=== PATIENT | male | born 1940 | race Caucasian/White ===

== ENCOUNTER → 2016-11-14 | Day surgery (SDC) | payer MEDICARE, BC, OTHER ==
[~2016-11-14] VITALS: Ht 193 cm; Wt 86.2 kg
[~2016-11-14] MED LIST: ACETAMINOPHEN 325 MG TAB PO PRN; ACETYLCHOLINE OPHTH SOLN 1% 2ML As Ordered ONE; AMLO25TA PO; ASPI1TAB PO; AcetaZOLAMIDE 500 MG ER CAP PO ONE; BALANCED SALT IRRIGATION SOLUTION 500ML BAG (FOR OR EYE MACHINE) As Ordered ONE; CEFUROXIME 1MG/0.1ML INTRACAMERAL INJ As Ordered ONE; CHLO0.124 MT; CYCLOPENTOLATE 2% OPHTH SOLN As Ordered ONE; CYCLOPENTOLATE 2% OPHTH SOLN XX ONE; D5W/0.2% SODIUM CHLORIDE 1,000 ML IV SCH; D5W/0.2% SODIUM CHLORIDE 250 ML IV SCH; DULC5TAB PO; GABA-282 PO; HEALON DUET (HEALON 10MG/ML 0.55ML & HEALON ENDOCOAT 30MG/ML 0.85ML) As Ordered ONE; KETOROLAC 0.5% OPHTH SOLN OD ONE; LATA5OPD OU; LIDOCAINE 1% SDV 5 ML VIAL As Ordered ONE; LIDOCAINE 4% INJ 5 ML AMP OU ONE; MAGO400T PO; MIDAZOLAM INJ 2 MG/2 ML VIAL (J2250) As Ordered ONE; OCUVCAP2 PO; OFLOXACIN 0.3 % (OCUFLOX) OPTH SOL 5ML As Ordered ONE; OFLOXACIN 0.3 % (OCUFLOX) OPTH SOL 5ML XX ONE; OMEG100011 PO; PHENYLEPHRINE 2.5% OPHTH SOL 2ML As Ordered ONE; PHENYLEPHRINE 2.5% OPHTH SOL 2ML XX ONE; POVIDONE-IODINE 5% OPHTH PREP SOL 30ML As Ordered ONE; PROPARACAINE 0.5% OPHTH SOL 15ML OD PRN; PROSCAP PO; SIMV40TA2 PO; TRIMETHOBENZAMIDE 300 MG CAP PO PRN; TROPICAMIDE 1% OPHTH SOLN 2 ML As Ordered ONE; TROPICAMIDE 1% OPHTH SOLN 2 ML XX ONE; fentaNYL 100 MCG/2 ML INJECTION (J3010) As Ordered ONE
[2016-11-14 09:05] VITALS: BP 165/71
--- NOTE | 2016-11-14 09:22 | RO ---
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 POSTPROCEDURE DIAGNOSIS: Age-related nuclear cataract and open-angle glaucoma, right eye. PROCEDURE: Phacoemulsification and posterior chamber intraocular lens implantation and endocyclophotocoagulation right eye. Lens used was an AU00T0, 18.5 Diopter. ANESTHESIA: Topical with sedation. DESCRIPTION OF PROCEDURE: The patient was prepped and draped in the usual fashion. A lid speculum was placed between the lids. The eye was fixated. A stab incision was made to the anterior chamber, and 1% non-preserved Lidocaine and viscoelastic was instilled. The eye was re-fixated. A 2.4 mm keratome was used to make a clear corneal temporal limbal incision. Capsulorrhexis was begun with a 30-gauge bent needle and then carried out in a circular fashion with capsulorrhexis forceps. The lens was hydrodissected, and phacoemulsification was used to groove the nucleus in two meridians. The nucleus was then cracked into four quadrants. Each quadrant was removed with the phacoemulsification unit. Any remaining cortex was removed with the I A unit. Capsular bag was refilled with viscoelastic. A posterior chamber intraocular lens was placed in the capsular bag without difficulty. The eye was refilled with viscoelastic ballooning up the iris and the endocyclophotocoagulation probe was introduced into the eye. THe ciliary processes were directly visualized and 270 degrees of ciliary processes were lasered without difficulty. The probe was removed and any remaining viscoelastic was removed with the I A unit. The wound was hydrated, and Miochol and cefuroxime were instilled. The patient tolerated the procedure well and went to the recovery room in stable condition.
== END | disposition home or self-care (01) ==
LOC: M SDC 06:50
PROVIDERS: ATTEND Ophthalmology
DX: H25.11 Age-related nuclear cataract, right eye (principal); H40.10X0 Unspecified open-angle glaucoma, stage unspecified; I10 Essential (primary) hypertension; E78.5 Hyperlipidemia, unspecified; N40.0 Benign prostatic hyperplasia without lower urinary tract symptoms; Z79.82 Long term (current) use of aspirin; Z79.899 Other long term (current) drug therapy
CPT/HCPCS: 66711; 66984; J2250; J3010; V2632

== ENCOUNTER → 2017-01-15 | Outpatient (REF) | payer MEDICARE, OTHER ==
[~2017-01-15] MED LIST changes: -ACETAMINOPHEN 325 MG TAB PO PRN; -ACETYLCHOLINE OPHTH SOLN 1% 2ML As Ordered ONE; -AcetaZOLAMIDE 500 MG ER CAP PO ONE; -BALANCED SALT IRRIGATION SOLUTION 500ML BAG (FOR OR EYE MACHINE) As Ordered ONE; -CEFUROXIME 1MG/0.1ML INTRACAMERAL INJ As Ordered ONE; -CYCLOPENTOLATE 2% OPHTH SOLN As Ordered ONE; -CYCLOPENTOLATE 2% OPHTH SOLN XX ONE; -D5W/0.2% SODIUM CHLORIDE 1,000 ML IV SCH; -D5W/0.2% SODIUM CHLORIDE 250 ML IV SCH; -HEALON DUET (HEALON 10MG/ML 0.55ML & HEALON ENDOCOAT 30MG/ML 0.85ML) As Ordered ONE; -KETOROLAC 0.5% OPHTH SOLN OD ONE; -LIDOCAINE 1% SDV 5 ML VIAL As Ordered ONE; -LIDOCAINE 4% INJ 5 ML AMP OU ONE; -MIDAZOLAM INJ 2 MG/2 ML VIAL (J2250) As Ordered ONE; -OFLOXACIN 0.3 % (OCUFLOX) OPTH SOL 5ML As Ordered ONE; -OFLOXACIN 0.3 % (OCUFLOX) OPTH SOL 5ML XX ONE; -PHENYLEPHRINE 2.5% OPHTH SOL 2ML As Ordered ONE; -PHENYLEPHRINE 2.5% OPHTH SOL 2ML XX ONE; -POVIDONE-IODINE 5% OPHTH PREP SOL 30ML As Ordered ONE; -PROPARACAINE 0.5% OPHTH SOL 15ML OD PRN; -TRIMETHOBENZAMIDE 300 MG CAP PO PRN; -TROPICAMIDE 1% OPHTH SOLN 2 ML As Ordered ONE; -TROPICAMIDE 1% OPHTH SOLN 2 ML XX ONE; -fentaNYL 100 MCG/2 ML INJECTION (J3010) As Ordered ONE
[2017-01-17 00:08] LABS: PSA % FREE 20.4 % (.); PSA FREE 1.1 ng/mL; PSA TOTAL 5.4 ng/mL (0.0-4.0)
== END ==
LOC: M LABDRAW1 10:56
PROVIDERS: ATTEND Urology
DX: R97.20 Elevated prostate specific antigen [PSA] (principal)

== ENCOUNTER → 2017-05-10 | Outpatient (REF) | payer MEDICARE, OTHER ==
[2017-05-10 13:33] LABS: ALBUMIN 3.8 GM/DL (3.2-5.2); ALBUMIN/GLOBULIN RATIO 1.15 (1.00-1.93); ALKALINE PHOSPHATASE 44 U/L (45-117); ALT/SGPT 26 U/L (12-78); ANION GAP 7 MEQ/L (8-16); AST/SGOT 16 U/L (15-37); BILIRUBIN,TOTAL 0.6 MG/DL (0.2-1.0); BLOOD UREA NITROGEN 22 MG/DL (7-18); CALCIUM LEVEL 8.6 MG/DL (8.8-10.2); CARBON DIOXIDE LEVEL 29 MEQ/L (21-32); CHLORIDE LEVEL 104 MEQ/L (98-107); CHOLESTEROL LEVEL 157 MG/DL (<200); CREATININE FOR GFR 0.74 MG/DL (0.70-1.30); GLOMERULAR FILTRATION RATE > 60.0 (>42); GLUCOSE, FASTING 93 MG/DL (83-110); POTASSIUM SERUM 3.9 MEQ/L (3.5-5.1); SODIUM LEVEL 140 MEQ/L (136-145); TOTAL PROTEIN 7.1 GM/DL (6.4-8.2); TRIGLYCERIDES LEVEL 123 MG/DL (<150)
== END ==
LOC: M LABDRAW1 09:36
PROVIDERS: ATTEND Emergency Medicine
DX: I10 Essential (primary) hypertension (principal)

== ENCOUNTER → 2018-04-15 | Outpatient (REF) | payer MEDICARE, OTHER ==
[2018-04-15 17:47] LABS: C REACTIVE PROTEIN QUANTITATIV < 0.30 MG/DL (0.00-0.30)
[2018-04-15 18:07] LABS: ERYTHROCYTE SEDIMENTATION RATE 5 mm/hr (0-20)
[2018-04-18 14:14] LABS: Lyme Disease IgG Ab 18 kDa Ban Absent (.); Lyme Disease IgG Ab 23 kDa Ban Absent (.); Lyme Disease IgG Ab 28 kDa Ban Absent (.); Lyme Disease IgG Ab 30 kDa Ban Absent (.); Lyme Disease IgG Ab 39 kDa Ban Absent (.); Lyme Disease IgG Ab 41 kDa Ban Present (.); Lyme Disease IgG Ab 45 kDa Ban Absent (.); Lyme Disease IgG Ab 58 kDa Ban Absent (.); Lyme Disease IgG Ab 66 kDa Ban Absent (.); Lyme Disease IgG Ab 93 kDa Ban Absent (.); Lyme Disease IgG West Blot Int Negative (.); Lyme Disease IgG/IgM Antibodie <0.91 ISR (0.00-0.90); Lyme Disease IgM Ab 23 kDa Ban Absent (.); Lyme Disease IgM Ab 39 kDa Ban Absent (.); Lyme Disease IgM Ab 41 kDa Ban Absent (.); Lyme Disease IgM Ab Quantitati 0.91 index (0.00-0.79); Lyme Disease IgM West Blot Int Negative (.)
== END ==
LOC: M LABDRAW1 15:59
DX: M25.50 Pain in unspecified joint (principal); S20.361A Insect bite (nonvenomous) of right front wall of thorax, initial encounter; W57.XXXA Bitten or stung by nonvenomous insect and other nonvenomous arthropods, initial encounter; Y92.9 Unspecified place or not applicable
CPT/HCPCS: 86140

== ENCOUNTER → 2018-05-23 | Outpatient (REF) | payer MEDICARE, OTHER ==
[2018-05-23 13:20] LABS: ALBUMIN 3.8 GM/DL (3.2-5.2); ALBUMIN/GLOBULIN RATIO 1.15 (1.00-1.93); ALKALINE PHOSPHATASE 47 U/L (45-117); ALT/SGPT 23 U/L (12-78); ANION GAP 8 MEQ/L (8-16); AST/SGOT 14 U/L (7-37); BILIRUBIN,TOTAL 0.7 MG/DL (0.2-1.0); BLOOD UREA NITROGEN 22 MG/DL (7-18); CALCIUM LEVEL 8.4 MG/DL (8.8-10.2); CARBON DIOXIDE LEVEL 31 MEQ/L (21-32); CHLORIDE LEVEL 105 MEQ/L (98-107); CHOLESTEROL LEVEL 171 MG/DL (<200); CHOLESTEROL RISK RATIO 3.166 (<5); CREATININE FOR GFR 0.86 MG/DL (0.70-1.30); GLOMERULAR FILTRATION RATE > 60.0 (>35); GLUCOSE, FASTING 93 MG/DL (70-100); HDL CHOLESTEROL 54 MG/DL (>40); LDL CHOLESTEROL 96 MG/DL (<100); NON-HDL-C 117 MG/DL; POTASSIUM SERUM 4.2 MEQ/L (3.5-5.1); SODIUM LEVEL 144 MEQ/L (136-145); TOTAL PROTEIN 7.1 GM/DL (6.4-8.2); TRIGLYCERIDES LEVEL 103 MG/DL (<150)
== END ==
LOC: M LABDRAW1 12:15
DX: I10 Essential (primary) hypertension (principal)
CPT/HCPCS: 80053

== ENCOUNTER → 2018-08-19 | Outpatient (REF) | payer MEDICARE, OTHER ==
[~2018-08-19] MED LIST changes: -GABA-282 PO; +GABA-843 PO
[2018-08-19 20:23] LABS: BLOOD UREA NITROGEN 26 MG/DL (7-18); CREATININE FOR GFR 0.76 MG/DL (0.70-1.30); GLOMERULAR FILTRATION RATE > 60.0 (>35)
== END ==
LOC: M LAB REF 11:40
PROVIDERS: ATTEND Physician Assistant
DX: M16.12 Unilateral primary osteoarthritis, left hip (principal)

== ENCOUNTER → 2019-01-12 | Outpatient (CLI) | payer MEDICARE, OTHER ==
[~2019-01-12] MED LIST changes: -ASPI1TAB PO; +ASPI81TA26 PO; +LATA0.0013 OU; -LATA5OPD OU
[2019-01-14 14:09] LABS: PSA % FREE 23.5 % (.); PSA FREE 1.41 ng/mL
== END ==
LOC: M SMT 11:13
PROVIDERS: ATTEND Urology
DX: Z87.898 Personal history of other specified conditions (principal)
CPT/HCPCS: 36415; 84154; G0463

== ENCOUNTER → 2019-05-11 | Outpatient (REF) | payer MEDICARE, OTHER ==
[~2019-05-11] MED LIST changes: -SIMV40TA2 PO; +SIMV40TA20 PO
[2019-05-11 12:04] LABS: BASO % 0.8 % (0.0-1.0); EOS # 0.1 10^3/uL (0.0-0.5); EOS % 2.5 % (0.0-3.0); HEMATOCRIT 44.6 % (42.0-52.0); HEMOGLOBIN 14.5 g/dl (13.5-17.5); LYMPH # 1.8 10^3/uL (1.5-5.0); LYMPH % 36.4 % (24.0-44.0); MEAN CORPUSCULAR HEMOGLOBIN 29.2 pg (27.0-33.0); MEAN CORPUSCULAR HGB CONC 32.5 g/dl (32.0-36.5); MEAN CORPUSCULAR VOLUME 89.9 fl (80.0-96.0); MONO # 0.5 10^3/uL (0.0-0.8); MONO % 10.8 % (0.0-5.0); NEUTROPHILS # 2.4 10^3/uL (1.5-8.5); NEUTROPHILS % 49.3 % (36.0-66.0); PLATELET COUNT, AUTOMATED 220 10^3/uL (150-450); RED BLOOD COUNT 4.96 10^6/uL (4.30-6.10); WHITE BLOOD COUNT 4.8 10^3/uL (4.0-10.0)
[2019-05-11 12:07] LABS: ALT/SGPT 24 U/L (12-78); BILIRUBIN,TOTAL 0.8 MG/DL (0.2-1.0); BLOOD UREA NITROGEN 25 MG/DL (7-18); CALCIUM LEVEL 8.7 MG/DL (8.8-10.2); CARBON DIOXIDE LEVEL 31 MEQ/L (21-32); CHLORIDE LEVEL 107 MEQ/L (98-107); CHOLESTEROL LEVEL 168 MG/DL (<200); CHOLESTEROL RISK RATIO 2.896 (<5); CREATININE FOR GFR 0.92 MG/DL (0.70-1.30); GLOMERULAR FILTRATION RATE > 60.0 (>35); GLUCOSE, FASTING 101 MG/DL (70-100); HDL CHOLESTEROL 58 MG/DL (>40); LDL CHOLESTEROL 92 MG/DL (<100); NON-HDL-C 110 MG/DL; POTASSIUM SERUM 3.8 MEQ/L (3.5-5.1); SODIUM LEVEL 142 MEQ/L (136-145); TOTAL PROTEIN 7.4 GM/DL (6.4-8.2); TRIGLYCERIDES LEVEL 92 MG/DL (<150)
== END ==
LOC: M LABDRAW1 07:59
PROVIDERS: ATTEND Physician Assistant
DX: E78.2 Mixed hyperlipidemia (principal); M15.0 Primary generalized (osteo)arthritis

== ENCOUNTER → 2020-01-27 | Outpatient (REF) | payer MEDICARE, OTHER ==
[~2020-01-27] MED LIST changes: +AMLO1TAB25 PO; +MELA3TAB30 PO
== END ==
LOC: M LABSMT 14:17 → M SFHCADAM 14:22
PROVIDERS: ATTEND Nurse Practitioner Women's Health
DX: Z87.898 Personal history of other specified conditions (principal); R97.20 Elevated prostate specific antigen [PSA]

== ENCOUNTER → 2020-01-29 | Outpatient (REF) | payer MEDICARE, OTHER ==
[~2020-01-29] MED LIST changes: -AMLO1TAB25 PO; -MELA3TAB30 PO
[2020-01-29 18:03] LABS: BASO % 0.6 % (0.0-1.0); EOS # 0.1 10^3/uL (0.0-0.5); HEMOGLOBIN 13.3 g/dl (13.5-17.5); LYMPH # 1.4 10^3/uL (1.5-5.0); MEAN CORPUSCULAR HEMOGLOBIN 28.1 pg (27.0-33.0); MEAN CORPUSCULAR HGB CONC 31.7 g/dl (32.0-36.5); MEAN CORPUSCULAR VOLUME 88.6 fl (80.0-96.0); MONO # 0.5 10^3/uL (0.0-0.8); NEUTROPHILS # 3.1 10^3/uL (1.5-8.5); PLATELET COUNT, AUTOMATED 223 10^3/uL (150-450); RED BLOOD COUNT 4.74 10^6/uL (4.30-6.10); WHITE BLOOD COUNT 5.1 10^3/uL (4.0-10.0)
[2020-01-29 18:17] LABS: ALBUMIN 3.7 GM/DL (3.2-5.2); ALT/SGPT 23 U/L (12-78); BILIRUBIN,TOTAL 0.6 MG/DL (0.2-1.0); BLOOD UREA NITROGEN 26 MG/DL (7-18); CALCIUM LEVEL 8.7 MG/DL (8.8-10.2); CARBON DIOXIDE LEVEL 28 MEQ/L (21-32); CHLORIDE LEVEL 106 MEQ/L (98-107); CREATININE FOR GFR 0.88 MG/DL (0.70-1.30); GLOMERULAR FILTRATION RATE > 60.0 (>35); GLUCOSE, FASTING 115 MG/DL (70-100); POTASSIUM SERUM 4.1 MEQ/L (3.5-5.1); SODIUM LEVEL 139 MEQ/L (136-145); TOTAL PROTEIN 7.1 GM/DL (6.4-8.2)
== END ==
LOC: M LABDRWAD 17:14
PROVIDERS: ATTEND Physician Assistant
DX: R53.83 Other fatigue (principal)

== ENCOUNTER 2020-05-07 09:22 | Emergency (ER) | payer MEDICARE, BC, OTHER ==
[~2020-05-07] VITALS: Ht 193 cm; Wt 87.5 kg
[2020-05-07] MEDS ORDERED: AMLO1TAB25 PO (09:35)
[2020-05-07] MEDS ORDERED: MELA3TAB30 PO (11:53)
[2020-05-07 12:11] VITALS: BP 142/68
== END 2020-05-07 12:18 | disposition home or self-care (01) ==
LOC: M ED 09:22
DX: F41.9 Anxiety disorder, unspecified (principal); G47.00 Insomnia, unspecified; I10 Essential (primary) hypertension; E78.5 Hyperlipidemia, unspecified; N40.0 Benign prostatic hyperplasia without lower urinary tract symptoms; Z85.828 Personal history of other malignant neoplasm of skin; H40.9 Unspecified glaucoma; Z86.79 Personal history of other diseases of the circulatory system; Z79.82 Long term (current) use of aspirin; Z79.899 Other long term (current) drug therapy

== ENCOUNTER → 2020-06-07 | Outpatient (REF) | payer MEDICARE, BC, OTHER ==
[~2020-06-07] MED LIST changes: +AMLO1TAB25 PO; +MELA3TAB30 PO
[2020-06-07 12:53] LABS: BASO # 0.1 10^3/uL (0.0-0.2); BASO % 1.2 % (0.0-1.0); EOS # 0.2 10^3/uL (0.0-0.5); EOS % 3.1 % (0.0-3.0); HEMATOCRIT 44.7 % (42.0-52.0); HEMOGLOBIN 14.2 g/dl (13.5-17.5); LYMPH # 1.7 10^3/uL (1.5-5.0); LYMPH % 35.7 % (24.0-44.0); MEAN CORPUSCULAR HEMOGLOBIN 28.7 pg (27.0-33.0); MEAN CORPUSCULAR HGB CONC 31.8 g/dl (32.0-36.5); MEAN CORPUSCULAR VOLUME 90.3 fl (80.0-96.0); MONO # 0.5 10^3/uL (0.0-0.8); MONO % 11.2 % (0.0-5.0); NEUTROPHILS # 2.4 10^3/uL (1.5-8.5); NEUTROPHILS % 48.8 % (36.0-66.0); PLATELET COUNT, AUTOMATED 215 10^3/uL (150-450); RED BLOOD COUNT 4.95 10^6/uL (4.30-6.10); WHITE BLOOD COUNT 4.8 10^3/uL (4.0-10.0)
[2020-06-07 13:28] LABS: ALBUMIN 3.9 GM/DL (3.2-5.2); ALT/SGPT 21 U/L (12-78); BILIRUBIN,TOTAL 0.7 MG/DL (0.2-1.0); BLOOD UREA NITROGEN 21 MG/DL (7-18); CALCIUM LEVEL 8.5 MG/DL (8.8-10.2); CARBON DIOXIDE LEVEL 31 MEQ/L (21-32); CHLORIDE LEVEL 105 MEQ/L (98-107); CHOLESTEROL LEVEL 159 MG/DL (<200); CHOLESTEROL RISK RATIO 3.456 (<5); CREATININE FOR GFR 0.84 MG/DL (0.70-1.30); GLOMERULAR FILTRATION RATE > 60.0 (>35); GLUCOSE, FASTING 99 MG/DL (70-100); HDL CHOLESTEROL 46 MG/DL (>40); LDL CHOLESTEROL 92 MG/DL (<100); NON-HDL-C 113 MG/DL; POTASSIUM SERUM 4.5 MEQ/L (3.5-5.1); SODIUM LEVEL 140 MEQ/L (136-145); TRIGLYCERIDES LEVEL 103 MG/DL (<150)
== END ==
LOC: M LABDRWAD 12:31
PROVIDERS: ATTEND Physician Assistant Medical
DX: M15.0 Primary generalized (osteo)arthritis (principal); I10 Essential (primary) hypertension

== ENCOUNTER → 2020-08-29 | Outpatient (CLI) | payer MEDICARE, BC, OTHER ==
[~2020-08-29] MED LIST changes: +ASPI81TAEC PO; +DONETAB5 PO; +ECOT81TA5 PO; +GABA-282 PO; -GABA-843 PO; +JOINCAP2 PO; +MAGN400C PO; +PERC5TAB12 PO; +SIMV20TA22 PO; +XALA0.007 OU
[2020-08-29 15:16] LABS: BASO % 0.3 % (0.0-1.0); EOS # 0.1 10^3/uL (0.0-0.5); EOS % 0.6 % (0.0-3.0); HEMATOCRIT 45.5 % (42.0-52.0); HEMOGLOBIN 15.1 g/dl (13.5-17.5); LYMPH # 1.3 10^3/uL (1.5-5.0); LYMPH % 15.3 % (24.0-44.0); MEAN CORPUSCULAR HEMOGLOBIN 29.5 pg (27.0-33.0); MEAN CORPUSCULAR HGB CONC 33.2 g/dl (32.0-36.5); MEAN CORPUSCULAR VOLUME 88.9 fl (80.0-96.0); MONO # 0.9 10^3/uL (0.0-0.8); NEUTROPHILS # 6.4 10^3/uL (1.5-8.5); NEUTROPHILS % 73.6 % (36.0-66.0); PLATELET COUNT, AUTOMATED 204 10^3/uL (150-450); RED BLOOD COUNT 5.12 10^6/uL (4.30-6.10); WHITE BLOOD COUNT 8.7 10^3/uL (4.0-10.0)
[2020-08-29 15:39] LABS: ERYTHROCYTE SEDIMENTATION RATE 7 mm/hr (0-20)
[2020-08-29 15:47] LABS: ALT/SGPT 26 U/L (12-78); BILIRUBIN,TOTAL 0.7 MG/DL (0.2-1.0); BLOOD UREA NITROGEN 28 MG/DL (7-18); CALCIUM LEVEL 9.3 MG/DL (8.8-10.2); CARBON DIOXIDE LEVEL 32 MEQ/L (21-32); CHLORIDE LEVEL 102 MEQ/L (98-107); GLOMERULAR FILTRATION RATE > 60.0 (>35); GLUCOSE, FASTING 106 MG/DL (70-100); POTASSIUM SERUM 4.3 MEQ/L (3.5-5.1); SODIUM LEVEL 141 MEQ/L (136-145); TOTAL PROTEIN 7.4 GM/DL (6.4-8.2)
--- NOTE | 2020-08-29 16:18 | REP ---
INDICATION: UNILAT PRIMARY OSTEOARTHRITIS, LEFT HIP, LAB 1ST EKG 2ND XR. COMPARISON: None. TECHNIQUE: PA and lateral views FINDINGS: The superior mediastinal structures are midline. The cardiac silhouette is unremarkable in size, shape, and position. The diaphragmatic surfaces of the lungs are regular, and the costophrenic angles are clear. The pulmonary hinkle are mildly hyperexpanded but clear. The imaged osseous structures are intact. IMPRESSION: There is no acute cardiopulmonary disease. <Electronically signed by Driss Mart > 08/29/20 [id number]
--- NOTE | 2020-08-30 16:12 | ECGEPIP ---
[facility] Test Date: 2020-08-29 Pat Name: BAKARI DAVID Department: Room: - Gender: Male [place] Tender: : 1940 Requested By: Paras Burton Order Number: [id number] Reading MD: Jan Snow Measurements Intervals [place] Rate: 57 P: 104 MD: 206 QRS: 79 QRSD: 182 T: 37 QT: 463 QTc: 452 Interpretive Statements Sinus bradycardia Right axis deviation with right bundle branch block No prior tracing for comparison. Electronically Signed on 08-30-2020 16:11:37 EST by Jan Snow
== END ==
LOC: M LAB 14:47
PROVIDERS: ATTEND Orthopaedic Surgery
DX: M16.12 Unilateral primary osteoarthritis, left hip (principal); Z79.899 Other long term (current) drug therapy

== ENCOUNTER → 2020-08-31 | Outpatient (CLI) | payer MEDICARE, BC, OTHER | LOC: M LABSMTC 10:13 | PROVIDERS: ATTEND Anesthesiology | DX: Z01.812 Encounter for preprocedural laboratory examination (principal); Z20.822 Contact with and (suspected) exposure to COVID-19 ==

== ENCOUNTER → 2020-09-01 | Outpatient (CLI) | payer MEDICARE, BC, OTHER ==
[~2020-09-01] MED LIST changes: -ASPI81TAEC PO; -ECOT81TA5 PO; -PERC5TAB12 PO; -SIMV20TA22 PO; +XALA0.007; -XALA0.007 OU
[2020-09-01 18:25] LABS: INR 0.98; PROTHROMBIN TIME 13.2 SECONDS (12.5-14.3)
== END ==
LOC: M LAB 16:19
PROVIDERS: ATTEND Physician Assistant
DX: Z01.818 Encounter for other preprocedural examination (principal)

== ENCOUNTER 2020-09-05 07:30 | Inpatient (IN) | payer MEDICARE, BC, OTHER ==
--- NOTE | 2020-09-01 13:51 | HPE ---
HISTORY AND PHYSICAL DATE OF ANTICIPATED ADMISSION: 09/05/2020 ADMITTING DIAGNOSIS: Osteoarthritis left hip. HISTORY: This is an 80-year-old male with progressively worsening left hip pain and stiffness who has failed to improve with conservative management. He has elected for surgery for his continued symptoms. He has pain with weightbearing activities and activities of daily living. He was consented by Dr. Elliott for a left total hip arthroplasty. X-rays notable for end-stage degenerative changes of the left hip. Medical optimization by Dr. Rhoades. CURRENT MEDICATIONS: 1. Amlodipine 5 mg one tablet once per day. 2. Donepezil 5 mg one tablet once per day. 3. Gabapentin 300 mg one tablet at bedtime. 4. Simvastatin 20 mg one tablet once per day. 5. Aspirin 81 mg once per day (knows to discontinue that five days prior to surgery). 6. Magnesium 400 mg once tablet once per day. 7. Melatonin extended release 3 mg one tablet once per day. ALLERGIES: No known drug allergies. PAST MEDICAL HISTORY: 1. Hypertension. 2. Elevated lipids. 3. Dementia. 4. Symptomatic osteoarthritis of the left hip. 5. Atrial flutter. 6. Arrhythmia. 7. Glaucoma. 8. BPH. PAST SURGICAL HISTORY: 1. Colonoscopy. 2. Cardiac ablation. 3. Cataract removed bilaterally. SOCIAL HISTORY: He does not smoke. He does not use alcohol. He is retired. FAMILY HISTORY: Noncontributory. REVIEW OF SYSTEMS: Denies fever or chills. Denies chest pain, shortness of breath, or cough. Denies difficulty breathing. Denies recent exposure to COVID-19. Denies URI or UTI symptoms. He notes persistent pain in his left hip with weightbearing activities. PHYSICAL EXAMINATION: Exam today reveals a male patient that is well nourished, well developed, and slightly confused on exam today and walks with a limping gait favoring his left side. Skin around the hip is intact on the left side. No erythema, edema, or ecchymosis. There is irritability with hip range of motion. The leg is intact to light touch. It is a well perfused left lower extremity. The calf is soft and nontender to palpation. Neck is supple without adenopathy or JVD. The lungs are clear to auscultation without rales or wheeze. Heart: Regular rate and rhythm. Abdomen: Bowel sounds are present. Height 75 inches, weight 193 pounds, temperature 97.1, blood pressure 112/74, pulse 76, respirations 12. LABORATORY DATA: WBC count 8.7, RBC count 5.1, hemoglobin 15.1, hematocrit 45.5. Sed rate of 7. Glucose 106, BUN 26, creatinine 1.10, sodium 141, potassium 4.3. Chest x-ray: No acute cardiopulmonary disease process noted. EKG: Sinus bradycardia. IMPRESSION: Symptomatic osteoarthritis left hip. PLAN: We reviewed his pre and postoperative instructions. We discussed n.p.o. and what n.p.o. means. We discussed stopping all NSAIDs five days prior to surgery and what NSAIDs are. We also discussed stopping his aspirin five days prior, and he understands to self quarantine after his COVID testing. He knows he needs to be on time. He was given the phone number to call the hospital. All of his questions were answered. cc: Primary Care Physician
[~2020-09-05] VITALS: Ht 193 cm; Wt 87.5 kg
[~2020-09-05 07:30] MED LIST changes: +ACETAMINOPHEN 500 MG TAB PO ONE; +LR 1,000 ML IV ONE; -XALA0.007; +XALA0.007 OU; +ceFAZolin SOD 2 GM in IV 1 EA IV ONE
[2020-09-05] MEDS ORDERED: TRANEXAMIC ACID 100 MG/ML 10ML VIAL As Ordered ONE ×2 (10:08→10:49)
[2020-09-05] MEDS ORDERED: EPINEPHrine INJ 1 MG/ML 1ML AMP As Ordered ONE (10:09)
[2020-09-05] MEDS ORDERED: ceFAZolin 1GM VIAL (J0690 PER 500MG) As Ordered ONE (10:09)
[2020-09-05] MEDS ORDERED: propofoL 200 MG/20 ML VIAL As Ordered ONE (10:46)
[2020-09-05] MEDS ORDERED: ONDANSETRON 4MG/2ML VIAL As Ordered ONE (10:46)
[2020-09-05] MEDS ORDERED: LIDOCAINE 2% 100MG/5ML SDV (FOR ANES.) As Ordered ONE (10:46)
[2020-09-05] MEDS ORDERED: fentaNYL 100 MCG/2 ML INJECTION (J3010) As Ordered ONE (10:46)
[2020-09-05] MEDS ORDERED: MIDAZOLAM INJ 2MG/2ML VIAL (J2250 PER 1MG) As Ordered ONE (10:47)
[2020-09-05] MEDS ORDERED: PHENYLephrine 500MCG 5ML (100MCG/ML) SYRINGE As Ordered ONE (12:43)
[2020-09-05] MEDS ORDERED: ePHEDrine SULFATE 25 MG/5 ML(5MG/ML) SYRINGE As Ordered ONE (12:43)
[2020-09-05] MEDS ORDERED: fentaNYL 100 MCG/2 ML INJECTION (J3010) IV PRN (14:00)
[2020-09-05] MEDS ORDERED: oxyCODONE 5MG TAB PO PRN (14:00)
[2020-09-05] MEDS ORDERED: ONDANSETRON 4MG/2ML VIAL IV PRN ×2 (14:00→15:00)
[2020-09-05] MEDS ORDERED: LR 1,000 ML IV SCH ×2 (14:00→15:00)
[2020-09-05] MEDS ORDERED: MORPHINE 2 MG/ML 1ML VIAL (J2270) IV PRN ×2 (14:00→15:00)
[2020-09-05] MEDS ORDERED: METOCLOPRAMIDE INJ 10MG/2ML VIAL (J2765 PER 1) IV PRN (14:00)
--- NOTE | 2020-09-05 14:11 | REP ---
INDICATION: POST OP PLACEMENT . WILL CALL. COMPARISON: None. TECHNIQUE: AP and cross-table lateral views of the left hip are obtained. FINDINGS: Patient is status post left hip arthroplasty. Acetabular and femoral components are well aligned with respect to each other and the [place] bones. Lateral skin douglas are seen. Geraldine operative periarticular soft tissue emphysema is seen. IMPRESSION: Left hip arthroplasty. <Electronically signed by Alden Marrero > 09/05/20 [id number]
[2020-09-05 15:00] VITALS: BP 145/70
[2020-09-05] MEDS ORDERED: ACETAMINOPHEN TAB 650MG DOSE (2X325MG) PO PRN (15:00)
[2020-09-05] MEDS ORDERED: PERCOCET 5MG/325MG TAB PO PRN (15:00)
[2020-09-05] MEDS ORDERED: MORPHINE 4 MG/ML 1ML VIAL/SYRINGE (J2270) IV PRN (15:00)
--- NOTE | 2020-09-05 15:14 | RO ---
OPERATIVE NOTE DATE OF OPERATION: 09/05/2020 PREOPERATIVE DIAGNOSIS: Degenerative arthritis of the left hip. POSTOPERATIVE DIAGNOSIS: Degenerative arthritis of the left hip. PROCEDURE: Left total hip arthroplasty using a size 8 Huntington standard offset stem with a 1.5 neck, with a 40 mm ball, with a 64 mm Gription cup and a 64 mm neutral polyethylene liner. Prosthesis was made by [employer]. It was a [place] stem. SURGEON: Paras Valles M.D. SENIOR STOCK PLAN ADMINISTRATOR: JESSICA Piper ANESTHESIA: Spinal. COMPLICATIONS: None. SPECIMENS: Femoral head. ESTIMATED BLOOD LOSS: 200 mL COMPLICATIONS: None. DESCRIPTION OF PROCEDURE: Antibiotics were given intravenously preoperatively and then a successful spinal anesthetic was induced. He was placed in lateral decubitus position with left hip up and a [place] hip positioner was utilized. The left hip area was carefully prepped and draped in the usual sterile fashion and after appropriate timeout, the longitudinal incision was made for a direct lateral approach to the hip. Bovie cautery was used to coagulate crossing vessels down through tensor fascia which was then divided in line with the skin incision. The gluteus medius was split in the anterior 1/3, posterior 2/3 junction and then the underlying gluteus minimus and anterior hip capsule divided and carefully dissected off the proximal femur as we externally rotated the hip and dislocated anteriorly. The piriformis fossa was identified and then a starter reamer utilized and then the canal finding reamer, then the lateralizing reamer. We then reamed up to a size #7 stem. We there at this point and then performed a femoral neck osteotomy and then used the box osteotome to set our version and began broaching up to size 7 but clearly the 7 was sinking too much and we felt it was best to go up to an 8. Thus, I did ream up to an 8, made sure we were about a finger's breadth above the lesser trochanter. We then removed the broach and exposed the acetabulum. We performed a labral excision 360 degrees. We then began reaming beginning first with a 50 and then we jumped to a 55 and then a 57 because he has a very large acetabulum. We then went by 1 mm increments up to 63. The 64 trial was placed and fit snuggly. There was a large anterior and inferior osteophyte which was removed with a curved osteotome. We then irrigated copiously, then asked for the real 64 Gription cup which was then placed using the extramedullary alignment jig to estimate her version and abduction. The cup seated nicely and then with a central hole, eliminator was placed and then the polyethylene was placed and then we exposed the proximal femur, copiously irrigated it as we did several times throughout the operation. The broach was then placed and then we trialed with a 1.5 x 40 mm head-neck combination and actually had excellent stability of the flexion, internal rotation and extension, external rotation with minimal soft tissue telescoping. It was felt this was the appropriate components used. The trials were then removed. The trial broach was then removed. We copiously irrigated out the femoral canal once again and placed the real #8 stem which seated nicely. We dried the trunion, placed the 40 mm x 1.5 ball, then reduced the hip after the irrigating once again. We then closed the anterior hip capsule and gluteus minimus back anatomically with interrupted #1 PDS sutures. The gluteus medius was closed back anatomically with interrupted #1 PDS sutures, irrigating between layers and closed the tensor fascia with a combination of #1 PDS sutures and a running #1 Stratafix. We irrigated between layers after placing tranexamic acid and then closed the deep subdermal tissues with interrupted 2-0 PDS sutures and the skin was closed with douglas covered by Optifoam and dry sterile bulky dressing. Moira Mojica was critical to the success of this difficult procedure by helping with the appropriate soft tissue retraction, helped to close the wound, helped to prepare the patient amongst many other tasks to allow me to perform the operation smoothly, efficiently and safely.
[2020-09-05 15:30] VITALS: BP 140/69
[2020-09-05] MEDS: PERCOCET 5MG/325MG TAB PO PRN (16:04)
[2020-09-05 16:30] VITALS: BP 119/50
[2020-09-05 17:30] VITALS: BP 120/54
[2020-09-05] MEDS: GABAPENTIN 300 MG CAP PO SCH (20:08)
[2020-09-05] MEDS: RAMELTEON 8 MG TAB (ROZEREM) PO SCH (20:08)
[2020-09-05] MEDS: ASPIRIN 81 MG ENTERIC TAB PO SCH (20:08)
[2020-09-05] MEDS: ceFAZolin SOD 2 GM in IV 1 EA IV SCH (20:08)
[2020-09-05] MEDS: SIMVASTATIN 40 MG TAB PO SCH (20:09)
[2020-09-05 20:15] VITALS: BP 138/72
--- NOTE | 2020-09-05 20:25 | CR.PDOC ---
General Date of Consultation: Sep 05, 2020 Referring Provider: Paras Valles Consultation REASON FOR CONSULTATION/CHIEF COMPLAINT: Medical comanagement, left total hip ar throplasty HISTORY OF PRESENT ILLNESS: Mr. Hardy is an 80-year-old male with dementia and hypertension who is here for an elective left total hip arthroplasty for osteoarthritis of the left hip. Dr. Valles performed surgery on 09/05/2020. He is seen this evening. When I saw him, he is very anxious. He does not know why he is anxious and he is not anxious about one particular topic. He tells me that this has been going on for a while, but doesn't know when it started. When I spoke to his , she said he's had it since the pandemic started. He takes melatonin and gabapentin at night which helps him sleep and improves his an xiety. She tells me that he is worried about sleeping on his back because he is normally side sleeper. She thinks he is worried that he would break his hip if he were to sleep on his side. His tells me that he does not have a walker at home or a commode. Otherwise, patient denies any fever or chills, chest pain, palpitations, dyspnea, abdominal pain, or dysuria. ALLERGIES: Please see below. HOME MEDICATIONS: Please see below. PAST MEDICAL HISTORY: 1. Hypertension. 2. Elevated lipids. 3. Dementia. 4. Symptomatic osteoarthritis of the left hip. 5. Atrial flutter. 6. Arrhythmia. 7. Glaucoma. 8. BPH. PAST SURGICAL HISTORY: 1. Colonoscopy. 2. Cardiac ablation. 3. Cataract removed bilaterally. FAMILY HISTORY: Father: at the age of 67. Unknown medical history Mother: Past away at the age of 90. Unknown medical history, but he says she passed way from old age SOCIAL HISTORY: Tobacco use: Denies ETOH: Denies Illicit drug use: Denies REVIEW OF SYSTEMS: CONSTITUTIONAL: Denies any fever or chills. ENT: Denies sore throat. RESPIRATORY: Denies shortness of breath. Denies cough. CARDIOVASCULAR: Denies chest pain. Denies palpitations. GASTROINTESTINAL: Denies abdominal pain. Denies diarrhea. GENITOURINARY: Denies dysuria. CUTANEOUS: Denies rashes. MUSCULOSKELETAL: Denies muscle weakness. NEUROLOGICAL: Denies paresthesias. PSYCHOLOGICAL: Reports anxiety PHYSICAL EXAMINATION: VITAL SIGNS: Please see below. GENERAL: He appears anxious, but not in any respiratory or physical distress. HEENT: Head normocephalic/atraumatic, EOMI, sclera clear. NECK: Supple, no JVD. RESPIRATORY: Lungs clear to auscultation bilaterally, no rales, wheeze or rhonchi. CARDIOVASCULAR: Regular rate and rhythm. ABDOMEN: Soft, nontender, no guarding or rebound tenderness. Normal bowel sounds. MUSCLE SKELETAL: Muscle strength 5/5 in upper extremity. NEUROLOGICAL: CN 312 grossly intact, no focal deficits noted. PSYCHOLOGICAL: Generalized anxiety LABORATORY DATA: Please see below. ASSESSMENT/PLAN: 1. Left hip osteoarthritis status post left hip arthroplasty Performed by Dr. Valles on 09/05/2020 Surgery went well Disposition per orthopedic surgery 2. Generalized anxiety reports that he's been anxious since the beginning of the pandemic reports that his anxiety may be worse because he normally sleeps on his side. He is worried that he would be able sleep on his back. He is worried that if he sleeps on his side he'll break his hip. reports that his anxiety would be better if he could sleep Replace melatonin with ramelteon Continue gabapentin at bedtime 3. Dementia Continue Donepezil At risk for hospital-acquired psychosis Supportive care and reorientation Good night sleep 4. Insomnia May be secondary to anxiety Replace melatonin with ramelteon Continue gabapentin at bedtime 5. Hypertension Continue amlodipine 6. DVT prophylaxis Per orthopedic surgery Thank you for consulting us. We will continue following along. Vital Signs/I&O Vital Signs Date Time Temp Pulse Resp B/P (MAP) Pulse Ox O2 Delivery O2 Flow Rate FiO2 09/05/20 18:30 98.3 62 20 99 Room Air 09/05/20 17:30 120/54 (76) 09/05/20 14:32 2 Allergies Coded Allergies: No Known Allergies (Unverified , 09/05/20) Home Medications Scheduled Amlodipine Besylate (Amlodipine Besylate) 10 Mg Tablet, 0.5 TAB PO DAILY, (Reported) Aspirin (Aspirin EC) 81 Mg Tab, 81 MG PO DAILY, #30 (Reported) D3/E/Se/Soy Isofl/Tocoph/Lycop (Prostate 2.4 Capsule) 1 Cap Cap, 1 CAP PO DAILY, (Reported) Donepezil Hcl (Donepezil HCl Odt) 5 Mg Tab.rapdis, 5 MG PO DAILY, (Reported) Gabapentin (Gabapentin) 300 Mg Cap, 300 MG PO DAILY, (Reported) Gluc/MSM/C/[place]/Manganes/Prim (Joint Support Complex Softgel) 1 Each Capsule, 1 CAP PO DAILY, (Reported) Latanoprost (Xalatan) 0.005% 2.5ML Drops, DAILY, (Reported) Magnesium Oxide (Magnesium) 400 Mg Capsule, 400 MG PO every other day, (Reported) Melatonin (Melatonin) 3 Mg Tablet, 1 TAB PO QPM for sleep for 30 Days, #30 [place]-3 Fatty Acids/Fish Oil ([place] 3 1,000 mg Softgel) 1 Cap Cap, 1 CAP PO DAILY, (Reported) Simvastatin (Simvastatin) 40 Mg Tab, 20 MG PO QHS, (Reported) MEY BISHOP DO Sep 05, 2020 20:25
[2020-09-06] MEDS: PERCOCET 5MG/325MG TAB PO PRN ×2 (01:11→08:42)
[2020-09-06] MEDS: ceFAZolin SOD 2 GM in IV 1 EA IV SCH ×2 (05:13→13:06)
[2020-09-06 05:16] VITALS: BP 142/70
[2020-09-06 06:12] LABS: HEMATOCRIT 38.8 % (42.0-52.0); HEMOGLOBIN 12.4 g/dl (13.5-17.5); MEAN CORPUSCULAR HEMOGLOBIN 28.3 pg (27.0-33.0); MEAN CORPUSCULAR VOLUME 88.6 fl (80.0-96.0); PLATELET COUNT, AUTOMATED 207 10^3/uL (150-450); RED BLOOD COUNT 4.38 10^6/uL (4.30-6.10); WHITE BLOOD COUNT 8.4 10^3/uL (4.0-10.0)
[2020-09-06] MEDS ORDERED: PERC5TAB12 PO (06:30)
[2020-09-06] MEDS ORDERED: ECOT81TA5 PO (06:30)
[2020-09-06 06:35] LABS: ALBUMIN 3.6 GM/DL (3.2-5.2); ALT/SGPT 23 U/L (12-78); BLOOD UREA NITROGEN 23 MG/DL (7-18); CALCIUM LEVEL 8.6 MG/DL (8.8-10.2); CARBON DIOXIDE LEVEL 28 MEQ/L (21-32); CHLORIDE LEVEL 103 MEQ/L (98-107); CREATININE FOR GFR 0.91 MG/DL (0.70-1.30); GLOMERULAR FILTRATION RATE > 60.0 (>35); GLUCOSE, FASTING 133 MG/DL (70-100); POTASSIUM SERUM 3.9 MEQ/L (3.5-5.1); SODIUM LEVEL 138 MEQ/L (136-145); TOTAL PROTEIN 6.6 GM/DL (6.4-8.2)
[2020-09-06] MEDS: DONEPEZIL 5 MG TAB PO SCH (08:41)
[2020-09-06] MEDS: MOM 30ML SUSPENSION UDC PO SCH (08:41)
[2020-09-06] MEDS: amLODIPine 10 MG TAB PO SCH (08:42)
[2020-09-06] MEDS: ASPIRIN 81 MG ENTERIC TAB PO SCH ×2 (08:42→21:16)
[2020-09-06] MEDS: MIRALAX *UNIT DOSE* 17GM PACKET PO SCH (08:42)
[2020-09-06] MEDS ORDERED: GABAPENTIN 300 MG CAP PO SCH (09:00)
[2020-09-06 14:00] VITALS: BP 143/67
[2020-09-06] MEDS: GABAPENTIN 300 MG CAP PO SCH (21:16)
[2020-09-06] MEDS: SIMVASTATIN 40 MG TAB PO SCH (21:18)
[2020-09-06] MEDS: RAMELTEON 8 MG TAB (ROZEREM) PO SCH (21:19)
[2020-09-06 22:00] VITALS: BP 148/71
[2020-09-07 06:00] VITALS: BP 146/69
[2020-09-07 06:36] LABS: HEMATOCRIT 36.3 % (42.0-52.0); HEMOGLOBIN 11.8 g/dl (13.5-17.5); MEAN CORPUSCULAR HEMOGLOBIN 28.6 pg (27.0-33.0); MEAN CORPUSCULAR HGB CONC 32.5 g/dl (32.0-36.5); MEAN CORPUSCULAR VOLUME 88.1 fl (80.0-96.0); PLATELET COUNT, AUTOMATED 180 10^3/uL (150-450); RED BLOOD COUNT 4.12 10^6/uL (4.30-6.10); WHITE BLOOD COUNT 9.1 10^3/uL (4.0-10.0)
[2020-09-07 06:59] LABS: ALBUMIN 3.1 GM/DL (3.2-5.2); ALT/SGPT 18 U/L (12-78); BLOOD UREA NITROGEN 26 MG/DL (7-18); CALCIUM LEVEL 8.2 MG/DL (8.8-10.2); CARBON DIOXIDE LEVEL 31 MEQ/L (21-32); CHLORIDE LEVEL 104 MEQ/L (98-107); CREATININE FOR GFR 0.72 MG/DL (0.70-1.30); GLOMERULAR FILTRATION RATE > 60.0 (>35); GLUCOSE, FASTING 121 MG/DL (70-100); POTASSIUM SERUM 3.9 MEQ/L (3.5-5.1); SODIUM LEVEL 139 MEQ/L (136-145)
[2020-09-07] MEDS: MIRALAX *UNIT DOSE* 17GM PACKET PO SCH (09:33)
[2020-09-07] MEDS: MOM 30ML SUSPENSION UDC PO SCH (09:33)
[2020-09-07] MEDS: DONEPEZIL 5 MG TAB PO SCH (09:33)
[2020-09-07 09:34] VITALS: BP 146/69
[2020-09-07] MEDS: ASPIRIN 81 MG ENTERIC TAB PO SCH (09:34)
[2020-09-07] MEDS: amLODIPine 10 MG TAB PO SCH (09:34)
--- NOTE | 2020-09-07 11:51 | IPNPDOC ---
Date Seen The patient was seen on 09/07/20. Progress Note SUBJECTIVE: Patient was seen and examined at the bedside. chart has been reviewed. Per physical therapy, patient was slightly confused yesterday . He worked with physical therapy a little bit better today but complained of pain at the left hip rated at 7 out of 10. Patient said that he is very exhausted today and only slept for about 1 hour. No other complaints OBJECTIVE: PHYSICAL EXAMINATION: VITAL SIGNS: Please see below. GENERAL: Supine, in no distress, awakens easily and answers questions appropriately. [id number] HEENT: Head normocephalic/atraumatic, EOMI, sclera clear. NECK: Supple, no JVD. RESPIRATORY: Lungs clear to auscultation bilaterally, no rales, wheeze or rhonchi. CARDIOVASCULAR: Regular rate and rhythm. ABDOMEN: Soft, nontender, no guarding or rebound tenderness. Normal bowel sounds. MUSCLE SKELETAL: Muscle strength 5/5 in upper extremity. Postop left hip NEUROLOGICAL: CN 312 grossly intact, no focal deficits noted. PSYCHOLOGICAL: Generalized anxiety LABORATORY DATA: Please see below. ASSESSMENT/PLAN: Left hip osteoarthritis status post left hip arthroplasty on 09/05/2020 -Pain management, DVT prophylaxis and activity per orthopedic surgery -Acute rehabilitation unit screen anxiety/insomnia -On ramelteon On gabapentin at bedtime Dementia Continue Donepezil -Patient has not required any sitter so far. -Avoid oversedation, hypnotics. Hypertension Continue amlodipine DVT prophylaxis Per orthopedic surgery Disposition patient may be discharged to acute rehabilitation unit once a bed is available. VS, I&O, 24H, Fishbone Vital Signs/I&O Vital Signs Date Time Temp Pulse Resp B/P (MAP) Pulse Ox O2 Delivery O2 Flow Rate FiO2 09/07/20 09:34 96 146/69 09/07/20 09:34 16 09/07/20 06:00 98.3 95 Room Air 09/05/20 14:32 2 I&O- Last 24 Hours up to 6 AM 09/07/20 06:00 Intake Total 1680 ml Output Total 1500 ml Balance 180 ml Laboratory Data 24H LABS Laboratory Tests 2 09/07/20 06:07: Nucleated Red Blood Cells % (auto) 0.0, Anion Gap 4L, Glomerular Filtration Rate > 60.0, Calcium Level 8.2L, Total Bilirubin 1.0, Aspartate Amino Transf (AST/SGOT) 25, Alanine Aminotransferase (ALT/SGPT) 18, Alkaline Phosphatase 41L, Total Protein 6.0L, Albumin 3.1L, Albumin/Globulin Ratio 1.1 CBC/BMP Laboratory Tests 09/07/20 06:07 JAMES RICHARDSON MD Sep 07, 2020 11:51
== END 2020-09-07 14:00 | DRG 470 ==
LOC: M OR 08:24 → M MS5PR 15:00
PROVIDERS: ADMIT Orthopaedic Surgery; ATTEND Orthopaedic Surgery
PROC: 0SRB02Z Replacement of Left Hip Joint with Metal on Polyethylene Synthetic Substitute, Open Approach (ICD-10-PCS; principal; 2020-09-05 12:15)
DX: M16.12 Unilateral primary osteoarthritis, left hip (principal); I48.92 Unspecified atrial flutter; I10 Essential (primary) hypertension; E78.5 Hyperlipidemia, unspecified; F03.90 Unspecified dementia, unspecified severity, without behavioral disturbance, psychotic disturbance, mood disturbance, and anxiety; H40.9 Unspecified glaucoma; F41.0 Panic disorder [episodic paroxysmal anxiety]; G47.00 Insomnia, unspecified; N40.0 Benign prostatic hyperplasia without lower urinary tract symptoms; Z79.82 Long term (current) use of aspirin; Z79.899 Other long term (current) drug therapy; Z98.41 Cataract extraction status, right eye; Z98.42 Cataract extraction status, left eye

== ENCOUNTER 2020-09-07 09:34 | Inpatient (IN) | payer MEDICARE, BC, OTHER ==
[~2020-09-07] VITALS: Ht 193 cm; Wt 87.6 kg
[~2020-09-07 09:34] MED LIST changes: -ACETAMINOPHEN 500 MG TAB PO ONE; +ECOT81TA5 PO; -LR 1,000 ML IV ONE; +PERC5TAB12 PO; -ceFAZolin SOD 2 GM in IV 1 EA IV ONE
[2020-09-07 14:05] VITALS: BP 126/63
--- OUTSIDE RECORDS SUMMARY | 2020-09-07 15:27 | CCD | Continuity of Care Document ---
Author Author Silvestre GONZALES M.D. Organization Unknown Address [address] [place] [address] Phone [phone] Care Team Providers Care Director Of Reimbursement Name Role Phone Moira Gonzales MD [facility] [phone] Problems Active Problems Provider Date Essential hypertension Saúl Abdalla M.D. Onset: 08/2014 Degenerative joint disease involving multiple joints Saúl Abdalla M.D. Onset: 01/18/2011 Open-angle glaucoma Saúl Abdalla M.D. Onset: 2010 Raised prostate specific antigen Saúl Abdalla M.D. Onset: 01/18/2011 Mixed hyperlipidemia Saúl Abdalla M.D. Onset: 01/18 Essential hypertension Saúl Abdalla M.D. Onset: Social History Type Date Description Comments Sex Unknown Tobacco Use Start: Unknown End: Unknown denies cigarette use Tobacco Use Start: Unknown Never Used Smokeless Tobacco ETOH Use Occasionally consumes alcohol Tobacco Use Start: Unknown Patient has never smoked Recreational Drug Use Never Used Drugs Smoking Status Reviewed: 08/29/20 Patient has never smoked Exercise Type/Frequency Exercises regularly Sun Exposure Does not use sunscreen Seat Belt/Car Seat Always uses seat belt Smoke Alarms Yes Smoke Alarms Carbon Monoxide Detector: Yes Allergies, Adverse Reactions, Alerts Description No Known Drug Allergies Medications Active Medications SIG Qnty Indications Ordering Provide r Date Amlodipine Besylate 5mg Tablets take one tablet by mouth every day for blood pressure 90tabs I10 Moira Gonzales M.D. 06/09/2020 Donepezil HCL 5mg Tablets 1 by mouth every day 90tabs F03.90 Moira Gonzales M.D. 020 Gabapentin 300mg Capsules Take One Capsule By Mouth Every Evening For Sciatica Symptoms 90caps Sravan Moira israel M.D. 02/09/2016 Simvastatin 20mg Tablets take one tablet by mouth every day for cholesterol 90tabs E78.2 Dillan Gonzales M.D. 02/27/2011 Aspir-[address] 1 po qd otc Unknown [place]-3 And [place] 6 1000mg Capsules otc Unknown Prostate Plus Capsules daily OTC Unknown Multivitamins Tablets 1 daily each vitamin otc OTC Unknown 0 Latanoprost 0.005% Solution one drop in each eye daily Unknown Magnesium Oxide 400mg Capsules 1 cap by mouth every other morning Unknown Melatonin ER 3mg Tablets ER one at hs nightly Unknown Immunizations CPT Code Status Date Vaccine Lot # [id number] Given 05/18/2020 Influenza Virus Vaccine, Quadrivalent,age 3 and up,multidose vial [id number] Given 06/05/2019 Influenza Virus Vaccine, Quadrivalent,age 3 and up,multidose vial [id number] Given 06/05/2019 Influenza Virus Vaccine, Quadrivalent,age 3 and up,multidose vial [id number] 61735 Given 05/27/2018 Influenza Virus Vaccine, Quadrivalent,age 3 and up,multidose vial [id number] 40815 Given 05/31/2017 Prevnar 13 For Adults [id number] Q2038 Given 05/10/2017 Influenza Vaccine (Fluzone)( medicare) [id number] 84321 Given 06/21/2016 Zostavax Q2038 Given 05/08/2016 Influenza Vaccine (Fluzone)( medicare) [id number] Given 05/08/2016 Pneumococcal Vaccine [id number] Given 05/05/2015 Influenza Vaccine (Fluzone)( medicare) [id number] Vital Signs Date Vital Result Comment 08/29/2020 1:51pm BP Systolic 164 mmHg BP Diastolic 82 mmHg BP Systolic Recheck 155 mmHg BP Diastolic Recheck 70 mmHg Heart Rate 63 /min Body Temperature 96.8 F Respiratory Rate 15 /min Height 75 inches 6'3" Weight 194.38 lb O2 % BldC Oximetry 98 % [place] Body Weight 196 lb BMI (Body Mass Index) 24.3 kg/m2 06/09/2020 10:21am BP Systolic 129 mmHg BP Diastolic 55 mmHg Heart Rate 57 /min Body Temperature 97.1 F Respiratory Rate 16 /min Height 75 inches 6'3" Weight 194.38 lb O2 % BldC Oximetry 98 % [place] Body Weight 196 lb BMI (Body Mass Index) 24.3 kg/m2 Results Test Acquired Date Facility Test Result H/L Range Note Prothrombin Time/Inr 09/01/[address] [facility] [place], [place] [id number] [phone] Prothrombin Time 13.2 seconds Normal 12.5-14.3 Inr 0.98 Normal 1 CBC With Differential 08/29/2020 Patient Service [facility] [place], [place] [id number] [phone] White Blood Count 8.7 10 Normal 4.0-10.0 Red Blood Count 5.12 10 Normal 4.30-6.10 Hemoglobin 15.1 g/dL Normal 13.5-17.5 Hematocrit 45.5 % Normal 42.0-52.0 Mean Corpuscular Volume 88.9 fl Normal 80.0-96.0 Mean Corpuscular Hemoglobin 29.5 pg Normal 27.0-33.0 Mean Corpuscular HGB Conc 33.2 g/dL Normal 32.0-36.5 Red Cell Distribution Width 14.2 % Normal 11.5-14.5 Platelet Count, Automated 204 10 Normal 150-450 Neutrophils % 73.6 % High 36.0-66.0 Lymph % 15.3 % Low 24.0-44.0 [place] % 10.0 % High 0.0-5.0 Eos % 0.6 % Normal 0.0-3.0 Baso % 0.3 % Normal 0.0-1.0 Immature Granulocyte % 0.2 % Normal 0-3.0 Nucleated Red Blood Cell % 0.0 % Normal 0-0 Neutrophils # 6.4 10 Normal 1.5-8.5 Lymph # 1.3 10 Low 1.5-5.0 [place] # 0.9 10 High 0.0-0.8 Eos # 0.1 10 Normal 0.0-0.5 Baso # 0.0 10 Normal 0.0-0.2 Laboratory test finding 08/29/2020 Patient Service Center [facility] [place], [place] [id number] [phone] Erythrocyte Sedimentation Rate 7 mm/hr Normal 0 -20 Comprehensive Metabolic Profil 08/29/2020 [facility] [place], [place] [address] [phone] Glucose, Fasting 106 mg/dL High 70-100 Blood Urea Nitrogen 28 mg/dL High 7-18 Creatinine For GFR 1.10 mg/dL Normal 0.70-1.30 Glomerular Filtration Rate > 60.0 Normal >35 2 Sodium Level 141 mEq/L Normal 136-145 Potassium Serum 4.3 mEq/L Normal 3.5-5.1 Chloride Level 102 mEq/L Normal 98-107 Carbon Dioxide Level 32 mEq/L Normal 21-32 Anion Gap 7 mEq/L Low 8-16 Calcium Level 9.3 mg/dL Normal 8.8-10.2 Ast/Sgot 12 U/L Normal 7-37 Alt/SGPT 26 U/L Normal 12-78 Alkaline Phosphatase 53 U/L Normal 45-117 Bilirubin,Total 0.7 mg/dL Normal 0.2-1.0 Total Protein 7.4 GM/DL Normal 6.4-8.2 Albumin 4.0 GM/DL Normal 3.2-5.2 Albumin/Globulin Ratio 1.2 Normal Comprehensive Metabolic Profil 06/07/2020 [facility] [phone] Glucose, Fasting 99 mg/dL Normal 70-100 Blood Urea Nitrogen 21 mg/dL High 7-18 Creatinine For GFR 0.84 mg/dL Normal 0.70-1.30 Glomerular Filtration Rate > 60.0 Normal >35 3 Sodium Level 140 mEq/L Normal 136-145 Potassium Serum 4.5 mEq/L Normal 3.5-5.1 Chloride Level 105 mEq/L Normal 98-107 Carbon Dioxide Level 31 mEq/L Normal 21-32 Anion Gap 4 mEq/L Low 8-16 Calcium Level 8.5 mg/dL Low 8.8-10.2 Ast/Sgot 15 U/L Normal 7-37 Alt/SGPT 21 U/L Normal 12-78 Alkaline Phosphatase 46 U/L Normal 45-117 Bilirubin,Total 0.7 mg/dL Normal 0.2-1.0 Total Protein 7.0 GM/DL Normal 6.4-8.2 Albumin 3.9 GM/DL Normal 3.2-5.2 Albumin/Globulin Ratio 1.3 Normal Lipid Panel 06/07/2020 [facility] nter [phone] Triglycerides Level 103 mg/dL Normal <150 Cholesterol Level 159 mg/dL Normal <200 HDL Cholesterol 46 mg/dL Normal >40 LDL Cholesterol 92 mg/dL Normal <100 Non-HDL-C 113 mg/dL Normal Cholesterol Risk Ratio 3.456 Normal <5 CBC With Differential 06/07/2020 [facility] [phone] White Blood Count 4.8 10 Normal 4.0-10.0 Red Blood Count 4.95 10 Normal 4.30-6.10 Hemoglobin 14.2 g/dL Normal 13.5-17.5 Hematocrit 44.7 % Normal 42.0-52.0 Mean Corpuscular Volume 90.3 fl Normal 80.0-96.0 Mean Corpuscular Hemoglobin 28.7 pg Normal 27.0-33.0 Mean Corpuscular HGB Conc 31.8 g/dL Low 32.0-36.5 Red Cell Distribution Width 14.5 % Normal 11.5-14.5 Platelet Count, Automated 215 10 Normal 150-450 Neutrophils % 48.8 % Normal 36.0-66.0 Lymph % 35.7 % Normal 24.0-44.0 [place] % 11.2 % High 0.0-5.0 Eos % 3.1 % High 0.0-3.0 Baso % 1.2 % High 0.0-1.0 Immature Granulocyte % 0.0 % Normal 0-3.0 Nucleated Red Blood Cell % 0.0 % Normal 0-0 Neutrophils # 2.4 10 Normal 1.5-8.5 Lymph # 1.7 10 Normal 1.5-5.0 [place] # 0.5 10 Normal 0.0-0.8 Eos # 0.2 10 Normal 0.0-0.5 Baso # 0.1 10 Normal 0.0-0.2 1 THERAPUTIC HUMAN INR VALUES INDICATIONS NORMAL RANGES PROPHYLAXIS/TREATMENT OF: VENOUS THROMBOSIS 2.0-3.0 PULMONARY EMBOLISM 2.0-3.0 PREVENTION OF SYSTEMIC EMBOLISM FROM: TISSUE HEART VALVES 2.0-3.0 ACUTE MYOCARDIAL INFARCTION 2.0-3.0 VALVULAR HEART DISEASE 2.0-3.0 ATRIAL FIBRILLATION 2.0-3.0 MECHANICAL VALVES(HIGH RISK) 2.5-3.5 RECURRENT MYOCARDIAL INFARCTION 2.5-3.5 2 Units are mL/min/1.73 m2 Chronic Kidney Disease Staging per NKF: Stage I & II GFR >=60 Normal to Mildly Decreased Stage III GFR 30-59 Moderately Decreased Stage IV GFR 15-29 Severely Decreased Stage V GFR <15 Very Little GFR Left ESRD GFR <15 on CREDIT CONTROL ASSISTANT 3 Units are mL/min/1.73 m2 Chronic Kidney Disease Staging per NKF: Stage I & II GFR >=60 Normal to Mildly Decreased Stage III GFR 30-59 Moderately Decreased Stage IV GFR 15-29 Severely Decreased Stage V GFR <15 Very Little GFR Left ESRD GFR <15 on CREDIT CONTROL ASSISTANT Procedures Description No Information Available Medical Devices Description No Information Available Encounters Type Date Location Provider Dx Diagnosis Office Visit 08/29/2020 1:45p Main Office Mavis Gillespie PA Z01.818 Encounter for other preprocedural examination I10 Essential (primary) hyperten tom E78.2 Mixed hyperlipidemia F03.90 Unspecified dementia without behavioral disturbance M16.12 Unilateral primary osteoarth ritis, left hip Office Visit 06/09/2020 10:15a Main Office Mavis Gillespie PA Z00.00 Encntr for general adult medical exam w/o abnormal findings I10 Essential (primary) hyperten tom E78.2 Mixed hyperlipidemia F03.90 Unspecified dementia without behavioral disturbance Office Visit 04/06/2020 9:15a Main Office Mavis Gillespie PA G47.9 Sleep disorder, unspecified Assessments Date Code Description Provider 08/29/2020 Z01.818 Encounter for other preprocedura l examination Mavis Gillespie PA 08/29/2020 I10 Essential (primary) hypertension Mavis Gillespie PA 08/29/2020 E78.2 Mixed hyperlipidemia Mavis Gillespie PA 08/29/2020 F03.90 Unspecified dementia without beh avioral disturbance Mavis Gillespie PA 08/29/2020 M16.12 Unilateral primary osteoarthriti s, left hip Mavis Gillespie PA 06/09/2020 Z00.00 Encounter for genera l adult medical examination without abnormal findings Moira Gonzales M.D. 06/09/2020 Z00.00 Encounter for genera l adult medical examination without abnormal findings Mavis Gillespie PA 06/09/2020 I10 Essential (primary) hypertension Moira Gonzales M.D. 06/09/2020 I10 Essential (primary) hypertension Mavis Gillespie PA 06/09/2020 E78.2 Mixed hyperlipidemia Luis Alberto Gonzales M.D. 06/09/2020 E78.2 Mixed hyperlipidemia Mavis Gillespie PA 06/09/2020 F03.90 Unspecified dementia without beh avioral disturbance Moira Gonzales M.D. 06/09/2020 F03.90 Unspecified dementia without beh avioral disturbance Mavis Gillespie PA 05/18/2020 Z23 Encounter for immunization Mavis Schafer PA 04/06/2020 G47.9 Sleep disorder, unspecified Mavis Mckee PA Plan of Treatment Future Appointment(s):* 10/10/2020 10:45 am - Mavis Gillespie PA at Main Office 08/29/2020 - Mavis Gillespie PA* Z01.818 Encounter for other preprocedural examination* Comments:* 80 yo with history of dementia, hypertension and hyperlipidemiaEKG, chest xray and labs done [facility] acute cardiopulmonary symptomsInstructed to hold ASA and [place] 3 beginning todayIn overall good health and cleared to proceed with planned procedure * I10 Essential (primary) hypertension* Comments:* BP well controlled * E78.2 Mixed hyperlipidemia* Comments:* LDL at goal * F03.90 Unspecified dementia without behavioral disturbance* Comments:* continue donepezil * M16.12 Unilateral primary osteoarthritis, left hip Functional Status Functional Condition Comment Date Status Glasses Readers Active Independent with all ADL's Activ e Independent with all IADL's Acti ve Mental Status Mental Condition Comment Date Status None Active Referrals Description No Information Available
--- OUTSIDE RECORDS SUMMARY | 2020-09-07 15:28 | CCD | Continuity of Care Document ---
Author Author Silvestre [facility] Organization Unknown Address [address] [place] [address] Phone [phone] Care Team Providers Care Terrazzo Polisher Name Role Phone Moira Rhoades MD [facility] [phone] Problems Active Problems Provider Date Essential hypertension [...] day for blood pressure 90tabs I10 Moira Rhoades M.D. 06/09/2020 Donepezil HCL 5mg Tablets 1 by mouth every day 90tabs F03.90 Moira Rhoades M.D. 020 Gabapentin 300mg Capsules Take One Capsule By Mouth Every Evening For Sciatica Symptoms 90caps Sravan Moira israel M.D. 02/09/2016 Simvastatin 20mg Tablets take one tablet by mouth every day for cholesterol 90tabs E78.2 Dillan Rhoades M.D. 02/27/2011 Aspir-[address] 1 po qd otc Unknown [place]-3 And [place] 6 1000mg Capsules otc Unknown Prostate Plus Capsules daily OTC Unknown Multivitamins Tablets 1 daily each vitamin otc OTC Unknown 0 Latanoprost 0.005% Solution one drop in each eye daily Unknown Magnesium Oxide 400mg Capsules 1 cap by mouth every other morning Unknown Melatonin ER 3mg Tablets ER one at hs nightly Unknown Immunizations CPT Code Status Date Vaccine Lot # [id number] Given 05/18/2020 Influenza Virus Vaccine, Quadrivalent,age 3 and up,multidose vial [id number] 51612 Given 06/05/2019 Influenza Virus Vaccine, Quadrivalent,age 3 and up,multidose vial [id number] Given 06/05/2019 Influenza Virus Vaccine, Quadrivalent,age 3 and up,multidose vial [id number] 93363 Given 05/27/2018 Influenza Virus Vaccine, Quadrivalent,age 3 and up,multidose vial [id number] 51825 Given 05/31/2017 Prevnar 13 For Adults [id number] Q2038 Given 05/10/2017 Influenza Vaccine (Fluzone)( medicare) [id number] 18599 Given 06/21/2016 Zostavax Q2038 Given 05/08/2016 Influenza Vaccine (Fluzone)( medicare) [id number] 10196 Given 05/08/2016 Pneumococcal Vaccine [id number] Q2038 Given 05/05/2015 Influenza Vaccine (Fluzone)( medicare) [id number] Vital Signs Date Vital Result Comment 08/29/2020 1:51pm BP Systolic 164 mmHg BP Diastolic 82 mmHg BP Systolic Recheck 155 mmHg BP Diastolic Recheck 70 mmHg Heart Rate 63 /min Body Temperature 96.8 F Respiratory Rate 15 /min Height 75 inches 6'3" Weight 194.38 lb O2 % BldC Oximetry 98 % [place] Body Weight 196 lb BMI (Body Mass Index) 24.3 kg/m2 06/09/2020 10:21am BP Systolic 129 mmHg BP Diastolic 55 mmHg Heart Rate 57 /min Body Temperature 97.1 F Respiratory Rate 16 /min Height 75 inches 6'3" Weight 194.38 lb O2 % BldC Oximetry 98 % [place] Body Weight 196 lb BMI (Body Mass Index) 24.3 kg/m2 Results Test Acquired Date Facility Test Result H/L Range Note CBC With Differential 08/29/2020 [place] [address] [phone] White Blood Count 8.7 10 Normal 4.0-10.0 [...] 36.0-66.0 Lymph % 15.3 % Low 24.0-44.0 [place] % 10.0 % High 0.0-5.0 Eos % 0.6 % Normal 0.0-3.0 Baso % 0.3 % Normal 0.0-1.0 Immature Granulocyte % 0.2 % Normal 0-3.0 Nucleated Red Blood Cell % 0.0 % Normal 0-0 Neutrophils # 6.4 10 Normal 1.5-8.5 Lymph # 1.3 10 Low 1.5-5.0 [place] # 0.9 10 High 0.0-0.8 Eos # 0.1 10 Normal 0.0-0.5 Baso # 0.0 10 Normal 0.0-0.2 Laboratory test finding 08/29/2020 [place] [address] [phone] Erythrocyte Sedimentation Rate 7 mm/hr Normal 0 -20 Comprehensive Metabolic Profil 08/29/2020 Patient S [facility] [place] [address] [phone] Glucose, Fasting 106 mg/dL High 70-100 Blood Urea Nitrogen 28 mg/dL High 7-18 Creatinine For GFR 1.10 mg/dL Normal 0.70-1.30 Glomerular Filtration Rate > 60.0 Normal >35 1 Sodium Level 141 mEq/L Normal 136-145 Potassium [...] Ratio 1.2 Normal Comprehensive Metabolic Profil 06/07/2020 [facility] [phone] Glucose, Fasting 99 mg/dL Normal 70-100 Blood Urea Nitrogen 21 mg/dL High 7-18 Creatinine For GFR 0.84 mg/dL Normal 0.70-1.30 Glomerular Filtration Rate > 60.0 Normal >35 2 Sodium Level 140 mEq/L Normal 136-145 Potassium [...] Albumin/Globulin Ratio 1.3 Normal Lipid Panel 06/07/2020 [facility] nter [phone] Triglycerides Level 103 mg/dL Normal <150 Cholesterol Level 159 mg/dL Normal <200 HDL Cholesterol 46 mg/dL Normal >40 LDL Cholesterol 92 mg/dL Normal <100 Non-HDL-C 113 mg/dL Normal Cholesterol Risk Ratio 3.456 Normal <5 CBC With Differential 06/07/2020 [facility] [phone] White Blood Count 4.8 10 Normal 4.0-10.0 [...] 36.0-66.0 Lymph % 35.7 % Normal 24.0-44.0 [place] % 11.2 % High 0.0-5.0 Eos % 3.1 % High 0.0-3.0 Baso % 1.2 % High 0.0-1.0 Immature Granulocyte % 0.0 % Normal 0-3.0 Nucleated Red Blood Cell % 0.0 % Normal 0-0 Neutrophils # 2.4 10 Normal 1.5-8.5 Lymph # 1.7 10 Normal 1.5-5.0 [place] # 0.5 10 Normal 0.0-0.8 Eos # 0.2 10 Normal 0.0-0.5 Baso # 0.1 10 Normal 0.0-0.2 1 Units are mL/min/1.73 m2 Chronic Kidney Disease Staging per NKF: Stage I & II GFR >=60 Normal to Mildly Decreased Stage III GFR 30-59 Moderately Decreased Stage IV GFR 15-29 Severely Decreased Stage V GFR <15 Very Little GFR Left ESRD GFR <15 on SWIMMING INSTRUCTOR 2 Units are mL/min/1.73 m2 Chronic Kidney Disease Staging per NKF: Stage I & II GFR >=60 Normal to Mildly Decreased Stage III GFR 30-59 Moderately Decreased Stage IV GFR 15-29 Severely Decreased Stage V GFR <15 Very Little GFR Left ESRD GFR <15 on SWIMMING INSTRUCTOR Procedures Description No Information Available Medical Devices Description No Information Available Encounters Type Date Location Provider Dx Diagnosis Office Visit 08/29/2020 1:45p Main Office Mavis Olivera PA Z01.818 Encounter for other preprocedural examination I10 Essential (primary) hyperten tom E78.2 Mixed hyperlipidemia F03.90 Unspecified dementia without behavioral disturbance M16.12 Unilateral primary osteoarth ritis, left hip Office Visit 06/09/2020 10:15a Main Office Mavis Olivera PA Z00.00 Encntr for general adult medical exam w/o abnormal findings I10 Essential (primary) hyperten tom E78.2 Mixed hyperlipidemia F03.90 Unspecified dementia without behavioral disturbance Office Visit 04/06/2020 9:15a Main Office Mavis Olivera PA G47.9 Sleep disorder, unspecified Assessments Date Code Description Provider 08/29/2020 Z01.818 Encounter for other preprocedura l examination Mavis Olivera PA 08/29/2020 I10 Essential (primary) hypertension Mavis Olivera PA 08/29/2020 E78.2 Mixed hyperlipidemia Mavis Olivera PA 08/29/2020 F03.90 Unspecified dementia without beh avioral disturbance Mavis Olivera PA 08/29/2020 M16.12 Unilateral primary osteoarthriti s, left hip Mavis Olivera PA 06/09/2020 Z00.00 Encounter for genera l adult medical examination without abnormal findings Moira Rhoades M.D. 06/09/2020 Z00.00 Encounter for genera l adult medical examination without abnormal findings Mavis Olivera PA 06/09/2020 I10 Essential (primary) hypertension Moira Rhoades M.D. 06/09/2020 I10 Essential (primary) hypertension Mavis Olivera PA 06/09/2020 E78.2 Mixed hyperlipidemia Luis Alberto Rhoades M.D. 06/09/2020 E78.2 Mixed hyperlipidemia Mavis Olivera PA 06/09/2020 F03.90 Unspecified dementia without beh avioral disturbance Moira Rhoades M.D. 06/09/2020 F03.90 Unspecified dementia without beh avioral disturbance Mavis Olivera PA 05/18/2020 Z23 Encounter for immunization Mavis Schafer PA 04/06/2020 G47.9 Sleep disorder, unspecified Mavis Mckee PA Plan of Treatment Future Appointment(s):* 10/10/2020 10:45 am - Mavis Olivera PA at Main Office 08/29/2020 - Mavis Olivera PA* Z01.818 Encounter for other preprocedural examination* Comments:* 80 yo with history of dementia, hypertension and hyperlipidemiaEKG, chest xray and labs done through [facility] acute cardiopulmonary symptomsInstructed to hold ASA and [place] 3 beginning todayIn overall good health and [...]
--- OUTSIDE RECORDS SUMMARY | 2020-09-07 15:28 | CCD | Continuity of Care Document ---
Author Author Silvestre ELLIOTT MD Organization Unknown Address [address] [place] [address], [facility] [address] [place] [address] Phone [phone] Care Team Providers Care Manager Ob Name Role Phone BjornMelody milligancaryl LOPEZ AUTM [phone] Problems Description No Information Available Social History Type Date Description Comments Sex Unknown ETOH Use Occasionally consumes alcohol Tobacco Use Start: Unknown Denies Smoking Allergies, Adverse Reactions, Alerts Description No Known Drug Allergies Medications Active Medications SIG Qnty Indications Ordering Provide r Date Amlodipine Besylate Tablets 1 by mouth every day Unknown Simvastatin Tablets 1 by mouth every at bedtime Unknown Aspirin Adult Low Dose 81mg Tablets DR Unknown Multivitamins 1 by mouth every day Unknown 0 Chlorhexidine Gluconate 0.12% Solution Unknown Gabapentin 300mg Capsules 1 tab po qhs for one week, then one tab po bid for one week then one tab po tid Unknown Latanoprost 0.005% Solution 1 drop both eyes every night at bedtime Unknown Magnesium Oxide 250mg Tablets Unknown [place] 3 1000mg Capsules 1 by mouth every day Unknown Suppository Blend Pellet Unknown Prostate Capsules Unknown Immunizations Description No Information Available Vital Signs Date Vital Result Comment 07/20/2020 2:05pm Body Temperature 96.2 F Height 75 inches 6'3" Weight 196.50 lb BMI (Body Mass Index) 24.6 kg/m2 04/01/2020 9:30am Body Temperature 96.6 F Height 75 inches 6'3" Weight 190.50 lb BMI (Body Mass Index) 23.8 kg/m2 Results Test Acquired Date Facility Test Result H/L Range Note Order 07/21/2020 [facility] nter Surgery <pending> Procedures Description No Information Available Medical Devices Description No Information Available Encounters Type Date Location Provider Dx Diagnosis Office Visit 07/20/2020 2:00p Ren Elliott MD M1 6.12 Unilateral primary osteoarthritis, left hip Assessments Date Code Description Provider 07/20/2020 M16.12 Unilateral primary osteoarthriti s, left hip Paras Elliott MD 04/01/2020 M16.12 Unilateral primary osteoarthriti s, left hip DKenya Elliott MD Plan of Treatment 07/20/2020 - Paras Elliott MD* M16.12 Unilateral primary osteoarthritis, left hip* Follow up:* post op Functional Status Description No Information Available Mental Status Description No Information Available Referrals Refer to Reason for Referral Status Appt Date Kelvin Herbert PA-C SURGERY NO AUTH REQUIRED FOR TOTAL LEFT HIP([id number]) TO SURGERY NT Created [address] [place] [address] [phone] Kelvin Herbert PA-C SURGERY NO AUTH REQUIRED FOR LEFT TOTAL HIP([id number]) TO SURGERY NT Created [address] [place] [address] [phone]
--- OUTSIDE RECORDS SUMMARY | 2020-09-07 15:28 | CCD | Continuity of Care Document ---
Author Author Silvestre ELLIOTT MD Organization Unknown Address [address] [place] [address], [address] [place] [address] Phone [phone] Care Team Providers Care Skin Toggler Name Role Phone Melody Oakley JESSICA AUTM Problems Description No Information Available Social History Type Date Description Comments Sex Unknown ETOH Use Occasionally consumes alcohol Tobacco Use Start: Unknown Denies Smoking Allergies, Adverse Reactions, Alerts Description No Known Drug Allergies Medications Active Medications SIG Qnty Indications Ordering Provide r Date Hibiclens 4% Liquid use in shower once daily for 5 days before surgery 1units Paras powers MD 08/29/2020 Mupirocin 2% Ointment apply a pea sized amount to the nasal passages 3 times a day for 5 days prior to surgery 22gm Paras Elliott MD 08/29/2020 Amlodipine Besylate Tablets 1 by mouth every [...] bedtime Unknown Magnesium Oxide 250mg Tablets Unknown Emily 3 1000mg Capsules 1 by mouth every [...] H/L Range Note CBC With Differential 08/29/2020 [facility] [address] [place] [address] (315)- - White Blood Count 8.7 10 Normal 4.0-10.0 [...] 36.0-66.0 Lymph % 15.3 % Low 24.0-44.0 [place] % 10.0 % High 0.0-5.0 Eos % 0.6 % Normal 0.0-3.0 Baso % 0.3 % Normal 0.0-1.0 Immature Granulocyte % 0.2 % Normal 0-3.0 Nucleated Red Blood Cell % 0.0 % Normal 0-0 Neutrophils # 6.4 10 Normal 1.5-8.5 Lymph # 1.3 10 Low 1.5-5.0 [place] # 0.9 10 High 0.0-0.8 Eos # 0.1 10 Normal 0.0-0.5 Baso # 0.0 10 Normal 0.0-0.2 Laboratory test finding 08/29/2020 [facility] [address] [place] [address] (315)- - Erythrocyte Sedimentation Rate 7 mm/hr Normal 0-20 Comprehensive Metabolic Profil 08/29/2020 [facility] [address] [place] [address] (315)- - Glucose, Fasting 106 mg/dL High 70-100 Blood [...] GM/DL Normal 3.2-5.2 Albumin/Globulin Ratio 1.2 Normal Laboratory test finding 08/26/2020 [facility] [address] [place] [address] (315)- - Erythrocyte Sedimentation Rate <pending> Xray 08/26/2020 [facility] nter (315)- - Chest x-ray <pending> Order 08/26/2020 [facility] nter EKG <pending> Order 07/21/2020 [facility] nt Surgery <pending> 1 Units are mL/min/1.73 m2 Chronic Kidney Disease Staging per NKF: Stage I & II GFR >=60 Normal to Mildly Decreased Stage III GFR 30-59 Moderately Decreased Stage IV GFR 15-29 Severely Decreased Stage V GFR <15 Very Little GFR Left ESRD GFR <15 on ART MANAGER Procedures Description No Information Available Medical Devices Description No Information Available Encounters Type Date Location Provider Dx Diagnosis Office Visit 07/20/2020 2:00p Ren Elliott MD M1 6.12 Unilateral primary osteoarthritis, left hip Assessments Date Code Description Provider 07/20/2020 M16.12 Unilateral primary osteoarthriti s, left hip Paras Elliott MD 04/01/2020 M16.12 Unilateral primary osteoarthriti s, left hip Paras Elliott MD Plan of Treatment Future Appointment(s):* 09/05/2020 10:15 am - Moira Mojica PA-C at Surgery [facility] Inpatient * 09/05/2020 10:15 am - Paras Elliott MD at Surgery [facility] Inpatient 07/20/2020 - Paras Elliott MD* M16.12 Unilateral primary osteoarthritis, left hip* Follow up:* post op Functional Status Description No Information Available Mental Status Description No Information Available Referrals Refer to Dr Reason for Referral Status Appt Date Kelvin Herbert PA-C SURGERY NO AUTH REQUIRED FOR TOTAL LEFT HIP([id number]) TO SURGERY NT Created [address] [place], [place] [id number] [phone] Kelvin Herbert PA-C SURGERY NO AUTH REQUIRED FOR LEFT TOTAL HIP([id number]) TO SURGERY NT Created [address] [place] [address] [phone]
--- OUTSIDE RECORDS SUMMARY | 2020-09-07 15:28 | CCD | Continuity of Care Document ---
Author Author Silvestre [facility] Organization Unknown Address [address] [place] [address] Phone [phone] Care Team Providers Care Qi Specialist Name Role Phone Moira Rhoades MD [facility] [phone] Problems Active Problems Provider Date Essential hypertension [...] Use Never Used Drugs Smoking Status Reviewed: 04/06/20 Patient has never smoked Exercise Type/Frequency Exercises [...] Symptoms 90caps Sravan Moira israel M.D. 02/09/2016 Fluocinonide 0.05% Solution apply to scalp lesions daily for 2 weeks then as needed 60units 690.11 Saúl Abdalla M.D. 03/07/2015 Simvastatin 20mg Tablets take one tablet by mouth every day for cholesterol 90tabs E78.2 Dillan Rhoades M.D. 02/27/[address]ir-[address] 1 po qd otc Unknown Linden-3 And Linden 6 1000mg Capsules otc Unknown Prostate Plus Capsules daily OTC Unknown Glucosamine Complex Tablets daily otc Unknown Multivitamins Tablets 1 daily each vitamin otc OTC Unknown 0 Latanoprost 0.005% Solution one drop in each eye daily Unknown Magnesium Oxide 400mg Capsules 1 cap by mouth every morning Unknown Melatonin ER 3mg Tablets ER one at hs nightly Unknown Immunizations CPT Code Status Date Vaccine Lot # [id number] Given 05/18/2020 Influenza Virus Vaccine, Quadrivalent,age 3 and up,multidose vial [id number] Given 06/05/2019 Influenza Virus Vaccine, Quadrivalent,age 3 and up,multidose vial [id number] Given 06/05/2019 Influenza Virus Vaccine, Quadrivalent,age 3 and up,multidose vial [id number] 24435 Given 05/27/2018 Influenza Virus Vaccine, Quadrivalent,age 3 and up,multidose vial [id number] 18638 Given 05/31/2017 Prevnar 13 For Adults [id number] Given 05/10/2017 Influenza Vaccine (Fluzone)( medicare) [id number] 18794 Given 06/21/2016 Zostavax [id number] Given 05/08/2016 Influenza Vaccine (Fluzone)( medicare) [id number] 03319 Given 05/08/2016 Pneumococcal Vaccine [id number] Given 05/05/2015 Influenza Vaccine (Fluzone)( medicare) [id number] Vital Signs Date Vital Result Comment 06/09/2020 10:21am BP Systolic 129 mmHg BP Diastolic 55 mmHg Heart Rate 57 /min Body Temperature 97.1 F Respiratory Rate 16 /min Height 75 inches 6'3" Weight 194.38 lb O2 % BldC Oximetry 98 % [place] Body Weight 196 lb BMI (Body Mass Index) 24.3 kg/m2 05/18/2020 11:04am Body Temperature 97.7 F Results Test Acquired Date Facility Test Result H/L Range Note Comprehensive Metabolic Profil 06/07/2020 [facility] [phone] Glucose, Fasting 99 mg/dL Normal 70-100 Blood Urea Nitrogen 21 mg/dL High 7-18 Creatinine For GFR 0.84 mg/dL Normal 0.70-1.30 Glomerular Filtration Rate > 60.0 Normal >35 1 Sodium Level 140 mEq/L Normal 136-145 Potassium [...] Albumin/Globulin Ratio 1.3 Normal Lipid Panel 06/07/2020 [facility] nter [phone] Triglycerides Level 103 mg/dL Normal <150 Cholesterol Level 159 mg/dL Normal <200 HDL Cholesterol 46 mg/dL Normal >40 LDL Cholesterol 92 mg/dL Normal <100 Non-HDL-C 113 mg/dL Normal Cholesterol Risk Ratio 3.456 Normal <5 CBC With Differential 06/07/2020 [facility] [phone] White Blood Count 4.8 10 Normal 4.0-10.0 [...] 36.0-66.0 Lymph % 35.7 % Normal 24.0-44.0 [place] % 11.2 % High 0.0-5.0 Eos % 3.1 % High 0.0-3.0 Baso % 1.2 % High 0.0-1.0 Immature Granulocyte % 0.0 % Normal 0-3.0 Nucleated Red Blood Cell % 0.0 % Normal 0-0 Neutrophils # 2.4 10 Normal 1.5-8.5 Lymph # 1.7 10 Normal 1.5-5.0 [place] # 0.5 10 Normal 0.0-0.8 Eos # 0.2 10 Normal 0.0-0.5 Baso # 0.1 10 Normal 0.0-0.2 Comprehensive Metabolic Profil 01/29/2020 [facility] [phone] Glucose, Fasting 115 mg/dL High 70-100 Blood Urea Nitrogen 26 mg/dL High 7-18 Creatinine For GFR 0.88 mg/dL Normal 0.70-1.30 Glomerular Filtration Rate > 60.0 Normal >35 2 Sodium Level 139 mEq/L Normal 136-145 Potassium Serum 4.1 mEq/L Normal 3.5-5.1 Chloride Level 106 mEq/L Normal 98-107 Carbon Dioxide Level 28 mEq/L Normal 21-32 Anion Gap 5 mEq/L Low 8-16 Calcium Level 8.7 mg/dL Low 8.8-10.2 Ast/Sgot 18 U/L Normal 7-37 Alt/SGPT 23 U/L Normal 12-78 Alkaline Phosphatase 47 U/L Normal 45-117 Bilirubin,Total 0.6 mg/dL Normal 0.2-1.0 Total Protein 7.1 GM/DL Normal 6.4-8.2 Albumin 3.7 GM/DL Normal 3.2-5.2 Albumin/Globulin Ratio 1.1 Normal Laboratory test finding 01/29/2020 [facility] [phone] Thyroid Stimulating Hormone 1.180 uIU/ML Normal 0. 358-3.740 CBC With Differential 01/29/2020 [facility] [phone] White Blood Count 5.1 10 Normal 4.0-10.0 Red Blood Count 4.74 10 Normal 4.30-6.10 Hemoglobin 13.3 g/dL Low 13.5-17.5 Hematocrit 42.0 % Normal 42.0-52.0 Mean Corpuscular Volume 88.6 fl Normal 80.0-96.0 Mean Corpuscular Hemoglobin 28.1 pg Normal 27.0-33.0 Mean Corpuscular HGB Conc 31.7 g/dL Low 32.0-36.5 Red Cell Distribution Width 14.6 % High 11.5-14.5 Platelet Count, Automated 223 10 Normal 150-450 Neutrophils % 61.0 % Normal 36.0-66.0 Lymph % 27.0 % Normal 24.0-44.0 Grainger % 10.0 % High 0.0-5.0 Eos % 1.0 % Normal 0.0-3.0 Baso % 0.6 % Normal 0.0-1.0 Immature Granulocyte % 0.4 % Normal 0-3.0 Nucleated Red Blood Cell % 0.0 % Normal 0-0 Neutrophils # 3.1 10 Normal 1.5-8.5 Lymph # 1.4 10 Low 1.5-5.0 Grainger # 0.5 10 Normal 0.0-0.8 Eos # 0.1 10 Normal 0.0-0.5 Baso # 0.0 10 Normal 0.0-0.2 1 Units are mL/min/1.73 m2 Chronic Kidney Disease Staging per NKF: Stage I & II GFR >=60 Normal to Mildly Decreased Stage III GFR 30-59 Moderately Decreased Stage IV GFR 15-29 Severely Decreased Stage V GFR <15 Very Little GFR Left ESRD GFR <15 on INSPECTOR [employer] 2 Units are mL/min/1.73 m2 Chronic Kidney Disease Staging per NKF: Stage I & II GFR >=60 Normal to Mildly Decreased Stage III GFR 30-59 Moderately Decreased Stage IV GFR 15-29 Severely Decreased Stage V GFR <15 Very Little GFR Left ESRD GFR <15 on INSPECTOR [employer] Procedures Description No Information Available Medical Devices Description No Information Available Encounters Type Date Location Provider Dx Diagnosis Office Visit 06/09/2020 10:15a Main Office Mavis Olivera PA Z00.00 Encntr for general adult medical exam w/o abnormal findings I10 Essential (primary) hyperten tom E78.2 Mixed hyperlipidemia F03.90 Unspecified dementia without behavioral disturbance Office Visit 04/06/2020 9:15a Main Office Mavis Olivera PA G47.9 Sleep disorder, unspecified Office Visit 01/28/2020 11:40a Main Office Melody Oakley PA-C R53.8 3 Other fatigue M25.552 Pain in left hip K40.30 Unil inguinal hernia, w obst , w/o gangr, not spcf as recur Office Visit 12/30/2019 2:30p Main Office Lani Borges FNP R23.3 Spontaneous ecchymoses Assessments Date Code Description Provider 06/09/2020 Z00.00 Encounter for genera l adult [...] Olivera PA 05/18/2020 Z23 Encounter for immunization Olivia ncostMavis abdi PA 04/06/2020 G47.9 Sleep disorder, unspecified [place] ancMavis rudd PA 01/28/2020 R53.83 Other fatigue Melody Oakley PA-C 01/28/2020 M25.552 Pain in left hip Melody Oakley PA-C 01/28/2020 K40.30 Unilateral inguinal hernia, with obstruction, without gangrene, not specified as recurrent Melody Oakley PA-C 12/30/2019 R23.3 Spontaneous ecchymoses Lani Borges FNP Plan of Treatment Future Appointment(s):* 10/10/2020 10:45 am - Mavis Olivera PA at Main Office Functional Status Functional Condition Comment Date Status Glasses Readers Active Independent with all ADL's Activ e Independent with all IADL's Acti ve Mental Status Mental Condition Comment Date Status None Active Referrals Description No Information Available
--- OUTSIDE RECORDS SUMMARY | 2020-09-07 15:28 | CCD | Continuity of Care Document ---
Author Author Silvestre ELLIOTT MD Organization Unknown Address [address] [place] [address], [facility] [address] [place] [address] Phone [phone] Care Team Providers Care Public Transit Trolley Driver Name Role Phone BjornMelody milligancaryl LOPEZ AUTM [phone] Problems Description No Information Available Social [...] bedtime Unknown Magnesium Oxide 250mg Tablets Unknown [place] 3 1000mg Capsules 1 by mouth every [...] BMI (Body Mass Index) 23.8 kg/m2 Results Description No Information Available Procedures Description No Information Available Medical Devices Description No Information Available Encounters Type Date Location Provider Dx Diagnosis Office Visit 2020 2:15p Ren Herbert PA-C M1 6.12 Unilateral primary osteoarthritis, left hip Assessments Date Code Description Provider 07/20/2020 M16.12 Unilateral primary osteoarthriti s, left hip Paras Elliott MD 04/01/2020 M16.12 Unilateral primary osteoarthriti s, left hip Paras Elliott MD 2020 M16.12 Unilateral primary osteoarthriti s, left hip Kelvin Herbert PA-C Plan of Treatment 07/20/2020 - Parsa Elliott MD* M16.12 Unilateral primary osteoarthritis, left hip* New Orders:* Surgery, Ordered: 07/20/20 * Follow up:* post op Functional Status Description No Information Available Mental Status Description No Information Available Referrals Description No Information Available
--- OUTSIDE RECORDS SUMMARY | 2020-09-07 15:28 | CCD | Continuity of Care Document ---
Author Author Silvestre PATTERSON P.A. Organization Unknown Address [address] [place] [address], [address] [address] Phone [phone] Care Team Providers Care Wharfmaster Name Role Phone BjornMelody milligan JESSICA AUTM [phone] Problems Description No Information Available Social [...] bedtime Unknown Magnesium Oxide 250mg Tablets Unknown [place] 3 1000mg Capsules 1 by mouth every day Unknown Suppository Blend Pellet Unknown Prostate Capsules Unknown Immunizations Description No Information Available Vital Signs Date Vital Result Comment 09/01/2020 12:51pm BP Systolic 112 mmHg BP Diastolic 74 mmHg Heart Rate 76 /min Body Temperature 97.1 F Height 75.5 inches 6'3.50" Weight 193.25 lb BMI (Body Mass Index) 23.8 kg/m2 Respiratory Rate 12 /min 07/20/2020 2:05pm Body Temperature 96.2 F Height 75 inches 6'3" Weight 196.50 lb BMI (Body Mass Index) 24.6 kg/m2 Results Test Acquired Date Facility Test Result H/L Range Note Prothrombin Time/Inr 09/01/2020 [facility] entr [address] [place] [address] (315)- - Prothrombin Time 13.2 seconds Normal 12.5-14.3 Inr 0.98 Normal 1 CBC With Differential 08/29/2020 [facility] [id number] [place] [address] (315)- - White Blood Count 8.7 10 [...] 36.0-66.0 Lymph % 15.3 % Low 24.0-44.0 [place] % 10.0 % High 0.0-5.0 Eos % 0.6 % Normal 0.0-3.0 Baso % 0.3 % Normal 0.0-1.0 Immature Granulocyte % 0.2 % Normal 0-3.0 Nucleated Red Blood Cell % 0.0 % Normal 0-0 Neutrophils # 6.4 10 Normal 1.5-8.5 Lymph # 1.3 10 Low 1.5-5.0 [place] # 0.9 10 High 0.0-0.8 Eos # 0.1 10 Normal 0.0-0.5 Baso # 0.0 10 Normal 0.0-0.2 Laboratory test finding 08/29/2020 [facility] [address] [place] [address] (315)- - Erythrocyte Sedimentation Rate 7 mm/hr Normal 0-20 Comprehensive Metabolic Profil 08/29/2020 [facility] [id number] [place] [address] (315)- - Glucose, Fasting 106 mg/dL High [...] Ratio 1.2 Normal Laboratory test finding 08/26/2020 [facility] [address] [place] [address] (315)- - Erythrocyte Sedimentation Rate <pending> Xray 08/26/2020 [facility] nter (315)- - Chest x-ray <pending> Order 08/26/2020 [facility] nter EKG <pending> 1 THERAPUTIC HUMAN INR VALUES INDICATIONS NORMAL [...] Little GFR Left ESRD GFR <15 on TELEVISION TUBE INSPECTOR Procedures Description No Information Available Medical Devices Description No Information Available Encounters Type Date Location Provider Dx Diagnosis Office Visit 09/01/2020 12:45p [place] Jhonny Patterson PKenyaAKenya Z01.818 Encounter for other preprocedural examination M16.12 Unilateral primary osteoarth ritis, left hip Office Visit 07/20/2020 2:00p [place] Paras Elliott MD M1 6.12 Unilateral primary osteoarthritis, left hip Assessments Date Code Description Provider 09/01/2020 Z01.818 Encounter for other preprocedura l examination Kevin Mariscal 09/01/2020 M16.12 Unilateral primary osteoarthriti s, left hip Kevin Mariscal 07/20/2020 M16.12 Unilateral primary osteoarthriti s, left hip Paras Elliott MD 04/01/2020 M16.12 Unilateral primary osteoarthriti s, left hip DKenya Elliott MD Plan of Treatment Future Appointment(s):* 09/20/2020 3:30 pm - Kelvin Herbert PA-C at [place] * 09/05/2020 10:15 am - Moira Mojica PA-C at Surgery [facility] Inpatient * 09/05/2020 10:15 am - Paras Elliott MD at Surgery [facility] Inpatient 07/20/2020 - Paras Elliott MD* M16.12 Unilateral primary osteoarthritis, left hip* Follow up:* post op Functional Status Description No Information Available Mental Status Description No Information Available Referrals Refer to Dr Reason for Referral Status Appt Date Kelvin Herebrt PA-C SURGERY NO AUTH REQUIRED FOR TOTAL LEFT HIP([id number]) TO SURGERY NT Created [address] [place] [address] [address] [place] [address] [phone] Kelvin Herbert PA-C SURGERY NO AUTH REQUIRED FOR LEFT TOTAL HIP([id number]) TO SURGERY NT Created [address] [place] [address] [address] [place] [address] [phone]
--- OUTSIDE RECORDS SUMMARY | 2020-09-07 15:29 | CCD ---
Author Author [facility] Organization [facility] Address Unknown Phone Unavailable Care Team Providers Care Digital Communications Manager Name Role Phone Scordo, M Melody PA Unavailable Unavailable Scordo, M Melody PA Unavailable Unavailable Scordo, M Melody PA Unavailable Unavailable Scordo, M Melody PA Unavailable Unavailable Scordo, M Melody PA Unavailable Unavailable Scordo, M Melody PA Unavailable Unavailable Scordo, M Melody PA Unavailable Unavailable Scordo, M Melody PA Unavailable Unavailable Scordo, M Melody PA Unavailable Unavailable Scordo, M Melody PA Unavailable Unavailable Scordo, M Melody PA Unavailable Unavailable Scordo, M Melody PA Unavailable Unavailable Scordo, M Melody PA Unavailable Unavailable Scordo, M Melody PA Unavailable Unavailable Scordo, M Melody PA Unavailable Unavailable Scordo, M Melody PA Unavailable Unavailable Scordo, M Melody PA Unavailable Unavailable Scordo, M Melody PA Unavailable Unavailable Scordo, M Melody PA Unavailable Unavailable Scordo, M Melody PA Unavailable Unavailable Scordo, M Melody PA Unavailable Unavailable Scordo, M Melody PA Unavailable Unavailable Scordo, M Melody PA Unavailable Unavailable Scordo, M Melody PA Unavailable Unavailable Scordo, M Melody PA Unavailable Unavailable Scordo, M Melody PA Unavailable Unavailable Scordo, M Melody PA Unavailable Unavailable Scordo, M Melody PA Unavailable Unavailable Scordo, M Melody PA Unavailable Unavailable Scordo, M Melody PA Unavailable Unavailable Scordo, M Melody PA Unavailable Unavailable Scordo, M Melody PA Unavailable Unavailable Scordo, M Melody PA Unavailable Unavailable Scordo, M Melody PA Unavailable Unavailable Scordo, M Melody PA Unavailable Unavailable Scordo, M Melody PA Unavailable Unavailable Scordo, M Melody PA Unavailable Unavailable Scordo, M Melody PA Unavailable Unavailable Scordo, M Melody PA Unavailable Unavailable Scordo, M Melody PA Unavailable Unavailable Scordo, M Melody PA Unavailable Unavailable Scordo, M Melody PA Unavailable Unavailable MCELHERAN, JUSTINA PA Unavailable Unavailable MCELHERAN, JUSTINA PA Unavailable Unavailable MCELHERAN, JUSTINA PA Unavailable Unavailable MCELHERAN, JUSTINA PA Unavailable Unavailable MCELHERAN, JUSTINA PA Unavailable Unavailable MCELHERAN, JUSTINA PA Unavailable Unavailable MCELHERAN, JUSTINA PA Unavailable Unavailable MCELHERAN, JUSTINA PA Unavailable Unavailable MCELHERAN, JUSTINA PA Unavailable Unavailable MCELHERANTONIO, JUSTINA PA Unavailable Unavailable MCELHERANTONIO, JUSTINA PA Unavailable Unavailable MCELHERAN, JUSTINA PA Unavailable Unavailable MCELHERAN, JUSTINA PA Unavailable Unavailable MCELHERAN, JUSTINA PA Unavailable Unavailable MCELHERAN, JUSTINA PA Unavailable Unavailable MCELHERAN, JUSTINA PA Unavailable Unavailable MCELHERAN, JUSTINA PA Unavailable Unavailable MCELHERAN, JUSTINA PA Unavailable Unavailable MCELHERAN, JUSTINA PA Unavailable Unavailable MCELHERAN, JUSTINA PA Unavailable Unavailable MCELHERAN, JUSTINA PA Unavailable Unavailable MCELHERAN, JUSTINA PA Unavailable Unavailable MCELHERAN, JUSTINA PA Unavailable Unavailable MCELHERAN, JUSTINA PA Unavailable Unavailable MCELHERAN, JUSTINA PA Unavailable Unavailable MCELHERAN, JUSTINA PA Unavailable Unavailable MCELHERAN, JUSTINA PA Unavailable Unavailable MCELHERAN, JUSTINA PA Unavailable Unavailable Pleskach, Lani MANAGER DISTRIBUTION Unavailable Unavailable Pleskach, Lani MANAGER DISTRIBUTION Unavailable Unavailable Pleskach, Lani MANAGER DISTRIBUTION Unavailable Unavailable Pleskach, Lani MANAGER DISTRIBUTION Unavailable Unavailable Pleskach, Lani MANAGER DISTRIBUTION Unavailable Unavailable Pleskach, Lani MANAGER DISTRIBUTION Unavailable Unavailable Pleskach, Lani MANAGER DISTRIBUTION Unavailable Unavailable Pleskach, Lani MANAGER DISTRIBUTION Unavailable Unavailable Pleskach, Lani MANAGER DISTRIBUTION Unavailable Unavailable Pleskach, Lani MANAGER DISTRIBUTION Unavailable Unavailable Pleskach, Lani MANAGER DISTRIBUTION Unavailable Unavailable Pleskach, Lani MANAGER DISTRIBUTION Unavailable Unavailable Pleskach, Lani MANAGER DISTRIBUTION Unavailable Unavailable Pleskach, Lani MANAGER DISTRIBUTION Unavailable Unavailable Pleskach, Lani MANAGER DISTRIBUTION Unavailable Unavailable Pleskach, Lani MANAGER DISTRIBUTION Unavailable Unavailable Pleskach, Lani MANAGER DISTRIBUTION Unavailable Unavailable Pleskach, Lani MANAGER DISTRIBUTION Unavailable Unavailable Pleskach, Lani MANAGER DISTRIBUTION Unavailable Unavailable Pleskach, Lani MANAGER DISTRIBUTION Unavailable Unavailable Pleskach, Lani MANAGER DISTRIBUTION Unavailable Unavailable Pleskach, Lani MANAGER DISTRIBUTION Unavailable Unavailable Pleskach, Lani MANAGER DISTRIBUTION Unavailable Unavailable Pleskach, Lani MANAGER DISTRIBUTION Unavailable Unavailable Pleskach, Lani MANAGER DISTRIBUTION Unavailable Unavailable Pleskach, Lani MANAGER DISTRIBUTION Unavailable Unavailable Pleskach, Lani MANAGER DISTRIBUTION Unavailable Unavailable Pleskach, Lani MANAGER DISTRIBUTION Unavailable Unavailable Pleskach, Lani MANAGER DISTRIBUTION Unavailable Unavailable Herbert, M Barratt PA Unavailable Unavailable Herbert, M Barratt PA Unavailable Unavailable Herbert, M Barratt PA Unavailable Unavailable Herbert, M Barratt PA Unavailable Unavailable Herbert, M Barratt PA Unavailable Unavailable Herbert, M Barratt PA Unavailable Unavailable Herbert, M Barratt PA Unavailable Unavailable Herbert, M Barratt PA Unavailable Unavailable Herbert, M Barratt PA Unavailable Unavailable Herbert, M Barratt PA Unavailable Unavailable Herbert, M Barratt PA Unavailable Unavailable Herbert, M Barratt PA Unavailable Unavailable Herbert, M Barratt PA Unavailable Unavailable Herbert, M Barratt PA Unavailable Unavailable Herbert, M Barratt PA Unavailable Unavailable Herbert, M Barratt PA Unavailable Unavailable Herbert, M Barratt PA Unavailable Unavailable Herbert, M Barratt PA Unavailable Unavailable Herbert, M Barratt PA Unavailable Unavailable Herbert, M Barratt PA Unavailable Unavailable Herbert, M Barratt PA Unavailable Unavailable Herbert, M Barratt PA Unavailable Unavailable Herbert, M Barratt PA Unavailable Unavailable Herbert, M Barratt PA Unavailable Unavailable Herbert, M Barratt PA Unavailable Unavailable Herbert, M Barratt PA Unavailable Unavailable Herbert, M Barratt PA Unavailable Unavailable Herbert, M Barratt PA Unavailable Unavailable Herbert, M Barratt PA Unavailable Unavailable Herbert, M Barratt PA Unavailable Unavailable Herbert, M Barratt PA Unavailable Unavailable Herbert, M Barratt PA Unavailable Unavailable Herbert, M Barratt PA Unavailable Unavailable Herbert, M Barratt PA Unavailable Unavailable Herbert, M Barratt PA Unavailable Unavailable Herbert, M Barratt PA Unavailable Unavailable Kd Herbertatt PA Unavailable Unavailable Herbert, M Barratt PA Unavailable Unavailable Herbert, M Barratt PA Unavailable Unavailable Herbert, M Barratt PA Unavailable Unavailable Herbert, M Barratt PA Unavailable Unavailable Herbert, M Barratt PA Unavailable Unavailable Herbert, M Barratt PA Unavailable Unavailable Herbert, M Barratt PA Unavailable Unavailable Herbert, M Barratt PA Unavailable Unavailable Herbert, M Barratt PA Unavailable Unavailable Herbert, M Barratt PA Unavailable Unavailable Herbert, M Barratt PA Unavailable Unavailable Herbert, M Barratt PA Unavailable Unavailable Herbert, M Barratt PA Unavailable Unavailable Piedad M Barratt PA Unavailable Unavailable Herbert, M Barratt PA Unavailable Unavailable Piedad, M Barratt PA Unavailable Unavailable Piedad M Andreaatt PA Unavailable Unavailable Petrancosta, Butts Mavis PA-C Unavailable Unavailabl e Petrancosta, Butts Mavis PA-C Unavailable Unavailabl e Petrancosta, Butts Mavis PA-C Unavailable Unavailabl e Petrancosta, Butts Mavis PA-C Unavailable Unavailabl e Petrancosta, Butts Mavis PA-C Unavailable Unavailabl e Petrancosta, Butts Mavis PA-C Unavailable Unavailabl e Petrancosta, Butts Mavis PA-C Unavailable Unavailabl e Petrancosta, Butts Mavis PA-C Unavailable Unavailabl e Petrancosta, Butts Mavis PA-C Unavailable Unavailabl e Petrancosta, Butts Mavis PA-C Unavailable Unavailabl e Petrancosta, Butts Mavis PA-C Unavailable Unavailabl e Petrancosta, Butts Mavis PA-C Unavailable Unavailabl e Petrancosta, Butts Mavis PA-C Unavailable Unavailabl e Petrancosta, Butts Mavis PA-C Unavailable Unavailabl e Petrancosta, Butts Mavis PA-C Unavailable Unavailabl e Petrancosta, Butts Mavis PA-C Unavailable Unavailabl e Petrancosta, Butts Mavis PA-C Unavailable Unavailabl e Petrancosta, Butts Mavis PA-C Unavailable Unavailabl e Petrancosta, Butts Mavis PA-C Unavailable Unavailabl e Petrancosta, Butts Mavis PA-C Unavailable Unavailabl e Petrancosta, Butts Mavis PA-C Unavailable Unavailabl e Petrancosta, Butts Mavis PA-C Unavailable Unavailabl e Petrancosta, Butts Mavis PA-C Unavailable Unavailkyara e Aviva Elliott MD Unavailable Unavailable Aviva Elliott MD Unavailable Unavailable VanurmilaamAviva MD Unavailable Unavailable VaneenpertaamAviva MD Unavailable Unavailable VaneenenaamAviva MD Unavailable Unavailable VaneenenaamAviva MD Unavailable Unavailable VaneenenaamAviva MD Unavailable Unavailable VanAviva rodgers MD Unavailable Unavailable VanAviva rodgers MD Unavailable Unavailable VanurmilaamAviva MD Unavailable Unavailable VanurmilaamAviva MD Unavailable Unavailable VanAviva rodgers MD Unavailable Unavailable VanAviva rodgers MD Unavailable Unavailable Aviva Elliott MD Unavailable Unavailable Aviva Elliott MD Unavailable Unavailable VanAviva rodgers MD Unavailable Unavailable VanAviva rodgers MD Unavailable Unavailable VanAviva rodgers MD Unavailable Unavailable VanAviva rodgers MD Unavailable Unavailable Aviva Elliott MD Unavailable Unavailable Aviva Elliott MD Unavailable Unavailable Aviva Elliott MD Unavailable Unavailable Aviva Elliott MD Unavailable Unavailable Aviva Elliott MD Unavailable Unavailable Aviva Elliott MD Unavailable Unavailable Aviva Elliott MD Unavailable Unavailable Aviva Elliott MD Unavailable Unavailable Aviva Elliott MD Unavailable Unavailable Aviva Elliott MD Unavailable Unavailable Aviva Elliott MD Unavailable Unavailable Aviva Elliott MD Unavailable Unavailable Aviva Elliott MD Unavailable Unavailable Aviva Elliott MD Unavailable Unavailable Aviva Elliott MD Unavailable Unavailable Aviva Elliott MD Unavailable Unavailable Aviva Elliott MD Unavailable Unavailable Aviva Elliott MD Unavailable Unavailable Aviva Elliott MD Unavailable Unavailable Aviva Elliott MD Unavailable Unavailable Aviva Elliott MD Unavailable Unavailable Aviva Elliott MD Unavailable Unavailable Aviva Elliott MD Unavailable Unavailable Re-disclosure Warning The records that you are about to access may contain information from federally-assisted alcohol or drug abuse programs. If such information is present, then the following federally mandated warning applies: This information has been disclosed to you from records protected by federal confidentiality rules (42 CFR part 2). The federal rules prohibit you from making any further disclosure of this information unless further disclosure is expressly permitted by the written consent of the person to whom it pertains or as otherwise permitted by 42 CFR part 2. A general authorization for the release of medical or other information is NOT sufficient for this purpose. The Federal rules restrict any use of the information to criminally investigate or prosecute any alcohol or drug abuse patient.The records that you are about to access may contain highly sensitive health information, the redisclosure of which is protected by Article 27-F of the [facility] Public Health law. If you continue you may have access to information: Regarding HIV / AIDS; Provided by facilities licensed or operated by the [facility] Office of Mental Health; or Provided by the [facility] Office for People With Developmental Disabilities. If such information is present, then the following [facility] mandated warning applies: This information has been disclosed to you from confidential records which are protected by state law. State law prohibits you from making any further disclosure of this information without the specific written consent of the person to whom it pertains, or as otherwise permitted by law. Any unauthorized further disclosure in violation of state law may result in a fine or detention sentence or both. A general authorization for the release of medical or other information is NOT sufficient authorization for further disc losure. Family History Family Member Name Family Member Gender Family Member Status Date o f Status Description Data Source(s) Unknown Female Problem [facility] ([facility]) Unknown Unknown Problem [facility] ([facility] Encounters Encounter Providers Location Date Indications Data Source(s ) Office Visit Attender: JUSTINA LOPEZ Physical Therapy 09/01/2020 11:45:00 AM EST [facility] ([facility]) Outpatient Attender: Mavis Gillespie PA-C Main Office 08/29/2020 12:45:00 PM EST [facility] ([facility] Office Visit Attender: Aviva Elliott MD Physical Therap y 07/20/2020 01:00:00 PM EST [facility] ([facility]) Outpatient Attender: Mavis Gillespie PA-C Main Office 06/09/2020 09:15:00 AM EST [facility] ([facility] Outpatient Attender: Mavis Gillespie PA-C Main Office 04/06/2020 09:15:00 AM EDT [facility] ([facility] Outpatient Attender: Kelvin LOPEZ Physical Therapy 02:15:00 PM EDT [facility] ([facility]) Outpatient Attender: Melody LOPEZ Main Office 01/28/2020 11:40:00 AM EDT [facility] ([facility] [place] [address] [facility] [facility] [address] 01/18/2020 12:00:00 AM EDT eCW1 ([facility]) Outpatient Referrer: Kelvin LOPEZ 01/12/2020 04:54:0 0 PM EDT [facility] Outpatient Referrer: Kelvin LOPEZ 01/12/2020 03:13:0 0 PM EDT [facility] Outpatient Referrer: Kelvin LOPEZ 01/08/2020 02:27:0 0 PM EDT [facility] Outpatient Referrer: Kelvin LOPEZ 01/07/2020 12:01:0 0 PM EDT [facility] Outpatient Attender: Lani Borges [facility] Main Office 12/30/2019 0 2:30:00 PM EDT [facility] ([facility] Immunizations Vaccine Date Status Description Data Source(s) New in 2012. IIV4 05/18/2020 11:02:00 AM EDT completed [facility] ([facility] Medications Medication Brand Name Start Date Product Form Dose Route Admi nistrative Instructions Pharmacy Instructions Status Indications Reaction Description Data Source(s) 2 % 08/30/2020 12:00:00 AM EST ointment 22 APPLY A PEA SIZED AMOUNT TO NASAL PASSAGES THREE TIMES A DAY FOR 5 DAYS PRIOR TO SURGERY APPLY A PEA SIZED AMOUNT TO NASAL PASSAGES THREE TIMES A DAY FOR 5 DAYS PRIOR TO SURGERY SOLD: 08/30/2020 [facility] Mupirocin 0.02 MG/MG Topical Ointment Mupirocin 08/29/2020 12:00:00 AM EST active [facility] ([facility]) chlorhexidine gluconate 40 MG/ML Medicated Liquid Soap [Hibi clens] Hibiclens 08/29/2020 12:00:00 AM EST active [facility] ([facility]) 5 mg 08/11/2020 12:00:00 AM EST tablet 90 TAKE ONE TABLET BY MOUTH EVERY DAY FOR BLOOD PRESURE TAKE ONE TABLET BY MOUTH EVERY DAY FOR BLOOD PRESURE S OLD: 08/16/2020 [facility] 5 mg 06/11/2020 12:00:00 AM EST tablet 90 TAKE ONE TABLET BY MOUTH EVERY DAY TAKE ONE TABLET BY MOUTH EVERY DAY SOLD: 08/16/2020 [facility] 5 mg 06/11/2020 12:00:00 AM EST tablet 60 TAKE ONE TABLET BY MOUTH EVERY DAY TAKE ONE TABLET BY MOUTH EVERY DAY SOLD: 06/11/2020 [facility] Amlodipine 5 MG Oral Tablet Amlodipine Besylate 06/09/2020 12:00:00 A M EST ORAL active [facility] ([facility] Donepezil hydrochloride 5 MG Oral Tablet Donepezil HCL 06/09/2020 12:00:00 AM EST ORAL active [facility] ([facility] 20 mg 05/13/2020 12:00:00 AM EDT tablet 90 TAKE ONE TABLET BY MOUTH EVERY DAY TAKE ONE TABLET BY MOUTH EVERY DAY SOLD: 08/16/2020 [facility] 20 mg 05/13/2020 12:00:00 AM EDT tablet 90 TAKE ONE TABLET BY MOUTH EVERY DAY TAKE ONE TABLET BY MOUTH EVERY DAY SOLD: 05/17/2020 [facility] 0.005 % 02/10/2020 12:00:00 AM EDT drops 7 INSTILL ONE DROP IN EACH EYE EVERY EVENING DIRECTED INSTILL ONE DROP IN EACH EYE EVERY EVENI NG DIRECTED SOLD: 05/17/2020 [facility] 0.005 % 02/10/2020 12:00:00 AM EDT drops 7 INSTILL ONE DROP IN EACH EYE EVERY EVENING DIRECTED INSTILL ONE DROP IN EACH EYE EVERY EVENI NG DIRECTED SOLD: 02/11/2020 [facility] 300 mg 02/05/2020 12:00:00 AM EDT capsule 90 TAKE ONE CAPSULE BY MOUTH EVERY EVENING FOR SCIATICA SYMPTOMS TAKE ONE CAPSULE BY MOUTH EVERY EVENING FOR SCIATICA SYMPTOMS SOLD: 02/11/2020 [facility] 300 mg 02/05/2020 12:00:00 AM EDT capsule 90 TAKE ONE CAPSULE BY MOUTH EVERY EVENING FOR SCIATICA SYMPTOMS TAKE ONE CAPSULE BY MOUTH EVERY EVENING FOR SCIATICA SYMPTOMS SOLD: 05/17/2020 [facility] 300 mg 02/05/2020 12:00:00 AM EDT capsule 90 TAKE ONE CAPSULE BY MOUTH EVERY EVENING FOR SCIATICA SYMPTOMS TAKE ONE CAPSULE BY MOUTH EVERY EVENING FOR SCIATICA SYMPTOMS SOLD: 08/16/2020 [facility] 10 mg 08/14/2019 12:00:00 AM EST tablet 90 TAKE ONE TABLET BY MOUTH EVERY DAY FOR BLOOD PRESSURE TAKE ONE TABLET BY MOUTH EVERY DAY FOR BLOOD PRESSURE SOLD: 08/15/2019 [facility] 10 mg 08/14/2019 12:00:00 AM EST tablet 90 TAKE ONE TABLET BY MOUTH EVERY DAY FOR BLOOD PRESSURE TAKE ONE TABLET BY MOUTH EVERY DAY FOR BLOOD PRESSURE SOLD: 05/17/2020 [facility] 10 mg 08/14/2019 12:00:00 AM EST tablet 90 TAKE ONE TABLET BY MOUTH EVERY DAY FOR BLOOD PRESSURE TAKE ONE TABLET BY MOUTH EVERY DAY FOR BLOOD PRESSURE SOLD: 02/11/2020 [facility] 10 mg 08/14/2019 12:00:00 AM EST tablet 90 TAKE ONE TABLET BY MOUTH EVERY DAY FOR BLOOD PRESSURE TAKE ONE TABLET BY MOUTH EVERY DAY FOR BLOOD PRESSURE SOLD: 11/11/2019 [facility] 20 mg 05/12/2019 12:00:00 AM EDT tablet 90 TAKE ONE TABLET BY MOUTH EVERY DAY FOR CHOLESTEROL TAKE ONE TABLET BY MOUTH EVERY DAY FOR CHOLESTEROL [facility] 20 mg 05/12/2019 12:00:00 AM EDT tablet 90 TAKE ONE TABLET BY MOUTH EVERY DAY FOR CHOLESTEROL TAKE ONE TABLET BY MOUTH EVERY DAY FOR CHOLESTEROL [facility] 20 mg 05/12/2019 12:00:00 AM EDT tablet 90 TAKE ONE TABLET BY MOUTH EVERY DAY FOR CHOLESTEROL TAKE ONE TABLET BY MOUTH EVERY DAY FOR CHOLESTEROL [facility] 300 mg 02/09/2019 12:00:00 AM EDT capsule 90 TAKE ONE CAPSULE BY MOUTH EVERY EVENING FOR SCIATICA SYMPTOMS TAKE ONE CAPSULE BY MOUTH EVERY EVENING FOR SCIATICA SYMPTOMS SOLD: 08/15/2019 [facility] 300 mg 02/09/2019 12:00:00 AM EDT capsule 90 TAKE ONE CAPSULE BY MOUTH EVERY EVENING FOR SCIATICA SYMPTOMS TAKE ONE CAPSULE BY MOUTH EVERY EVENING FOR SCIATICA SYMPTOMS SOLD: 11/11/2019 [facility] Insurance Providers Payer name Policy type / Coverage type Policy ID Covered democrat ID Covered democrat's relationship to nam Policy Nam Plan Information [facility] [id number] SP [id number] [facility] EMPIRE JANIE DIV [id number] SP [id number] MEDICARE [id number] SP [id number] [facility] EMPIRE JANIE DIV [id number] SP [id number] [facility] [id number] SP [id number] MEDICARE [id number] SP [id number] A MEDICARE C [id number] S [id number] EMPIRE ([facility]) O [id number] S [id number] [facility] EMPIRE JANIE DIV UNAVAILABLE UNAVAILABLE ANS-Medicare Part B [id number] ANSI-Commercial [id number] [facility] Part B [id number] Self [id number] [place] [id number] Self [id number] ANSI-Commercial [id number] ANSMedicare Part [id number] ANSMedicare Part B [id number] ANSI-Commercial [id number] ANSI-Commercial [id number] ANSI-Medicare Part B [id number] [place] [employer] Medigap Part B [id number] Self [id number] [place] Primary [id number] Self [id number] [place] [employer] Medigap Part B [id number] Self [id number] [place] Medicare Primary [id number] Self [id number] [place] [employer] Medigap Part B [id number] Self [id number] [place] Medicare Primary [id number] Self [id number] [place] [employer] Medigap Part B [id number] Self [id number] [place] Medicare Primary [id number] Self [id number] [place] [employer] Medigap Part B [id number] Self [id number] [place] Medicare Primary [id number] Self [id number] [place] [employer] Medigap Part B [id number] Self [id number] Medicare [place] Medicare Primary [id number] Self [id number] Emp/[employer] Medigap Part B [id number] Self [id number] [place] Medicare Primary [id number] Self [id number] Emp/[employer] Medigap Part B [id number] Self [id number] [place] Medicare Primary [id number] Self [id number] UNITED HEALTHCARE [id number] SP [id number] [employer] EMPIRE JANIE DIV [id number] SP [id number] Emp/[employer] Medigap Part B [id number] Self [id number] Medicare [facility] Medicare Primary [id number] Self [id number] [facility] Medigap Part B Self Medicare [facility] Medicare Primary Self [place] [facility] Medigap Part B Self Medicare [facility] Medicare Primary Self MEDICARE P [id number] S [id number] A [id number] A Surgeries/Procedures Procedure Description Date Indications Data Source(s) X-Ray Hip Unilateral With Pelvis 2-3 Views 01/06/2020 12:00:00 AM EDT [facility] ([facility]) Results ID Date Data Source [id number] 09/01/2020 04:35:00 PM EST [facility] ([facility] Name Value Range Interpretation Code Description Data Di rce(s) Supporting Document(s) Prothrombin Time 13.2 s 12.5-14.3 [facility] ([facility] Inr 0.98 [facility] ([facility] THERAPUTIC HUMAN INR VALUES INDICATIONS NORMAL RANGES PROPHYLAXIS/TREATMENT OF: VENOUS THROMBOSIS 2.0-3.0 PULMONARY EMBOLISM 2.0-3.0 PREVENTION OF SYSTEMIC EMBOLISM FROM: TISSUE HEART VALVES 2.0-3.0 ACUTE MYOCARDIAL INFARCTION 2.0-3.0 VALVULAR HEART DISEASE 2.0-3.0 ATRIAL FIBRILLATION 2.0-3.0 MECHANICAL VALVES(HIGH RISK) 2.5-3.5 RECURRENT MYOCARDIAL INFARCTION 2.5-3.5 ID Date Data Source [id number] 09/01/2020 02:40:00 PM EST [facility] ([facility]) Name Value Range Interpretation Code Description Data Di rce(s) Supporting Document(s) Prothrombin Time 13.2 s 12.5-14.3 [facility] ([facility]) Inr 0.98 [facility] ([facility]) THERAPUTIC HUMAN INR VALUES INDICATIONS NORMAL RANGES PROPHYLAXIS/TREATMENT OF: VENOUS THROMBOSIS 2.0-3.0 PULMONARY EMBOLISM 2.0-3.0 PREVENTION OF SYSTEMIC EMBOLISM FROM: TISSUE HEART VALVES 2.0-3.0 ACUTE MYOCARDIAL INFARCTION 2.0-3.0 VALVULAR HEART DISEASE 2.0-3.0 ATRIAL FIBRILLATION 2.0-3.0 MECHANICAL VALVES(HIGH RISK) 2.5-3.5 RECURRENT MYOCARDIAL INFARCTION 2.5-3.5 ID Date Data Source [id number] 08/31/2020 09:00:00 AM EST [facility] Name Value Range Interpretation Code Description Data Di rce(s) Supporting Document(s) SARS coronavirus 2 RNA Not Detected [facility] [place] This lab was ordered by [facility] and reported by [facility]. ID Date Data Source [id number] 08/29/2020 02:59:00 PM EST [facility] ([facility]) Name Value Range Interpretation Code Description Data Di rce(s) Supporting Document(s) Glucose, Fasting 106 mg/dL 70-100 [facility] ([facility]) Creatinine For GFR 1.10 mg/dL 0.70-1.30 [facility] ([facility]) Blood Urea Nitrogen 28 mg/dL 7-18 [facility] ([facility]) Glomerular Filtration Rate Laboratory test result [facility] ([facility]) <content>Units are mL/min/1.73 m2</content>
<content></content>
<content>Chronic Kidney Disease Staging per [facility]:</content>
<content></content>
<content>Stage I & II GFR >=60 Normal to Mildly Decreased</content>
<content>Stage III GFR 30- 59 Moderately Decreased</content>
<content>Stage IV GFR 15-29 Severely Decreased</content>
<content>Stage V GFR <15 Very Little GFR Left</content>
<content>ESRD GFR <15 on ENTER[employer]D ARCHITECT</content>
<content></content> Sodium Level 141 meq/L 136-145 [facility] ([facility]) Potassium Serum 4.3 meq/L 3.5-5.1 [facility] ([facility]) Chloride Level 102 meq/L 98-107 [facility] ([facility]) Carbon Dioxide Level 32 meq/L 21-32 [facility] ([facility]) Anion Gap 7 meq/L 8-16 [facility] ([facility]) Calcium Level 9.3 mg/dL 8.8-10.2 [facility] ([facility]) Ast/Sgot 12 U/L 7-37 [facility] ([facility]) Alt/SGPT 26 U/L 12-78 [facility] ([facility]) Alkaline Phosphatase 53 U/L 45-117 [facility] ([facility]) Bilirubin,Total 0.7 mg/dL 0.2-1.0 [facility] ([facility]) Total Protein 7.4 GM/DL 6.4-8.2 [facility] ([facility]) Albumin/Globulin Ratio 1.2 [facility] ([facility]) Albumin 4.0 GM/DL 3.2-5.2 [facility] ([facility]) ID Date Data Source [id number] 08/29/2020 02:59:00 PM EST [facility] ([facility]) Name Value Range Interpretation Code Description Data Di rce(s) Supporting Document(s) Erythrocyte sedimentation rate by Westergren method 7 mm/hr 0-20 [facility] ([facility]) ID Date Data Source [id number] 08/29/2020 02:59:00 PM EST [facility] ([facility]) Name Value Range Interpretation Code Description Data Di rce(s) Supporting Document(s) White Blood Count 8.7 10 4.0-10.0 [facility] ([facility]) Hemoglobin 15.1 g/dL 13.5-17.5 [facility] ([facility]) Red Blood Count 5.12 10 4.30-6.10 [facility] ([facility]) Hematocrit 45.5 % 42.0-52.0 [facility] ([facility]) Mean Corpuscular Volume 88.9 fl 80.0-96.0 M EDENT ([facility]) Mean Corpuscular Hemoglobin 29.5 pg 27.0-33.0 [facility] ([facility]) Mean Corpuscular HGB Conc 33.2 g/dL 32.0-36.5 [facility] ([facility]) Red Cell Distribution Width 14.2 % 11.5-14.5 [facility] ([facility]) Platelet Count, Automated 204 10 150-450 [facility] ([facility]) Neutrophils % 73.6 % 36.0-66.0 [facility] [facility] Lymph % 15.3 % 24.0-44.0 [facility] ([facility]) [place] % 10.0 % 0.0-5.0 [facility] ([facility]) Eos % 0.6 % 0.0-3.0 [facility] ([facility]) Baso % 0.3 % 0.0-1.0 [facility] ([facility]) Nucleated Red Blood Cell % 0.0 % 0-0 [facility] ([facility]) Immature Granulocyte % 0.2 % 0-3.0 [facility] ([facility]) Lymph # 1.3 10 1.5-5.0 [facility] ([facility] Neutrophils # 6.4 10 1.5-8.5 [facility]) [place] # 0.9 10 0.0-0.8 [facility] ([facility] Baso # 0.0 10 0.0-0.2 [facility] ([facility] Eos # 0.1 10 0.0-0.5 [facility] ([facility]) ID Date Data Source [id number] 08/29/2020 02:59:00 PM EST [facility] ([facility] Name Value Range Interpretation Code Description Data Di rce(s) Supporting Document(s) Glucose, Fasting 106 mg/dL 70-100 [facility] ([facility] Creatinine For GFR 1.10 mg/dL 0.70-1.30 [facility] ([facility] Blood Urea Nitrogen 28 mg/dL 7-18 [facility] ([facility] Sodium Level 141 meq/L 136-145 [facility] ([facility] Glomerular Filtration Rate Laboratory test result [facility] ([facility] <content>Units are mL/min/1.73 m2</content>
<content></content>
<content>Chronic Kidney Disease Staging per [facility]:</content>
<content></content>
<content>Stage I & II GFR >=60 Normal to Mildly Decreased</content>
<content>Stage III GFR 30- 59 Moderately Decreased</content>
<content>Stage IV GFR 15-29 Severely Decreased</content>
<content>Stage V GFR <15 Very Little GFR Left</content>
<content>ESRD GFR <15 on [employer] ARCHITECT</content>
<content></content> Potassium Serum 4.3 meq/L 3.5-5.1 [facility] ([facility] Carbon Dioxide Level 32 meq/L 21-32 [facility] ([facility] Chloride Level 102 meq/L 98-107 [facility] ([facility] Anion Gap 7 meq/L 8-16 [facility] ([facility] Calcium Level 9.3 mg/dL 8.8-10.2 [facility] ([facility] Ast/Sgot 12 U/L 7-37 [facility] ([facility] Bilirubin,Total 0.7 mg/dL 0.2-1.0 [facility] ([facility] Alkaline Phosphatase 53 U/L 45-117 [facility] ([facility] Alt/SGPT 26 U/L 12-78 [facility] ([facility] Total Protein 7.4 GM/DL 6.4-8.2 [facility] ([facility] Albumin/Globulin Ratio 1.2 [facility] ([facility] Albumin 4.0 GM/DL 3.2-5.2 [facility] ([facility] ID Date Data Source [id number] 08/29/2020 02:59:00 PM EST [facility] ([facility] Name Value Range Interpretation Code Description Data Di rce(s) Supporting Document(s) Erythrocyte sedimentation rate by 2H Westergren method 7 mm/hr 0-2 0 [facility] ([facility] ID Date Data Source [id number] 08/29/2020 02:59:00 PM EST [facility] ([facility] Name Value Range Interpretation Code Description Data Di rce(s) Supporting Document(s) White Blood Count 8.7 10 4.0-10.0 [facility] ([facility] Hemoglobin 15.1 g/dL 13.5-17.5 [facility] ([facility] Red Blood Count 5.12 10 4.30-6.10 [facility] ([facility] Mean Corpuscular Volume 88.9 fl 80.0-96.0 M [facility] ([facility] Mean Corpuscular Hemoglobin 29.5 pg 27.0-33.0 [facility] ([facility] Hematocrit 45.5 % 42.0-52.0 [facility] ([facility] Platelet Count, Automated 204 10 150-450 [facility] ([facility] Red Cell Distribution Width 14.2 % 11.5-14.5 [facility] ([facility] Mean Corpuscular HGB Conc 33.2 g/dL 32.0-36.5 [facility] ([facility] Lymph % 15.3 % 24.0-44.0 [facility] ([facility] Neutrophils % 73.6 % 36.0-66.0 [facility] ([facility] Eos % 0.6 % 0.0-3.0 [facility] ([facility] Baso % 0.3 % 0.0-1.0 [facility] ([facility] [place] % 10.0 % 0.0-5.0 [facility] ([facility] Nucleated Red Blood Cell % 0.0 % 0-0 [facility] ([facility] Neutrophils # 6.4 10 1.5-8.5 [facility] ([facility] Immature Granulocyte % 0.2 % 0-3.0 [facility] ([facility] Lymph # 1.3 10 1.5-5.0 [facility] ([facility] [place] # 0.9 10 0.0-0.8 [facility] ([facility] Baso # 0.0 10 0.0-0.2 [facility] ([facility] Eos # 0.1 10 0.0-0.5 [facility] ([facility] ID Date Data Source [id number] 08/26/2020 11:09:00 AM EST [facility] ([facility]) Name Value Range Interpretation Code Description Data Di rce(s) Supporting Document(s) Erythrocyte sedimentation rate by Westergren method Laboratory test result [facility] ([facility]) ID Date Data Source [id number] 08/26/2020 11:07:00 AM EST [facility] ([facility]) Name Value Range Interpretation Code Description Data Di rce(s) Supporting Document(s) EKG Laboratory test result [facility] ([facility]) ID Date Data Source [id number] 08/26/2020 11:07:00 AM EST [facility] ([facility]) Name Value Range Interpretation Code Description Data Di rce(s) Supporting Document(s) Chest x-ray Laboratory test result [facility] T ([facility]) ID Date Data Source [id number] 07/21/2020 01:05:00 PM EST [facility] ([facility]) Name Value Range Interpretation Code Description Data Di rce(s) Supporting Document(s) Laboratory test finding (navigational concept) Laboratory test result [facility] ([facility]) ID Date Data Source [id number] 06/07/2020 08:10:00 AM EST [facility] ([facility] Name Value Range Interpretation Code Description Data Di rce(s) Supporting Document(s) White Blood Count 4.8 10 4.0-10.0 [facility] ([facility] Hemoglobin 14.2 g/dL 13.5-17.5 [facility] ([facility] Red Blood Count 4.95 10 4.30-6.10 [facility] ([facility] Mean Corpuscular Hemoglobin 28.7 pg 27.0-33.0 [facility] ([facility] Hematocrit 44.7 % 42.0-52.0 [facility] ([facility] Mean Corpuscular Volume 90.3 fl 80.0-96.0 M [facility] ([facility] Platelet Count, Automated 215 10 150-450 [facility] ([facility] Red Cell Distribution Width 14.5 % 11.5-14.5 [facility] ([facility] Mean Corpuscular HGB Conc 31.8 g/dL 32.0-36.5 [facility] ([facility] [place] % 11.2 % 0.0-5.0 [facility] ([facility] Lymph % 35.7 % 24.0-44.0 [facility] ([facility] Neutrophils % 48.8 % 36.0-66.0 [facility] ([facility] Immature Granulocyte % 0.0 % 0-3.0 [facility] ([facility] Eos % 3.1 % 0.0-3.0 [facility] Baso % 1.2 % 0.0-1.0 [facility] Nucleated Red Blood Cell % 0.0 % 0-0 [facility] ([facility] Neutrophils # 2.4 10 1.5-8.5 [facility] ([facility] Lymph # 1.7 10 1.5-5.0 [facility] ([facility] Eos # 0.2 10 0.0-0.5 [facility] ([facility] [place] # 0.5 10 0.0-0.8 [facility] ([facility] Baso # 0.1 10 0.0-0.2 [facility] ([facility] ID Date Data Source [id number] 06/07/2020 08:10:00 AM EST [facility] ([facility] Name Value Range Interpretation Code Description Data Di rce(s) Supporting Document(s) Triglycerides Level 103 mg/dL [facility] ([facility] Cholesterol Level 159 mg/dL [facility] ([facility] LDL Cholesterol 92 mg/dL [facility] ([facility] Non-HDL-C 113 mg/dL [facility] ([facility] HDL Cholesterol 46 mg/dL [facility] ([facility] Cholesterol Risk Ratio 3.456 [facility] ([facility] ID Date Data Source [id number] 06/07/2020 08:10:00 AM EST [facility] ([facility] Name Value Range Interpretation Code Description Data Di rce(s) Supporting Document(s) Glucose, Fasting 99 mg/dL 70-100 [facility] ([facility] Blood Urea Nitrogen 21 mg/dL 7-18 [facility] ([facility] Creatinine For GFR 0.84 mg/dL 0.70-1.30 [facility] ([facility] Glomerular Filtration Rate Laboratory test result [facility] ([facility] <content>Units are mL/min/1.73 m2</content>
<content></content>
<content>Chronic Kidney Disease Staging per [facility]:</content>
<content></content>
<content>Stage I & II GFR >=60 Normal to Mildly Decreased</content>
<content>Stage III GFR 30- 59 Moderately Decreased</content>
<content>Stage IV GFR 15-29 Severely Decreased</content>
<content>Stage V GFR <15 Very Little GFR Left</content>
<content>ESRD GFR <15 on [employer] ARCHITECT</content>
<content></content> Sodium Level 140 meq/L 136-145 [facility] ([facility] Potassium Serum 4.5 meq/L 3.5-5.1 [facility] ([facility] Chloride Level 105 meq/L 98-107 [facility] ([facility] Anion Gap 4 meq/L 8-16 [facility] ([facility] Calcium Level 8.5 mg/dL 8.8-10.2 [facility] ([facility] Carbon Dioxide Level 31 meq/L 21-32 [facility] ([facility] Alt/SGPT 21 U/L 12-78 [facility] ([facility] Alkaline Phosphatase 46 U/L 45-117 [facility] ([facility] Ast/Sgot 15 U/L 7-37 [facility] ([facility] Bilirubin,Total 0.7 mg/dL 0.2-1.0 [facility] ([facility] Total Protein 7.0 GM/DL 6.4-8.2 [facility] ([facility] Albumin 3.9 GM/DL 3.2-5.2 [facility] ([facility] Albumin/Globulin Ratio 1.3 [facility] ([facility] ID Date Data Source [id number] 01/29/2020 02:10:00 PM EDT [facility] ([facility] Name Value Range Interpretation Code Description Data Di rce(s) Supporting Document(s) White Blood Count 5.1 10 4.0-10.0 [facility] ([facility] Hematocrit 42.0 % 42.0-52.0 [facility] ([facility] Hemoglobin 13.3 g/dL 13.5-17.5 [facility] ([facility] Red Blood Count 4.74 10 4.30-6.10 [facility] ([facility] Mean Corpuscular HGB Conc 31.7 g/dL 32.0-36.5 [facility] ([facility] Mean Corpuscular Volume 88.6 fl 80.0-96.0 M [facility] ([facility] Mean Corpuscular Hemoglobin 28.1 pg 27.0-33.0 [facility] ([facility] Neutrophils % 61.0 % 36.0-66.0 [facility] ([facility] Platelet Count, Automated 223 10 150-450 [facility] ([facility] Red Cell Distribution Width 14.6 % 11.5-14.5 [facility] ([facility] [place] % 10.0 % 0.0-5.0 [facility] ([facility] Lymph % 27.0 % 24.0-44.0 [facility] ([facility] Eos % 1.0 % 0.0-3.0 [facility] ([facility] Nucleated Red Blood Cell % 0.0 % 0-0 [facility] ([facility] Immature Granulocyte % 0.4 % 0-3.0 [facility] ([facility] Baso % 0.6 % 0.0-1.0 [facility] ([facility] Lymph # 1.4 10 1.5-5.0 [facility] ([facility] [place] # 0.5 10 0.0-0.8 [facility] ([facility] Neutrophils # 3.1 10 1.5-8.5 [facility] ([facility] Baso # 0.0 10 0.0-0.2 [facility] ([facility] Eos # 0.1 10 0.0-0.5 [facility] ([facility] ID Date Data Source [id number] 01/29/2020 02:10:00 PM EDT [facility] ([facility] Name Value Range Interpretation Code Description Data Di rce(s) Supporting Document(s) Thyrotropin [Units/volume] in Serum or Plasma 1.180 uIU/ML 0.358-3.74 0 [facility] ([facility] ID Date Data Source [id number] 01/29/2020 02:10:00 PM EDT [facility] ([facility] Name Value Range Interpretation Code Description Data Di rce(s) Supporting Document(s) Creatinine For GFR 0.88 mg/dL 0.70-1.30 [facility] ([facility] Blood Urea Nitrogen 26 mg/dL 7-18 [facility] ([facility] Glucose, Fasting 115 mg/dL 70-100 [facility] ([facility] Potassium Serum 4.1 meq/L 3.5-5.1 [facility] ([facility] Sodium Level 139 meq/L 136-145 [facility] ([facility] Glomerular Filtration Rate Laboratory test result [facility] ([facility] <content>Units are mL/min/1.73 m2</content>
<content></content>
<content>Chronic Kidney Disease Staging per [facility]:</content>
<content></content>
<content>Stage I & II GFR >=60 Normal to Mildly Decreased</content>
<content>Stage III GFR 30- 59 Moderately Decreased</content>
<content>Stage IV GFR 15-29 Severely Decreased</content>
<content>Stage V GFR <15 Very Little GFR Left</content>
<content>ESRD GFR <15 on [employer] ARCHITECT</content>
<content></content> Anion Gap 5 meq/L 8-16 [facility] ([facility] Chloride Level 106 meq/L 98-107 [facility] ([facility] Carbon Dioxide Level 28 meq/L 21-32 [facility] ([facility] Calcium Level 8.7 mg/dL 8.8-10.2 [facility] ([facility] Alt/SGPT 23 U/L 12-78 [facility] Ast/Sgot 18 U/L 7-37 [facility] Bilirubin,Total 0.6 mg/dL 0.2-1.0 [facility] ([facility] Total Protein 7.1 GM/DL 6.4-8.2 [facility] ([facility] Alkaline Phosphatase 47 U/L 45-117 [facility] Albumin/Globulin Ratio 1.1 [facility] ([facility] Albumin 3.7 GM/DL 3.2-5.2 [facility] ([facility] ID Date Data Source [id number] 01/12/2020 12:00:00 AM EDT [facility] Patient Name: BAKARI [id number] [facility] Date of : 1940 [facility] Date of Exam: 01/12/2020ANT Mcclure [id number]#: Fax: [phone] EXAM: ARTHROCENTESIS LTHIP-ASPIR / INJ STEROID/PAIN MEDSCLINICAL INFORMATION: Unilateral primary osteoarthritis of the left hip.The procedure was performed by Anat Fisher [facility], under the directsupervision of Dr. Barton.The benefits and risks including but not limited to pain, infection,bleeding and anaphylaxis were explained to the patient as well as thepotential therapeutic benefits of the procedure and the possibility of anunsuccessful procedure, and an informed consent was obtained. Directlyprior to the start of the procedure, a formal time-out was completed.The left femoral neck was localized using fluoroscopic guidance. The skinwas prepped and draped in a sterile fashion. Approximately 5 cc of 1%Lidocaine 10 mg/ml was used as a local anesthetic. Using fluoroscopicguidance, a #22 gauge spinal needle was inserted and advanced into the leftfemoral neck. Approximately 0.5 cc of Omnipaque 300 mg/ml was injected toverify placement. A 7 cc solution containing 5 cc of 1% Lidocaine 10 mg/mland 2 cc of DepoMedrol 40 mg/ml was injected into the joint space. Theneedle was then removed.The patient tolerated the procedure well and there were no immediatecomplications.Fluoroscopic images are performed with last image hold technology. Theseimages require no additional radiation to acquire.Fluoroscopy time was 11 seconds at 3 pulses/second. This is equal to 2.75seconds continuous fluoroscopy time which is a 75% reduction in radiation.Dictated by SUMANTH eRddy, with Dr. Barton.DIOMEDES [facility] for referring BAKARI HARDY to our office. Electronically Signed - ALICIA BARTON DO 01/13/20 17:09 Name Value Range Interpretation Code Description Data Di rce(s) Supporting Document(s) ID Date Data Source [id number] 01/12/2020 12:00:00 AM EDT [facility] Patient Name: BAKARI [id number] [facility] Date of : 1940 89 Date of Exam: 01/12/2020[place], [place] [id number]#: Fax: [phone] EXAM: ARTHROCENTESIS LTHIP-ASPIR / INJ STEROID/PAIN MEDSCLINICAL INFORMATION: Unilateral primary osteoarthritis of the left hip.The procedure was performed by SUMANTH Reddy, under the directsupervision of Dr. Barton.The benefits and risks including but not limited to pain, infection,bleeding and anaphylaxis were explained to the patient as well as thepotential therapeutic benefits of the procedure and the possibility of anunsuccessful procedure, and an informed consent was obtained. Directlyprior to the start of the procedure, a formal time-out was completed.The left femoral neck was localized using fluoroscopic guidance. The skinwas prepped and draped in a sterile fashion. Approximately 5 cc of 1%Lidocaine 10 mg/ml was used as a local anesthetic. Using fluoroscopicguidance, a #22 gauge spinal needle was inserted and advanced into the leftfemoral neck. Approximately 0.5 cc of Omnipaque 300 mg/ml was injected toverify placement. A 7 cc solution containing 5 cc of 1% Lidocaine 10 mg/mland 2 cc of DepoMedrol 40 mg/ml was injected into the joint space. Theneedle was then removed.The patient tolerated the procedure well and there were no immediatecomplications.Fluoroscopic images are performed with last image hold technology. Theseimages require no additional radiation to acquire.Fluoroscopy time was 11 seconds at 3 pulses/second. This is equal to 2.75seconds continuous fluoroscopy time which is a 75% reduction in radiation.Dictated by Anat Fisher, [facility], with Dr. Barton.DIOMEDES [facility] for referring BAKARI HARDY to our office. Electronically Signed - AILCIA BARTON DO 01/13/20 17:09 Name Value Range Interpretation Code Description Data Di rce(s) Supporting Document(s) Procedure Social History Code Duration Value Status Description Data Source(s ) Smoking 08/29/2020 12:00:00 AM EST Patient has never smoked co mpleted Patient has never smoked [facility] ([facility] Vital Signs ID Date Data Source [id number] Name Value Range Interpretation Code Description Data Source(s) Respiratory rate 12 /min 12 /min [facility] ( [facility]) Body mass index (BMI) [Ratio] 23.8 kg/m2 23.8 k g/m2 [facility] ([facility]) Body weight 193.25 [lb_av] 193.25 [lb_av] MED[facility] T ([facility]) Body height 75.5 [in_i] 75.5 [in_i] [facility] ([facility] 6'3.50" Body temperature 97.1 [degF] 97.1 [degF] [facility] ([facility]) Heart rate 76 /min 76 /min [facility] ([facility]) Diastolic blood pressure 74 mm[Hg] 74 mm[Hg] [facility] ([facility]) Systolic blood pressure 112 mm[Hg] 112 mm[Hg] M [facility] ([facility] Body mass index (BMI) [Ratio] 24.3 kg/m2 24.3 k g/m2 [facility] ([facility] [place] body weight 196 [lb_av] 196 [lb_av] [facility] T ([facility] Oxygen saturation in Arterial blood by Pulse oximetry 98 % 98 % [facility] ([facility] Body weight 194.38 [lb_av] 194.38 [lb_av] [facility] T ([facility] Body height 75 [in_i] 75 [in_i] [facility] ([facility] 6'3" Respiratory rate 15 /min 15 /min [facility] ( [facility] Body temperature 96.8 [degF] 96.8 [degF] [facility] ([facility] Heart rate 63 /min 63 /min [facility] ([facility] Diastolic blood pressure 70 mm[Hg] 70 mm[Hg] [facility] ([facility] Systolic blood pressure 155 mm[Hg] 155 mm[Hg] M ED[facility] ([facility] Diastolic blood pressure 82 mm[Hg] 82 mm[Hg] [facility] Systolic blood pressure 164 mm[Hg] 164 mm[Hg] M ED[facility] ([facility] Body mass index (BMI) [Ratio] 24.6 kg/m2 24.6 k g/m2 [facility] ([facility] Body weight 196.50 [lb_av] 196.50 [lb_av] MEDEN T ([facility]) Body height 75 [in_i] 75 [in_i] [facility] ([facility]) 6'3" Body temperature 96.2 [degF] 96.2 [degF] [facility] ([facility]) Body mass index (BMI) [Ratio] 24.3 kg/m2 24.3 k g/m2 [facility] ([facility] [place] body weight 196 [lb_av] 196 [lb_av] [facility] T ([facility] Oxygen saturation in Arterial blood by Pulse oximetry 98 % 98 % [facility]ENT ([facility] Body weight 194.38 [lb_av] 194.38 [lb_av] MEDEN T ([facility] Body height 75 [in_i] 75 [in_i] MEDENT ([facility] 6'3" Respiratory rate 16 /min 16 /min MED[facility] ( [facility] Body temperature 97.1 [degF] 97.1 [degF] [facility] ([facility] Heart rate 57 /min 57 /min MED[facility] ([facility] Diastolic blood pressure 55 mm[Hg] 55 mm[Hg] MED[facility] ([facility] Systolic blood pressure 129 mm[Hg] 129 mm[Hg] EDENT ([facility] Body temperature 97.7 [degF] 97.7 [degF] MEDENT ([facility] Body mass index (BMI) [Ratio] 23.0 kg/m2 23.0 k g/m2 MEDENT ([facility] [place] body weight 202 [lb_av] 202 [lb_av] MEDEN T ([facility] Oxygen saturation in Arterial blood by Pulse oximetry 98 % 98 % MEDENT ([facility] Body weight 190.50 [lb_av] 190.50 [lb_av] MEDEN T ([facility] Body height 76.25 [in_i] 76.25 [in_i] MEDENT ([facility] 6'4.25" Respiratory rate 18 /min 18 /min [facility] ( [facility] Body temperature 97.8 [degF] 97.8 [degF] [facility] ([facility] Heart rate 62 /min 62 /min [facility] ([facility] Diastolic blood pressure 68 mm[Hg] 68 mm[Hg] [facility] ([facility] Systolic blood pressure 124 mm[Hg] 124 mm[Hg] ED[facility] ([facility] Body mass index (BMI) [Ratio] 23.8 kg/m2 23.8 k g/m2 [facility] ([facility]) Body weight 190.50 [lb_av] 190.50 [lb_av] MEDEN T ([facility]) Body height 75 [in_i] 75 [in_i] [facility] ([facility]) 6'3" Body temperature 96.6 [degF] 96.6 [degF] [facility] ([facility]) Respiratory rate 16 /min 16 /min [facility] ( [facility] Body temperature 97.1 [degF] 97.1 [degF] [facility] ([facility] Heart rate 58 /min 58 /min [facility] ([facility] Diastolic blood pressure 56 mm[Hg] 56 mm[Hg] [facility] ([facility] Systolic blood pressure 128 mm[Hg] 128 mm[Hg] M EDENT ([facility] Body mass index (BMI) [Ratio] 23.2 kg/m2 23.2 k g/m2 [facility] ([facility] Oxygen saturation in Arterial blood by Pulse oximetry 98 % 98 % [facility] ([facility] Body weight 192.12 [lb_av] 192.12 [lb_av] MEDEN T ([facility] Body height 76.25 [in_i] 76.25 [in_i] [facility] ([facility] 6'4.25" Body mass index (BMI) [Ratio] 23.5 kg/m2 23.5 k g/m2 [facility] ([facility] Body weight 194.00 [lb_av] 194.00 [lb_av] MEDEN T ([facility] Body height 76.25 [in_i] 76.25 [in_i] [facility] ([facility] 6'4.25" Respiratory rate 18 /min 18 /min [facility] ( [facility] Body temperature 97.9 [degF] 97.9 [degF] [facility] ([facility] Heart rate 59 /min 59 /min [facility] ([facility] Diastolic blood pressure 66 mm[Hg] 66 mm[Hg] [facility] ([facility] Systolic blood pressure 142 mm[Hg] 142 mm[Hg] M EDENT ([facility]
[2020-09-07] MEDS: REMEDY PHYTOPLEX Z-GUARD PASTE 113GM TUBE (FROM STOREROOM PRODUCT) TOP SCH ×2 (16:00→21:00)
[2020-09-07] MEDS ORDERED: MOM 30ML SUSPENSION UDC PO PRN (16:00)
[2020-09-07] MEDS ORDERED: oxyCODONE 5MG TAB PO PRN (16:00)
[2020-09-07] MEDS ORDERED: ONDANSETRON 4 MG ORAL DISINTEGRATING TAB PO PRN (16:00)
[2020-09-07] MEDS ORDERED: BISACODYL 10 MG SUPP PR PRN (16:00)
[2020-09-07] MEDS: ACETAMINOPHEN 500 MG TAB PO SCH ×2 (16:49→21:09)
[2020-09-07 20:00] VITALS: BP 131/74
[2020-09-07] MEDS ORDERED: RAMELTEON 8 MG TAB (ROZEREM) PO SCH (21:00)
[2020-09-07] MEDS: DOCUSATE SODIUM 100MG CAPSULE PO SCH (21:09)
[2020-09-07] MEDS: SIMVASTATIN 20 MG TAB PO SCH (21:09)
[2020-09-07] MEDS: ASPIRIN 81 MG ENTERIC TAB PO SCH (21:09)
[2020-09-07] MEDS: SENNA 8.6 MG TAB (SENOKOT) PO SCH (21:09)
[2020-09-07] MEDS: GABAPENTIN 300 MG CAP PO SCH (21:09)
[2020-09-08 05:15] VITALS: BP 124/62
[2020-09-08 06:48] LABS: BASO % 0.4 % (0.0-1.0); EOS # 0.1 10^3/uL (0.0-0.5); EOS % 0.9 % (0.0-3.0); HEMATOCRIT 35.2 % (42.0-52.0); HEMOGLOBIN 11.2 g/dl (13.5-17.5); LYMPH % 12.8 % (24.0-44.0); MEAN CORPUSCULAR HEMOGLOBIN 28.1 pg (27.0-33.0); MEAN CORPUSCULAR HGB CONC 31.8 g/dl (32.0-36.5); MEAN CORPUSCULAR VOLUME 88.4 fl (80.0-96.0); MONO # 1.1 10^3/uL (0.0-0.8); MONO % 13.6 % (0.0-5.0); NEUTROPHILS # 5.6 10^3/uL (1.5-8.5); NEUTROPHILS % 71.8 % (36.0-66.0); PLATELET COUNT, AUTOMATED 176 10^3/uL (150-450); RED BLOOD COUNT 3.98 10^6/uL (4.30-6.10)
[2020-09-08 07:10] LABS: ALBUMIN 2.8 GM/DL (3.2-5.2); ALT/SGPT 18 U/L (12-78); BILIRUBIN,TOTAL 0.7 MG/DL (0.2-1.0); BLOOD UREA NITROGEN 23 MG/DL (7-18); CALCIUM LEVEL 8.5 MG/DL (8.8-10.2); CARBON DIOXIDE LEVEL 29 MEQ/L (21-32); CHLORIDE LEVEL 104 MEQ/L (98-107); CREATININE FOR GFR 0.66 MG/DL (0.70-1.30); GLOMERULAR FILTRATION RATE > 60.0 (>35); GLUCOSE, FASTING 113 MG/DL (70-100); POTASSIUM SERUM 3.9 MEQ/L (3.5-5.1); SODIUM LEVEL 139 MEQ/L (136-145); TOTAL PROTEIN 6.6 GM/DL (6.4-8.2)
[2020-09-08 07:17] LABS: WHITE BLOOD COUNT 7.7 10^3/uL (4.0-10.0)
[2020-09-08] MEDS: DONEPEZIL 5 MG TAB PO SCH (08:54)
[2020-09-08] MEDS: ASPIRIN 81 MG ENTERIC TAB PO SCH ×2 (08:54→22:18)
[2020-09-08] MEDS: PANTOPRAZOLE 40MG TAB (PROTONIX) PO SCH (08:54)
[2020-09-08] MEDS: DOCUSATE SODIUM 100MG CAPSULE PO SCH ×2 (08:54→22:19)
[2020-09-08] MEDS: ACETAMINOPHEN 500 MG TAB PO SCH ×3 (08:54→22:19)
[2020-09-08] MEDS: REMEDY PHYTOPLEX Z-GUARD PASTE 113GM TUBE (FROM STOREROOM PRODUCT) TOP SCH ×3 (08:55→21:00)
[2020-09-08] MEDS ORDERED: amLODIPine 5 MG TAB PO SCH (09:00)
--- NOTE | 2020-09-08 09:31 | HPEPDOC ---
Photo Tech Note DATE OF ADMISSION: 09-07-20 DATE OF SERVICE: 09-08-20 TIME OF ADMISSION: Please refer to physician's admission order. SOURCE OF ADMISSION INFORMATION: [facility] record and patient CHIEF COMPLAINT: hip replacement HISTORY OF PRESENT ILLNESS: 80M pmh dementia, HTN, HLD, Aflutter, BPH who had worsening left hip arthritis and presented to [facility] on 09-05-20 where he was evaluated by medicine and cleared for a left hip arthroplasty which was performed on 09-05-20. He had post-op anemia and elevated blood pressures with insomnia and had difficulty with ambulation and ADL management due to poor cognition in the setting of dementia and pain with weakness. He was evaluated by therapy and deemed medically appropriate for discharge to ARU on 09-07-20. REVIEW OF SYSTEMS: The following is a completed review of systems and has been reviewed. Review of systems otherwise unremarkable. PAIN: Patient self reports left hip pain EYES: No recent vision changes EARS, NOSE, & THROAT: No throat pain, or dysphagia, or rhinorrhea CARDIOVASCULAR: Denies chest pain or palpitations PULMONARY: Denies shortness of breath GASTROINTESTINAL: + constipation GENITOURINARY: denies dysuria MUSCULOSKELETAL: s/p left hip fracture NEUROLOGICAL:+bilat UE essential tremor HEMATOLOGICAL: denies easy bruising SKIN: left hip incision PSYCHIATRIC: Unremarkable All other review of systems found to be negative. PAST MEDICAL HISTORY: as per HPI PAST SURGICAL HISTORY: Cardiac ablation, cataract removal, colonosopy ALLERGIES: Please see below. MEDICATIONS: Please see below. SOCIAL HISTORY: No etoh/illicit drugs/smoking DIET: low sodium PHYSICAL EXAMINATION: VITAL SIGNS: Please see below. GENERAL: Pleasant and cooperative. No acute distress. HEENT: PERRL. Extraocular movements intact. Clear conjunctiva CARDIOVASCULAR: Regular rate and rhythm. No murmurs, rubs, or gallops LUNGS: Clear to auscultation bilaterally. No wheezes. No rhonchi ABDOMEN: Soft, nontender, nondistended. Positive bowel sounds. Normal active bowel sounds NEUROLOGICAL: Alert and oriented times three. Cranial nerves II through XII g rossly intact. Sensation grossly intact all 4 limbs including first web space left foot EXTREMITIES: 5\5 strength bilateral upper extremities. 5\5 strength right lower extremity. 5/5 strength in left ankle DF/EHL/PF (limited due to recent surgery) SKIN: left hip incision LABORATORY DATA: Please see below. IMAGING: Imaging documentation personally reviewed by record FUNCTIONAL STATUS: Premorbid: Modified Independent with all activities of daily life as well as mobility On Admission: Min-Max assist for bed mobility, functional transfers, toileting, ambulation, dressing GOALS: Supervision for household ambulation, dressing, toileting, functional transfers, bathing ASSESSMENT:80-year-old M with past medical history of dementia who presents status post left hip replacement PLAN: 1. Rehab- PT/OT advance gait and ADLs, strengthen/stretch/maintain ROM all 4 limbs 2. Ortho- s/p left hip replacement, Hip precautions, ortho consulted 3. Neuro- hx of dementia, c/u aricept and melatonin (patient's own med) for i nsomnia, judicious use of pain meds to avoid delirium 4. Cardiac- hx of HTN, c/u amlodipine will change to 2.5mg per 's request and change to qHS as reporting it makes him drowsy, hx of HLD c/u statin- medicine consulted to assist in overall management 5. Resp- monitor for infection 6. GI ppx- protonix 7. DVT ppx- ASA bid 8. Pain- tylenol, gabapentin 9. - monitor PVRs 10. Dispo- TBD POST ADMISSION PHYSICIAN EVALUATION: Medical and functional status: Description of medical status, medical assessment: As above. Rehabilitation diagnosis and current and prior cold morbid medical conditions as above. Risk of complications and plans to mitigate them as above. Description of functional status current status is as above. Prior status as above. Status compared to preadmission: There are no clinically significant differences between the patient's current status and the information described on the preadmission screening document. Treatment plan anticipated: Treatment plan is as described above. Required disciplines including physical therapy, occupational therapy, others as noted above. Intensity of services: 3 hours a day, 6 days a week. Special considerations: There are no specific special or safety considerations that would likely preclude immediate implementation of an intensive rehabilitation program or subsequently influence the plan of care. ATTESTATION: Considering all the information above, it is my best judgment that this patient requires intensive rehabilitation therapy as described above and an inpatient hospital environment due to the complexity of nursing, medical, and rehabilitation needs required by the patient. Furthermore, this patient can reasonably be expected to participate in an benefit from an inpatient rehabilitation stay with an interdisciplinary team approach to the delivery of rehabilitation care under the direction and supervision of rehabilitation physician. PROGNOSIS: good ESTIMATED LENGTH OF STAY:10-14 days. PROJECTED DISCHARGE DESTINATION: Home with family support and any durable medical equipment required to increase functional safety and mobility. TIME SPENT COUNSELING AND COORDINATING INITIAL CARE: Greater than 70 minutes. Vital Signs Vital Sign - Last 24 Hours 09/07/20 09/07/20 09/07/20 09/07/20 14:05 20:00 22:25 23:01 Temp 99.2 99.1 Pulse 72 77 Resp 17 17 18 18 B/P (MAP) 126/63 (84) 131/74 (93) Pulse Ox 93 92 O2 Delivery Room Air Room Air Room Air Room Air 09/08/20 09/08/20 05:15 08:55 Temp 98.3 Pulse 62 62 Resp 18 B/P (MAP) 124/62 (82) 124/62 Pulse Ox 95 O2 Delivery Room Air Laboratory Data CBC/BMP Laboratory Tests 09/08/20 06:29 Labs 24H Laboratory Tests 2 09/08/20 06:29: Immature Granulocyte % (Auto) 0.5, Neutrophils (%) (Auto) 71.8H, Lymphocytes (%) (Auto) 12.8L, Monocytes (%) (Auto) 13.6H, Eosinophils (%) (Auto) 0.9, Basophils (%) (Auto) 0.4, Neutrophils # (Auto) 5.6, Lymphocytes # (Auto) 1.0L, Monocytes # (Auto) 1.1H, Eosinophils # (Auto) 0.1, Basophils # (Auto) 0.0, Nucleated Red Blood Cells % (auto) 0.0, Anion Gap 6L, Glomerular Filtration Rate > 60.0, Calcium Level 8.5L, Total Bilirubin 0.7, Aspartate Amino Transf (AST/SGOT) 23, Alanine Aminotransferase (ALT/SGPT) 18, Alkaline Phosphatase 42L, Total Protein 6.6, Albumin 2.8L, Albumin/Globulin Ratio 0.7 Home Medications Scheduled Amlodipine Besylate (Amlodipine Besylate) 10 Mg Tablet, 0.5 TAB PO DAILY, (Reported) Aspirin (Ecotrin) 81 Mg Tablet.dr, 81 MG PO BID D3/E/Se/Soy Isofl/Tocoph/Lycop (Prostate 2.4 Capsule) 1 Cap Cap, 1 CAP PO DAILY, (Reported) Donepezil Hcl (Donepezil HCl Odt) 5 Mg Tab.rapdis, 5 MG PO DAILY, (Reported) Gabapentin (Gabapentin) 300 Mg Cap, 300 MG PO QHS, (Reported) Gluc/MSM/C/[place]/Manganes/Prim (Joint Support Complex Softgel) 1 Each Capsule, 1 CAP PO DAILY, (Reported) Latanoprost (Xalatan) 0.005% 2.5ML Drops, 1 DROP OU QHS, (Reported) Magnesium Oxide (Magnesium) 400 Mg Capsule, 400 MG PO Q2D, (Reported) Melatonin (Melatonin) 3 Mg Tablet, 1 TAB PO QPM [place]-3 Fatty Acids/Fish Oil ([place] 3 1,000 mg Softgel) 1 Cap Cap, 1 CAP PO DAILY, (Reported) Simvastatin (Simvastatin) 40 Mg Tab, 20 MG PO QHS, (Reported) Scheduled PRN Oxycodone HCl/Acetaminophen (Percocet 5-325 mg Tablet) 1 Each Tablet, 1-2 TAB PO Q4H PRN for PAIN Allergies Coded Allergies: No Known Allergies (Unverified , 09/05/20) A-FIB/CHADSVASC A-FIB History Current/History of A-Fib/PAF?: No Current PO Anticoag Therapy: No NATASHA OGDEN MD Sep 08, 2020 09:31
--- NOTE | 2020-09-08 12:21 | CR ---
CONSULTATION DATE: 09/08/2020 REFERRING PHYSICIAN: NATASHA OGDEN MD HISTORY OF PRESENT ILLNESS: He was recently discharged from the Hospitalist Service. He was admitted after undergoing a left hip arthroplasty on 09/05. Medical history is significant for dementia, chronic anxiety/insomnia and hypertension. Currently, no problems with chest pain or shortness of breath, resting comfortably. CURRENT MEDICATIONS: 1. Amlodipine 5 mg daily. 2. Protonix 40 mg daily. 3. Aricept 5 mg daily. 4. Bowel care. 5. Aspirin 81 mg daily. 6. Neurontin 300 mg q.h.s. 7. Rozerem 8 mg q.h.s. 8. Simvastatin 20 mg daily. ALLERGIES: None known. REVIEW OF SYSTEMS: As above. No rectal bleeding, epistaxis or urinary bleeding. PHYSICAL EXAMINATION: VITAL SIGNS: Blood pressure 124/62, vital signs are stable. GENERAL APPEARANCE: Alert, conversant, in no distress, a little withdrawn, answers are vague and lack content. LUNGS: Clear. HEART: Regular rhythm. ABDOMEN: Soft, nontender. No peripheral edema. EXTREMITIES: Normal strength in the arms and legs. NEUROLOGIC: Nonfocal. LABORATORY DATA: CBC and BMP unremarkable. IMPRESSION: 1. Hypertension, well-controlled on current regimen. 2. Hyperlipidemia, continue simvastatin. 3. Dementia, continue Aricept. Hospitalist Service is available if medical problems arise.
[2020-09-08 14:00] VITALS: BP 125/65
[2020-09-08] MEDS: GABAPENTIN 100 MG CAP PO SCH (15:52)
[2020-09-08 20:00] VITALS: BP 120/58
[2020-09-08] MEDS: SIMVASTATIN 20 MG TAB PO SCH (22:19)
[2020-09-08] MEDS: SENNA 8.6 MG TAB (SENOKOT) PO SCH (22:19)
[2020-09-08] MEDS: MELATONIN 3 MG PO SCH (22:20)
[2020-09-08] MEDS: GABAPENTIN 300 MG CAP PO SCH (22:21)
[2020-09-09 05:12] VITALS: BP 129/61
[2020-09-09 06:50] LABS: BASO % 0.4 % (0.0-1.0); EOS # 0.1 10^3/uL (0.0-0.5); EOS % 1.3 % (0.0-3.0); HEMATOCRIT 35.6 % (42.0-52.0); HEMOGLOBIN 11.6 g/dl (13.5-17.5); LYMPH # 1.1 10^3/uL (1.5-5.0); LYMPH % 15.1 % (24.0-44.0); MEAN CORPUSCULAR HEMOGLOBIN 28.7 pg (27.0-33.0); MEAN CORPUSCULAR HGB CONC 32.6 g/dl (32.0-36.5); MEAN CORPUSCULAR VOLUME 88.1 fl (80.0-96.0); MONO # 0.8 10^3/uL (0.0-0.8); MONO % 11.7 % (0.0-5.0); NEUTROPHILS % 71.1 % (36.0-66.0); PLATELET COUNT, AUTOMATED 204 10^3/uL (150-450); RED BLOOD COUNT 4.04 10^6/uL (4.30-6.10); WHITE BLOOD COUNT 7.1 10^3/uL (4.0-10.0)
[2020-09-09 07:26] LABS: BLOOD UREA NITROGEN 23 MG/DL (7-18); CALCIUM LEVEL 8.7 MG/DL (8.8-10.2); CARBON DIOXIDE LEVEL 30 MEQ/L (21-32); CHLORIDE LEVEL 103 MEQ/L (98-107); CREATININE FOR GFR 0.61 MG/DL (0.70-1.30); GLOMERULAR FILTRATION RATE > 60.0 (>35); GLUCOSE, FASTING 104 MG/DL (70-100); POTASSIUM SERUM 3.9 MEQ/L (3.5-5.1); SODIUM LEVEL 139 MEQ/L (136-145)
[2020-09-09] MEDS: REMEDY PHYTOPLEX Z-GUARD PASTE 113GM TUBE (FROM STOREROOM PRODUCT) TOP SCH ×3 (09:00→20:17)
[2020-09-09] MEDS: DOCUSATE SODIUM 100MG CAPSULE PO SCH ×2 (09:49→20:15)
[2020-09-09] MEDS: DONEPEZIL 5 MG TAB PO SCH (09:49)
[2020-09-09] MEDS: ASPIRIN 81 MG ENTERIC TAB PO SCH ×2 (09:49→20:16)
[2020-09-09] MEDS: GABAPENTIN 100 MG CAP PO SCH ×2 (09:49→16:33)
[2020-09-09] MEDS: PANTOPRAZOLE 40MG TAB (PROTONIX) PO SCH (09:49)
[2020-09-09] MEDS: ACETAMINOPHEN 500 MG TAB PO SCH ×3 (09:49→20:15)
[2020-09-09 14:00] VITALS: BP 132/72
[2020-09-09] MEDS: GABAPENTIN 300 MG CAP PO SCH (20:14)
[2020-09-09] MEDS: SENNA 8.6 MG TAB (SENOKOT) PO SCH (20:15)
[2020-09-09] MEDS: SIMVASTATIN 20 MG TAB PO SCH (20:15)
[2020-09-09] MEDS: MELATONIN 3 MG PO SCH (20:16)
[2020-09-09 20:20] VITALS: BP 132/65
[2020-09-10 06:00] VITALS: BP 146/65
[2020-09-10] MEDS: ASPIRIN 81 MG ENTERIC TAB PO SCH ×2 (09:11→20:17)
[2020-09-10] MEDS: PANTOPRAZOLE 40MG TAB (PROTONIX) PO SCH (09:11)
[2020-09-10] MEDS: DONEPEZIL 5 MG TAB PO SCH (09:11)
[2020-09-10] MEDS: DOCUSATE SODIUM 100MG CAPSULE PO SCH ×2 (09:11→20:17)
[2020-09-10] MEDS: GABAPENTIN 100 MG CAP PO SCH ×2 (09:11→15:27)
[2020-09-10] MEDS: REMEDY PHYTOPLEX Z-GUARD PASTE 113GM TUBE (FROM STOREROOM PRODUCT) TOP SCH ×3 (09:12→20:17)
[2020-09-10] MEDS: ACETAMINOPHEN 500 MG TAB PO SCH ×3 (09:12→20:16)
[2020-09-10 14:00] VITALS: BP 129/60
[2020-09-10 20:00] VITALS: BP 125/68
[2020-09-10] MEDS: SENNA 8.6 MG TAB (SENOKOT) PO SCH (20:17)
[2020-09-10] MEDS: GABAPENTIN 300 MG CAP PO SCH (20:17)
[2020-09-10] MEDS: MELATONIN 3 MG PO SCH (20:17)
[2020-09-10] MEDS: SIMVASTATIN 20 MG TAB PO SCH (20:17)
[2020-09-11 05:58] VITALS: BP 133/61
[2020-09-11] MEDS: ASPIRIN 81 MG ENTERIC TAB PO SCH ×2 (08:54→21:10)
[2020-09-11] MEDS: DOCUSATE SODIUM 100MG CAPSULE PO SCH ×2 (08:55→21:10)
[2020-09-11] MEDS: ACETAMINOPHEN 500 MG TAB PO SCH ×3 (08:55→21:12)
[2020-09-11] MEDS: PANTOPRAZOLE 40MG TAB (PROTONIX) PO SCH (08:55)
[2020-09-11] MEDS: GABAPENTIN 100 MG CAP PO SCH ×2 (08:55→14:15)
[2020-09-11] MEDS: DONEPEZIL 5 MG TAB PO SCH (08:55)
[2020-09-11] MEDS: REMEDY PHYTOPLEX Z-GUARD PASTE 113GM TUBE (FROM STOREROOM PRODUCT) TOP SCH ×3 (08:56→21:11)
[2020-09-11 14:00] VITALS: BP 117/61
[2020-09-11 20:00] VITALS: BP 118/65
[2020-09-11] MEDS: SIMVASTATIN 20 MG TAB PO SCH (21:10)
[2020-09-11] MEDS: GABAPENTIN 300 MG CAP PO SCH (21:10)
[2020-09-11] MEDS: SENNA 8.6 MG TAB (SENOKOT) PO SCH (21:10)
[2020-09-11] MEDS: MELATONIN 3 MG PO SCH (21:10)
[2020-09-12 05:55] VITALS: BP 140/72
[2020-09-12 07:58] LABS: BASO % 0.6 % (0.0-1.0); EOS # 0.1 10^3/uL (0.0-0.5); EOS % 1.6 % (0.0-3.0); HEMATOCRIT 38.3 % (42.0-52.0); HEMOGLOBIN 12.4 g/dl (13.5-17.5); LYMPH # 1.2 10^3/uL (1.5-5.0); LYMPH % 17.9 % (24.0-44.0); MEAN CORPUSCULAR HEMOGLOBIN 28.1 pg (27.0-33.0); MEAN CORPUSCULAR HGB CONC 32.4 g/dl (32.0-36.5); MEAN CORPUSCULAR VOLUME 86.8 fl (80.0-96.0); MONO # 0.7 10^3/uL (0.0-0.8); MONO % 10.5 % (0.0-5.0); NEUTROPHILS # 4.4 10^3/uL (1.5-8.5); NEUTROPHILS % 68.9 % (36.0-66.0); PLATELET COUNT, AUTOMATED 307 10^3/uL (150-450); RED BLOOD COUNT 4.41 10^6/uL (4.30-6.10); WHITE BLOOD COUNT 6.4 10^3/uL (4.0-10.0)
[2020-09-12 08:12] LABS: BLOOD UREA NITROGEN 24 MG/DL (7-18); CALCIUM LEVEL 8.6 MG/DL (8.8-10.2); CARBON DIOXIDE LEVEL 27 MEQ/L (21-32); CHLORIDE LEVEL 104 MEQ/L (98-107); CREATININE FOR GFR 0.73 MG/DL (0.70-1.30); GLOMERULAR FILTRATION RATE > 60.0 (>35); GLUCOSE, FASTING 114 MG/DL (70-100); POTASSIUM SERUM 3.9 MEQ/L (3.5-5.1); SODIUM LEVEL 141 MEQ/L (136-145)
[2020-09-12] MEDS: DONEPEZIL 5 MG TAB PO SCH (09:17)
[2020-09-12] MEDS: PANTOPRAZOLE 40MG TAB (PROTONIX) PO SCH (09:17)
[2020-09-12] MEDS: ASPIRIN 81 MG ENTERIC TAB PO SCH ×2 (09:17→20:37)
[2020-09-12] MEDS: GABAPENTIN 100 MG CAP PO SCH ×2 (09:18→14:55)
[2020-09-12] MEDS: DOCUSATE SODIUM 100MG CAPSULE PO SCH ×2 (09:18→20:37)
[2020-09-12] MEDS: ACETAMINOPHEN 500 MG TAB PO SCH ×3 (09:18→20:38)
[2020-09-12] MEDS: REMEDY PHYTOPLEX Z-GUARD PASTE 113GM TUBE (FROM STOREROOM PRODUCT) TOP SCH ×3 (09:21→20:37)
[2020-09-12 14:00] VITALS: BP 120/60
[2020-09-12 20:00] VITALS: BP 145/67
[2020-09-12] MEDS: MELATONIN 3 MG PO SCH (20:36)
[2020-09-12] MEDS: SIMVASTATIN 20 MG TAB PO SCH (20:37)
[2020-09-12] MEDS: SENNA 8.6 MG TAB (SENOKOT) PO SCH (20:37)
[2020-09-12] MEDS: GABAPENTIN 300 MG CAP PO SCH (20:37)
[2020-09-12 20:38] VITALS: BP 145/67
[2020-09-13 05:15] VITALS: BP 162/78
[2020-09-13] MEDS: REMEDY PHYTOPLEX Z-GUARD PASTE 113GM TUBE (FROM STOREROOM PRODUCT) TOP SCH (09:00)
--- NOTE | 2020-09-13 09:07 | IPNPDOC ---
PM&R Progress Note DATE OF SERVICE: Sep 12, 2020 Emergency Vehicle Driver Progress Note Subjective: Patient seen in his room stating he feels like he is in [facility] with all the alarms going off. He is still having difficulty sleeping. REVIEW OF SYSTEMS: The following is a completed review of systems and has been reviewed. Review of systems otherwise unremarkable. PAIN: Patient self reports left hip pain EYES: No recent vision changes EARS, NOSE, & THROAT: No throat pain, or dysphagia, or rhinorrhea CARDIOVASCULAR: Denies chest pain or palpitations PULMONARY: Denies shortness of breath GASTROINTESTINAL: + constipation (resovled) GENITOURINARY: denies dysuria MUSCULOSKELETAL: s/p left hip fracture NEUROLOGICAL:+bilat UE essential tremor HEMATOLOGICAL: denies easy bruising SKIN: left hip incision PSYCHIATRIC: Unremarkable All other review of systems found to be negative. PHYSICAL EXAMINATION: VITAL SIGNS: Please see below. GENERAL: Pleasant and cooperative. No acute distress. HEENT: PERRL. Extraocular movements intact. Clear conjunctiva CARDIOVASCULAR: Regular rate and rhythm. No murmurs, rubs, or gallops LUNGS: Clear to auscultation bilaterally. No wheezes. No rhonchi ABDOMEN: Soft, nontender, nondistended. Positive bowel sounds. Normal active bowel sounds NEUROLOGICAL: Alert and oriented times three. Cranial nerves II through XII grossly intact. Sensation grossly intact all 4 limbs including first web space left foot EXTREMITIES: 5\5 strength bilateral upper extremities. 5\5 strength right lower extremity. 5/5 strength in left ankle DF/EHL/PF (limited due to recent surgery) SKIN: left hip incision c/d/i ASSESSMENT:80-year-old M with past medical history of dementia who presents status post left hip replacement PLAN: 1. Rehab- PT/OT advance gait and ADLs, strengthen/stretch/maintain ROM all 4 limbs 2. Ortho- s/p left hip replacement, Hip precautions, ortho consulted 3. Neuro- hx of dementia, c/u aricept and melatonin (patient's own med) for insomnia, judicious use of pain meds to avoid delirium 4. Cardiac- hx of HTN, c/u amlodipine changed to 2.5mg per 's request and change to qHS as reporting it makes him drowsy, hx of HLD c/u statin- medicine consulted to assist in overall management 5. Resp- monitor for infection 6. GI ppx- protonix 7. DVT ppx- ASA bid 8. Pain- tylenol, gabapentin 9. - monitor PVRs 10. Dispo- 09-13-20 to home, came in for training, progressing towards goals Allergies Coded Allergies: No Known Allergies (Unverified , 09/05/20) Vital Signs Vital Signs Date Time Temp Pulse Resp B/P (MAP) Pulse Ox O2 Delivery O2 Flow Rate FiO2 09/13/20 05:15 98.0 92 20 162/78 (106) 99 Room Air Current Medications Current Medications Current Medications Medications (Trade) Dose Ordered Sig/Linda Route PRN Reason Start Time Stop Time Status Last Admin Dose Admin Acetaminophen (Tylenol Tab) 1,000 mg TID PO 09/07/20 16:00 09/12/20 20:38 Amlodipine Besylate (Norvasc) 2.5 mg QHS PO 09/08/20 21:00 09/12/20 20:38 Amlodipine Besylate (Norvasc) 5 mg DAILY PO 09/08/20 09:00 09/08/20 11:46 DC 09/08/20 08:55 Aspirin (Ecotrin) 81 mg BID PO 09/07/20 21:00 09/12/20 20:37 Bisacodyl (Dulcolax Suppository) 10 mg DAILYPRN PRN MA CONSTIPATION 09/07/20 16:00 Docusate Sodium (Colace) 100 mg BID PO 09/07/20 21:00 09/12/20 20:37 Donepezil HCl (AriCEPT) 5 mg DAILY PO 09/08/20 09:00 09/12/20 09:17 Gabapentin (Neurontin) 100 mg BID@0900,1500 PO 09/08/20 15:00 09/12/20 14:55 Gabapentin (Neurontin) 300 mg QHS PO 09/07/20 21:00 09/12/20 20:37 Home Med (Med Rec Complete!) ASDIRECTED XX 09/07/20 16:15 09/07/20 16:07 DC Magnesium Hydroxide (Milk Of Magnesia) 30 ml DAILYPRN PRN PO CONSTIPATION 09/07/20 16:00 Miscellaneous (Unresolved Patient Own Med Order) SEE LABEL COMMENTS DAILY XX 09/08/20 09:00 09/08/20 20:12 DC Ondansetron HCl (Zofran Odt) 4 mg Q6HP PRN PO NAUSEA OR VOMITING 09/07/20 16:00 Oxycodone HCl (Roxicodone, Oxyir) 5 mg Q4HP PRN PO PAIN 09/07/20 16:00 09/08/20 11:46 DC 09/07/20 22:25 Pantoprazole Sodium (Protonix) 40 mg DAILY PO 09/08/20 09:00 09/12/20 09:17 Patient Own Medication (Patient'S Own Med) 1 TABLET = 3MG = 1 DOSE QHS PO 09/08/20 21:00 09/12/20 20:36 Ramelteon (Rozerem) 8 mg QHS PO 09/07/20 21:00 09/08/20 11:46 DC 09/07/20 21:09 Senna (Senokot) 1 tab QHS PO 09/07/20 21:00 09/12/20 20:37 Simvastatin (Zocor) 20 mg QHS PO 09/07/20 21:00 09/12/20 20:37 NATASHA OGDEN MD Sep 13, 2020 09:07
[2020-09-13] MEDS ORDERED: AMLO25TA PO (09:11)
[2020-09-13] MEDS ORDERED: GABA-282 PO (09:11)
[2020-09-13] MEDS ORDERED: SIMV20TA22 PO (09:11)
[2020-09-13] MEDS ORDERED: DONETAB5 PO (09:11)
[2020-09-13] MEDS ORDERED: ASPI81TAEC PO (09:11)
[2020-09-13] MEDS: GABAPENTIN 100 MG CAP PO SCH (09:29)
[2020-09-13] MEDS: DONEPEZIL 5 MG TAB PO SCH (09:29)
[2020-09-13] MEDS: ASPIRIN 81 MG ENTERIC TAB PO SCH (09:29)
[2020-09-13] MEDS: DOCUSATE SODIUM 100MG CAPSULE PO SCH (09:29)
--- NOTE | 2020-09-13 09:29 | PMRDS ---
NAME: BAKARI DAVID [facility] WT ID#: [id number] : [id number] JOB: [id number] FANTA: 09/07/2020 ACCT: [id number] DOCTOR: NATASHA OGDEN MD PMR DISCHARGE SUMMARY DATE OF ADMISSION: 09/07/2020 DATE OF DISCHARGE: 09/13/2020 CHIEF COMPLAINT/DISCHARGE DIAGNOSIS: Hip replacement. HISTORY OF PRESENT ILLNESS: This is an 80-year-old man with a past medical history of dementia, hyperlipidemia, atrial fibrillation with BPH with worsening left hip arthritis who presented to [facility] on 09/05/2020 where he was evaluated by Medicine and cleared for a left hip arthroplasty which was performed on 09/05/2020. He had postop anemia and elevated blood pressures with insomnia and had difficulty with ambulation and ADL management due to poor cognition in the setting of dementia and pain with weakness. He was evaluated by therapy and deemed medically appropriate for discharge to ARU on 09/07/2020. PAST MEDICAL HISTORY: As per HPI. HOSPITAL COURSE: The patient was admitted and enrolled in a comprehensive PT/OT program. He received 24 hour nursing supervision and weekly team meetings were held to discuss his progress. Patient was maintained on aspirin b.i.d. for DVT prophylaxis. His evening Gabapentin dosing was increased during the day to assist with pain and he was monitored off of oxycodone and pain was well-controlled with Tylenol. He had family training and was able to be discharged home sooner than anticipated with assistance from his . DISCHARGE MEDICATIONS: As per instructions. FUNCTIONAL HISTORY: On discharge the patient was contact guard assist for ambulation under 50 feet, modified independent for bed mobility. Thank you for this referral.
[2020-09-13] MEDS: PANTOPRAZOLE 40MG TAB (PROTONIX) PO SCH (09:30)
[2020-09-13] MEDS: ACETAMINOPHEN 500 MG TAB PO SCH (09:30)
== END 2020-09-13 14:50 | disposition home health service (06) | DRG 560 ==
LOC: M PM&R 14:05
PROVIDERS: ADMIT Physical Medicine & Rehabilitation; ATTEND Physical Medicine & Rehabilitation
DX: Z47.1 Aftercare following joint replacement surgery (principal); I48.92 Unspecified atrial flutter; F03.90 Unspecified dementia, unspecified severity, without behavioral disturbance, psychotic disturbance, mood disturbance, and anxiety; I10 Essential (primary) hypertension; E78.5 Hyperlipidemia, unspecified; N40.0 Benign prostatic hyperplasia without lower urinary tract symptoms; R53.1 Weakness; K59.00 Constipation, unspecified; G25.0 Essential tremor; Z98.49 Cataract extraction status, unspecified eye; R26.89 Other abnormalities of gait and mobility; Z79.82 Long term (current) use of aspirin; Z79.899 Other long term (current) drug therapy; M16.12 Unilateral primary osteoarthritis, left hip

== ENCOUNTER 2020-09-30 13:06 | Emergency (ER) | payer MEDICARE, BC, OTHER ==
[~2020-09-30] VITALS: Ht 193 cm; Wt 88.6 kg
[~2020-09-30 13:06] MED LIST changes: +ASPI81TAEC PO; +SIMV20TA22 PO
[2020-09-30] MEDS ORDERED: CEPH500C PO (13:17)
[2020-09-30 14:02] LABS: BASO % 0.7 % (0.0-1.0); EOS # 0.1 10^3/uL (0.0-0.5); EOS % 1.1 % (0.0-3.0); HEMATOCRIT 35.4 % (42.0-52.0); HEMOGLOBIN 11.3 g/dl (13.5-17.5); LYMPH # 1.2 10^3/uL (1.5-5.0); LYMPH % 21.6 % (24.0-44.0); MEAN CORPUSCULAR HEMOGLOBIN 28.3 pg (27.0-33.0); MEAN CORPUSCULAR HGB CONC 31.9 g/dl (32.0-36.5); MEAN CORPUSCULAR VOLUME 88.7 fl (80.0-96.0); MONO # 0.6 10^3/uL (0.0-0.8); MONO % 11.7 % (2.0-8.0); NEUTROPHILS # 3.5 10^3/uL (1.5-8.5); NEUTROPHILS % 64.5 % (36.0-66.0); PLATELET COUNT, AUTOMATED 336 10^3/uL (150-450); RED BLOOD COUNT 3.99 10^6/uL (4.30-6.10); WHITE BLOOD COUNT 5.5 10^3/uL (4.0-10.0)
[2020-09-30 14:12] LABS: INR 1.06
[2020-09-30 14:13] LABS: PARTIAL THROMBOPLASTIN TIME 30.6 SECONDS (24.2-38.5)
--- NOTE | 2020-09-30 14:24 | REP ---
INDICATION: CHEST PAIN. COMPARISON: Comparison chest x-ray 29 August 2020. TECHNIQUE: Portable upright AP chest radiograph. Two views. FINDINGS: The lungs are well inflated and free of infiltrate. Pleural angles are sharp. Heart size is normal. Pulmonary vasculature is not increased. Monitoring electrodes are present. No acute bony abnormality is seen IMPRESSION: No active disease. <Electronically signed by Alden Marrero > 09/30/20 [id number]
--- OUTSIDE RECORDS SUMMARY | 2020-09-30 14:25 | CCD | Continuity of Care Document ---
Author Author Silvestre ELLIOTT MD Organization Unknown Address [address] [place] [address], [address] [place] [address] Phone [phone] Care Team Providers Care Field Health Officer Name Role Phone Melody Oakley JESSICA AUTM [...] bedtime Unknown Magnesium Oxide 250mg Tablets Unknown Thayne 3 1000mg Capsules 1 by mouth every [...] Result H/L Range Note Prothrombin Time/Inr 09/01/2020 [facility] entr [address] [place] [address] (315)- - Prothrombin Time 13.2 seconds Normal 12.5-14.3 Inr 0.98 Normal 1 CBC With Differential 08/29/2020 [facility] [address] [place] [address] (315)- - White Blood Count 8.7 10 [...] 36.0-66.0 Lymph % 15.3 % Low 24.0-44.0 [place] % 10.0 % High 0.0-5.0 Eos % 0.6 % Normal 0.0-3.0 Baso % 0.3 % Normal 0.0-1.0 Immature Granulocyte % 0.2 % Normal 0-3.0 Nucleated Red Blood Cell % 0.0 % Normal 0-0 Neutrophils # 6.4 10 Normal 1.5-8.5 Lymph # 1.3 10 Low 1.5-5.0 [place] # 0.9 10 High 0.0-0.8 Eos # 0.1 10 Normal 0.0-0.5 Baso # 0.0 10 Normal 0.0-0.2 Laboratory test finding 08/29/2020 [facility] [address] [place] [address] (315)- - Erythrocyte Sedimentation Rate 7 mm/hr Normal 0-20 Comprehensive Metabolic Profil 08/29/2020 [facility] [address] [place] [address] (315)- - Glucose, Fasting 106 mg/dL High [...] Ratio 1.2 Normal Laboratory test finding 08/26/2020 [facility] [address] [place] [address] (315)- - Erythrocyte Sedimentation Rate <pending> Xray 08/26/2020 [facility] nter (315)- - Chest x-ray <pending> Order 08/26/2020 [facility] EKG <pending> 1 THERAPUTIC HUMAN INR VALUES [...] Little GFR Left ESRD GFR <15 on BOX ORDER PERSON Procedures Date Code Description Status 09/05/2020 05688 Arthroplasty "Total Hip" W/ Or W /O Graft Completed 09/05/2020 49266 Arthroplasty "Total Hip" W/ Or W /O Graft Completed Medical Devices Description No Information Available Encounters Type Date Location Provider Dx Diagnosis Office Visit 07/20/2020 2:00p [facility] Paras Elliott MD M1 6.12 Unilateral primary osteoarthritis, left hip Assessments Date Code Description Provider 09/05/2020 M16.12 Unilateral primary osteoarthriti s, left hip Moira Mojica PA-C 09/05/2020 M16.12 Unilateral primary osteoarthriti s, left hip Paras Elliott MD 09/01/2020 Z01.818 Encounter for other preprocedura l examination Jhonny Patterson, P.A. 09/01/2020 M16.12 Unilateral primary osteoarthriti s, left hip Jhonny Patterson P.A. 07/20/2020 M16.12 Unilateral primary osteoarthriti s, left hip Paras Elliott MD 04/01/2020 M16.12 Unilateral primary osteoarthriti s, left hip Paras Elliott MD Plan of Treatment Future Appointment(s):* 09/20/2020 3:30 pm - Kelvin Herbert PA-C at [facility] Functional Status Description No Information Available Mental Status Description No Information Available Referrals Refer to Dr Reason for Referral Status Appt Date Kelvin Herbert PA-C SURGERY NO AUTH REQUIRED FOR TOTAL LEFT HIP([id number]) TO SURGERY NT Created [address] [place] [address] [phone] Kelvin Herbert PA-C SURGERY NO AUTH REQUIRED FOR LEFT TOTAL HIP([id number]) TO SURGERY NT Created [address] [place] [phone]
--- OUTSIDE RECORDS SUMMARY | 2020-09-30 14:25 | CCD | Continuity of Care Document ---
Author Author Silvestre OLIVERA [facility] Organization Unknown Address [address] [place] [address] Phone [phone] Care Team Providers Care Scroll Shear Operator Name Role Phone Moira Rhoades MD [facility] [[email or web address]] [phone] Problems Active Problems Provider Date Essential hypertension [...] Use Never Used Drugs Smoking Status Reviewed: 09/19/20 Patient has never smoked Exercise Type/Frequency Exercises regularly Sun Exposure Does not use sunscreen Seat Belt/Car Seat Always uses seat belt Smoke Alarms Yes Smoke Alarms Carbon Monoxide Detector: Yes Allergies, Adverse Reactions, Alerts Description No Known Drug Allergies Medications Active Medications SIG Qnty Indications Ordering Provide r Date Aspir-[address] 1 po bid Unknown 09/13/2020 Amlodipine Besylate 2.5mg Tablets take one tablet by mouth every day for blood pressure I10 Unk nown 09/13/2020 Tylenol Extra Strength 500mg Table ts two tabs by mouth every 6 hours as needed for pain. Unknown 09/13/2020 Donepezil HCL 5mg Tablets 1 by mouth every day 90tabs F03.90 Moira Rhoades M.D. 020 Gabapentin 300mg Capsules Take One Capsule By Mouth Every Evening For Sciatica Symptoms 90caps Sravan Moira israel M.D. 02/09/2016 Simvastatin 20mg Tablets take one tablet by mouth every day for cholesterol 90tabs E78.2 Dillan Rhoades M.D. 02/27/2011 [place]-3 [place] 6 1000mg Capsules otc Unknown Prostate Plus Capsules daily OTC Unknown Multivitamins Tablets 1 daily each vitamin otc OTC Unknown 0 Latanoprost 0.005% Solution one drop in each eye daily Unknown Magnesium Oxide 400mg Capsules 1 cap by mouth every other morning Unknown Melatonin ER 3mg Tablets ER one at hs nightly Unknown History Medications Hydroxyzine HCL 50mg Tablets take 1 tablet by mouth at bedtime as needed 30tabs Moira Rhoades M.D. 09/15/2020 - 09/19/2020 Amlodipine Besylate 5mg Tablets take one tablet by mouth every day for blood pressure 90tabs I10 Moira Rhoades M.D. 06/09/2020 - 09/14/2020 Immunizations CPT Code Status Date Vaccine Lot # [id number] Given 05/18/2020 Influenza Virus Vaccine, Quadrivalent,age 3 and up,multidose vial [id number] 26779 Given 06/05/2019 Influenza Virus Vaccine, Quadrivalent,age 3 and up,multidose vial [id number] Given 06/05/2019 Influenza Virus Vaccine, Quadrivalent,age 3 and up,multidose vial [id number] 49139 Given 05/27/2018 Influenza Virus Vaccine, Quadrivalent,age 3 and up,multidose vial [id number] 94690 Given 05/31/2017 Prevnar 13 For Adults [id number] Given 05/10/2017 Influenza Vaccine (Fluzone)( medicare) [id number] 26534 Given 06/21/2016 Zostavax [id number] Given 05/08/2016 Influenza Vaccine (Fluzone)( medicare) [id number] 36986 Given 05/08/2016 Pneumococcal Vaccine [id number] Given 05/05/2015 Influenza Vaccine (Fluzone)( medicare) [id number] Vital Signs Date Vital Result Comment 09/19/2020 11:03am BP Systolic 139 mmHg BP Diastolic 73 mmHg Heart Rate 81 /min Body Temperature 96.7 F Respiratory Rate 18 /min Height 75 inches 6'3" Weight 193.38 lb O2 % BldC Oximetry 97 % [place] Body Weight 196 lb BMI (Body Mass Index) 24.2 kg/m2 08/29/2020 1:51pm BP Systolic 164 mmHg BP Diastolic 82 mmHg BP Systolic Recheck 155 mmHg BP Diastolic Recheck 70 mmHg Heart Rate 63 /min Body Temperature 96.8 F Respiratory Rate 15 /min Height 75 inches 6'3" Weight 194.38 lb O2 % BldC Oximetry 98 % [place] Body Weight 196 lb BMI (Body Mass Index) 24.3 kg/m2 Results Test Acquired Date Facility Test Result H/L Range Note Prothrombin Time/Inr 09/01/2020 [facility] [place], [place] [id number] [phone] Prothrombin Time 13.2 seconds Normal 12.5-14.3 Inr 0.98 Normal 1 CBC With Differential 08/29/2020 [facility] [place], [place] [id number] [phone] White Blood Count 8.7 10 Normal 4.0-10.0 [...] 36.0-66.0 Lymph % 15.3 % Low 24.0-44.0 [place] % 10.0 % High 0.0-5.0 Eos % 0.6 % Normal 0.0-3.0 Baso % 0.3 % Normal 0.0-1.0 Immature Granulocyte % 0.2 % Normal 0-3.0 Nucleated Red Blood Cell % 0.0 % Normal 0-0 Neutrophils # 6.4 10 Normal 1.5-8.5 Lymph # 1.3 10 Low 1.5-5.0 [place] # 0.9 10 High 0.0-0.8 Eos # 0.1 10 Normal 0.0-0.5 Baso # 0.0 10 Normal 0.0-0.2 Laboratory test finding 08/29/2020 [facility] [place], [place] [address] [phone] Erythrocyte Sedimentation Rate 7 mm/hr Normal 0 -20 Comprehensive Metabolic Profil 08/29/2020 [facility] [place] [address] [phone] Glucose, Fasting 106 mg/dL High 70-100 Blood [...] Ratio 1.2 Normal Comprehensive Metabolic Profil 06/07/2020 [facility] [phone] Glucose, Fasting 99 mg/dL Normal 70-100 Blood [...] Albumin/Globulin Ratio 1.3 Normal Lipid Panel 06/07/2020 [facility] nter [phone] Triglycerides Level 103 mg/dL Normal <150 Cholesterol Level 159 mg/dL Normal <200 HDL Cholesterol 46 mg/dL Normal >40 LDL Cholesterol 92 mg/dL Normal <100 Non-HDL-C 113 mg/dL Normal Cholesterol Risk Ratio 3.456 Normal <5 CBC With Differential 06/07/2020 [facility] [phone] White Blood Count 4.8 10 Normal 4.0-10.0 [...] 36.0-66.0 Lymph % 35.7 % Normal 24.0-44.0 [place] % 11.2 % High 0.0-5.0 Eos % 3.1 % High 0.0-3.0 Baso % 1.2 % High 0.0-1.0 Immature Granulocyte % 0.0 % Normal 0-3.0 Nucleated Red Blood Cell % 0.0 % Normal 0-0 Neutrophils # 2.4 10 Normal 1.5-8.5 Lymph # 1.7 10 Normal 1.5-5.0 [place] # 0.5 10 Normal 0.0-0.8 Eos # [...] Little GFR Left ESRD GFR <15 on FIELD CROP HARVEST WORKER 3 Units are mL/min/1.73 m2 Chronic Kidney Disease Staging per NKF: Stage I & II GFR >=60 Normal to Mildly Decreased Stage III GFR 30-59 Moderately Decreased Stage IV GFR 15-29 Severely Decreased Stage V GFR <15 Very Little GFR Left ESRD GFR <15 on FIELD CROP HARVEST WORKER Procedures Description No Information Available Medical Devices Description No Information Available Encounters Type Date Location Provider Dx Diagnosis Office Visit 09/19/2020 10:45a Main Office Mavis Olivera PA M16.12 Unilateral primary osteoarthritis, left hip F03.90 Unspecified dementia without behavioral disturbance G47.9 Sleep disorder, unspecified Office Visit 08/29/2020 1:45p Main Office Mavis [...] disorder, unspecified Assessments Date Code Description Provider 09/19/2020 M16.12 Unilateral primary osteoarthriti s, left hip Mavis Olivera PA 09/19/2020 F03.90 Unspecified dementia without beh avioral disturbance Mavis Olivera PA 09/19/2020 G47.9 Sleep disorder, unspecified Chago ancostMavis abdi, PA 08/29/2020 Z01.818 Encounter for other preprocedura l examination Mavis Olivera PA 08/29/2020 I10 Essential (primary) hypertension Mavis Olivera PA 08/29/2020 E78.2 Mixed hyperlipidemia Mavis Olivera, PA 08/29/2020 F03.90 Unspecified dementia without beh [...] Rhoades M.D. 06/09/2020 I10 Essential (primary) hypertension JohnostMavis abdi PA 06/09/2020 E78.2 Mixed hyperlipidemia Luis Alberto Rhoades M.D. 06/09/2020 E78.2 Mixed hyperlipidemia Mavis Olivera PA 06/09/2020 F03.90 Unspecified dementia without beh avioral disturbance Moira Rhoades M.D. 06/09/2020 F03.90 Unspecified dementia without beh avioral disturbance Mavis Olivera PA 05/18/2020 Z23 Encounter for immunization Olivia ncostaMavis PA 04/06/2020 G47.9 Sleep disorder, unspecified Mavis Mckee PA Plan of Treatment Future Appointment(s):* 01/11/2021 10:30 am - Moira Rhoades M.D. at Main Office 09/19/2020 - Mavis Olivera PA* M16.12 Unilateral primary osteoarthritis, left hip* Comments:* s/p total hip replacementhas ortho follow up tomorrow, set up with home PT and walker. Seems to be healing well and pain is adequately controlled * F03.90 Unspecified dementia without behavioral disturbance* Comments:* continue donepezil may consider low dose seroquel at night if disorientation/sleep issues continue * Follow up:* 4 months * G47.9 Sleep disorder, unspecified* Comments:* lengthy discussion regarding sleep hygiene and keeping a regular sleep scheduleMove Melatonin to later in the night vs evening to help with duration of effectivenessI am not comfortable giving him sleep aid or benzo due to history of dementia and recent surgery. High fall risk and frequently gets disoriented at night a lready. * All * Comments:* Hospital notes, imaging and labs reviewedTCM notes reviewed in the chartPatient was contact within 2 days of discharge Functional Status Functional Condition Comment Date Status Glasses Readers Active Independent with all ADL's Activ e Independent with all IADL's Acti ve Mental Status Mental Condition Comment Date Status None Active Referrals Description No Information Available
--- OUTSIDE RECORDS SUMMARY | 2020-09-30 14:25 | CCD | Continuity of Care Document ---
Author Silvestre Ingram PA-C Organization Unknown Address [address] [place] [address] Phone [phone] Care Team Providers Care Set Up Mold Technician Name Role Phone Melody Oakley AUTM [phone] Problems Description No Information Available Social History Type Date Description Comments Sex Unknown ETOH Use Occasionally consumes alcohol Tobacco Use Start: Unknown Denies Smoking Allergies, Adverse Reactions, Alerts Description No Known Drug Allergies Medications Active Medications SIG Qnty Indications Ordering Provide r Date Cephalexin 500mg Tablets 4 tabs a day for 10 days. 40tabs Z96.642 Emil Reyes MD 09/23/2020 Hibiclens 4% Liquid use in shower once [...] bedtime Unknown Magnesium Oxide 250mg Tablets Unknown [place] 3 1000mg Capsules 1 by mouth every [...] Result H/L Range Note Prothrombin Time/Inr 09/01/2020 [facility] entr [address] [place] [address] (315)- - Prothrombin Time 13.2 seconds Normal 12.5-14.3 Inr 0.98 Normal 1 CBC With Differential 08/29/[address] [address] (315)- - White Blood Count 8.7 10 [...] 36.0-66.0 Lymph % 15.3 % Low 24.0-44.0 [place] % 10.0 % High 0.0-5.0 Eos % 0.6 % Normal 0.0-3.0 Baso % 0.3 % Normal 0.0-1.0 Immature Granulocyte % 0.2 % Normal 0-3.0 Nucleated Red Blood Cell % 0.0 % Normal 0-0 Neutrophils # 6.4 10 Normal 1.5-8.5 Lymph # 1.3 10 Low 1.5-5.0 [place] # 0.9 10 High 0.0-0.8 Eos # 0.1 10 Normal 0.0-0.5 Baso # 0.0 10 Normal 0.0-0.2 Laboratory test finding 08/29/2020 [facility] [address] [place] [address] (315)- - Erythrocyte Sedimentation Rate 7 mm/hr Normal 0-20 Comprehensive Metabolic Profil 08/29/[address] [address] (315)- - Glucose, Fasting 106 mg/dL High [...] Ratio 1.2 Normal Laboratory test finding 08/26/2020 [address] [place] [place] [address] (315)- - Erythrocyte Sedimentation Rate <pending> Xray 08/26/2020 [facility] nter (315)- - Chest x-ray <pending> Order 08/26/2020 [facility] nter EKG <pending> 1 THERAPUTIC HUMAN INR [...] Little GFR Left ESRD GFR <15 on 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 Z01.818 Encounter for other preprocedural examination M16.12 Unilateral primary osteoarth ritis, left hip Office Visit 07/20/2020 2:00p Issuekain Elliott MD M1 6.12 Unilateral primary osteoarthritis, left hip Assessments Date Code Description Provider 09/23/2020 Z47.1 Aftercare following joint replac ement surgery Kelvin Herbert PA-C 09/23/2020 Z96.642 Presence of left artificial hip joint Kelvin Herbert PA-C 09/20/2020 Z47.1 Aftercare following joint replac ement surgery Kelvin Herbert PA-C 09/20/2020 Z96.642 Presence of left artificial hip joint Kelvin Herbert PA-C 09/05/2020 M16.12 Unilateral primary osteoarthriti s, left hip Moira Mojica PA-C 09/05/2020 M16.12 Unilateral primary osteoarthriti s, left hip Paras Elliott MD 09/01/2020 Z01.818 Encounter for other preprocedura l examination Jhonny Patterson, PKenyaA. 09/01/2020 M16.12 Unilateral primary osteoarthriti s, left hip Jhonny Patterson, Kevin 07/20/2020 M16.12 Unilateral primary osteoarthriti s, left hip Paras Elliott MD 04/01/2020 M16.12 Unilateral primary osteoarthriti s, left hip Paras Elliott MD Plan of Treatment Future Appointment(s):* 10/17/2020 1:00 pm - Kelvin Herbert PA-C at [place] 09/23/2020 - Kelvin Herbert PA-C* Z47.1 Aftercare following joint replacement surgery * Z96.642 Presence of left artificial hip joint* New Medication:* Cephalexin 500 mg - 4 tabs a day for 10 days. * Follow up:* keep as scheduled with [facility]MS please. Functional Status Description No Information Available Mental Status Description No Information Available Referrals Refer to Dr Reason for Referral Status Appt Date Kelvin Herbert PA-C SURGERY NO AUTH REQUIRED FOR TOTAL LEFT HIP([id number]) TO SURGERY NT Created [address] [place] [address] [phone] Kelvin Herbert PA-C SURGERY NO AUTH REQUIRED FOR LEFT TOTAL HIP([id number]) TO SURGERY NT Created [address] [place] [address] [phone]
--- OUTSIDE RECORDS SUMMARY | 2020-09-30 14:25 | CCD | Continuity of Care Document ---
Author Author Silvestre OLIVERA [facility] Organization Unknown Address [address] [place] [address] Phone [phone] Care Team Providers Care Community Health Education Coordinator Name Role Phone Moira Rhoades MD [facility] [phone] Problems Active Problems Provider Date Essential hypertension [...] cholesterol 90tabs E78.2 Dillan Rhoades M.D. 02/27/2011 [place]-3 [place] 6 1000mg Capsules otc Unknown Prostate Plus [...] CPT Code Status Date Vaccine Lot # [id number] Given 05/18/2020 Influenza Virus Vaccine, Quadrivalent,age 3 and up,multidose vial [id number] 82854 Given 06/05/2019 Influenza Virus Vaccine, Quadrivalent,age 3 and up,multidose vial [id number] Given 06/05/2019 Influenza Virus Vaccine, Quadrivalent,age 3 and up,multidose vial [id number] 44620 Given 05/27/2018 Influenza Virus Vaccine, Quadrivalent,age 3 and up,multidose vial [id number] 68920 Given 05/31/2017 Prevnar 13 For Adults [id number] Q2038 Given 05/10/2017 Influenza Vaccine (Fluzone)( medicare) [id number] 41085 Given 06/21/2016 Zostavax Q2038 Given 05/08/2016 Influenza Vaccine (Fluzone)( medicare) [id number] 39867 Given 05/08/2016 Pneumococcal Vaccine [id number] Q2038 Given 05/05/2015 Influenza Vaccine (Fluzone)( medicare) [id number] Vital Signs Date Vital Result Comment 09/19/2020 11:03am BP Systolic 139 mmHg BP Diastolic 73 mmHg Heart Rate 81 /min Body Temperature 96.7 F Respiratory Rate 18 /min Height 75 inches 6'3" Weight 193.38 lb O2 % BldC Oximetry 97 % [place] Body Weight 196 lb BMI (Body Mass Index) 24.2 kg/m2 08/29/2020 1:51pm BP Systolic 164 mmHg BP Diastolic 82 mmHg BP Systolic Recheck 155 mmHg BP Diastolic Recheck 70 mmHg Heart Rate 63 /min Body Temperature 96.8 F Respiratory Rate 15 /min Height 75 inches 6'3" Weight 194.38 lb O2 % BldC Oximetry 98 % [place] Body Weight 196 lb BMI (Body Mass Index) 24.3 kg/m2 Results Test Acquired Date Facility Test Result H/L Range Note Prothrombin Time/Inr 09/01/2020 [facility] [place], [place] [address]600 [phone] Prothrombin Time 13.2 seconds Normal 12.5-14.3 Inr 0.98 Normal 1 CBC With Differential 08/29/2020 [facility]ter [place], [place] [address]66852 [phone] White Blood Count 8.7 10 Normal 4.0-10.0 [...] 36.0-66.0 Lymph % 15.3 % Low 24.0-44.0 [place] % 10.0 % High 0.0-5.0 Eos % 0.6 % Normal 0.0-3.0 Baso % 0.3 % Normal 0.0-1.0 Immature Granulocyte % 0.2 % Normal 0-3.0 Nucleated Red Blood Cell % 0.0 % Normal 0-0 Neutrophils # 6.4 10 Normal 1.5-8.5 Lymph # 1.3 10 Low 1.5-5.0 [place] # 0.9 10 High 0.0-0.8 Eos # 0.1 10 Normal 0.0-0.5 Baso # 0.0 10 Normal 0.0-0.2 Laboratory test finding 08/29/2020 [facility] [place], [place] [address]355 [phone] Erythrocyte Sedimentation Rate 7 mm/hr Normal 0 -20 Comprehensive Metabolic Profil 08/29/2020 [facility] [place] [address] [phone] Glucose, Fasting 106 mg/dL High 70-100 Blood [...] Ratio 1.2 Normal Comprehensive Metabolic Profil 06/07/2020 [facility] [phone] Glucose, Fasting 99 mg/dL Normal 70-100 Blood [...] Albumin/Globulin Ratio 1.3 Normal Lipid Panel 06/07/2020 [facility] nter [phone] Triglycerides Level 103 mg/dL Normal <150 Cholesterol Level 159 mg/dL Normal <200 HDL Cholesterol 46 mg/dL Normal >40 LDL Cholesterol 92 mg/dL Normal <100 Non-HDL-C 113 mg/dL Normal Cholesterol Risk Ratio 3.456 Normal <5 CBC With Differential 06/07/2020 [facility] [phone] White Blood Count 4.8 10 Normal 4.0-10.0 [...] 36.0-66.0 Lymph % 35.7 % Normal 24.0-44.0 [place] % 11.2 % High 0.0-5.0 Eos % 3.1 % High 0.0-3.0 Baso % 1.2 % High 0.0-1.0 Immature Granulocyte % 0.0 % Normal 0-3.0 Nucleated Red Blood Cell % 0.0 % Normal 0-0 Neutrophils # 2.4 10 Normal 1.5-8.5 Lymph # 1.7 10 Normal 1.5-5.0 [place] # 0.5 10 Normal 0.0-0.8 Eos # [...] Little GFR Left ESRD GFR <15 on MICROFABRICATION ENGINEER MANAGER 3 Units are mL/min/1.73 m2 Chronic Kidney Disease Staging per NKF: Stage I & II GFR >=60 Normal to Mildly Decreased Stage III GFR 30-59 Moderately Decreased Stage IV GFR 15-29 Severely Decreased Stage V GFR <15 Very Little GFR Left ESRD GFR <15 on MICROFABRICATION ENGINEER MANAGER Procedures Description No Information Available Medical [...] Treatment Future Appointment(s):* 10/10/2020 10:45 am - Mvais Olivera PA at Main Office 09/19/2020 - Mavis Olivera [...] frequently gets disoriented at night a lready. Functional Status Functional Condition Comment Date Status Glasses Readers Active Independent with all ADL's Activ e Independent with all IADL's Acti ve Mental Status Mental Condition Comment Date Status None Active Referrals Description No Information Available
--- OUTSIDE RECORDS SUMMARY | 2020-09-30 14:25 | CCD | Continuity of Care Document ---
Author Author Silvestre ROYAL PA-Kavya Organization Unknown Address [address] [place] [address] Phone [phone] Care Team Providers Care Fish Hatchery Superintendent Name Role Phone Melody Oakley AUTM [phone] Problems Description No Information Available Social History [...] bedtime Unknown Magnesium Oxide 250mg Tablets Unknown [place] 3 1000mg Capsules 1 by mouth every [...] Result H/L Range Note Prothrombin Time/Inr 09/01/2020 [facility] entr [address] [place] [address] (315)- - Prothrombin Time 13.2 seconds Normal 12.5-14.3 Inr 0.98 Normal 1 CBC With Differential 08/29/2020 [facility] [address] [place] [address] (315)- - White Blood Count 8.7 10 [...] 36.0-66.0 Lymph % 15.3 % Low 24.0-44.0 [place] % 10.0 % High 0.0-5.0 Eos % 0.6 % Normal 0.0-3.0 Baso % 0.3 % Normal 0.0-1.0 Immature Granulocyte % 0.2 % Normal 0-3.0 Nucleated Red Blood Cell % 0.0 % Normal 0-0 Neutrophils # 6.4 10 Normal 1.5-8.5 Lymph # 1.3 10 Low 1.5-5.0 [place] # 0.9 10 High 0.0-0.8 Eos # 0.1 10 Normal 0.0-0.5 Baso # 0.0 10 Normal 0.0-0.2 Laboratory test finding 08/29/2020 [facility] [address] [place] [address] (315)- - Erythrocyte Sedimentation Rate 7 mm/hr Normal 0-20 Comprehensive Metabolic Profil 08/29/2020 [facility] [address] [place] [address] (315)- - Glucose, Fasting 106 mg/dL High [...] Ratio 1.2 Normal Laboratory test finding 08/26/2020 [facility] [address] [place] [address] (315)- - Erythrocyte Sedimentation Rate <pending> Xray 08/26/2020 [facility] nter (315)- - Chest x-ray <pending> Order 08/26/2020 [facility] nter EKG <pending> 1 THERAPUTIC HUMAN INR [...] Little GFR Left ESRD GFR <15 on TABLE COVER FOLDER Procedures Date Code Description Status 09/05/2020 18501 Arthroplasty "Total Hip" W/ Or W /O Graft Completed 09/05/2020 98856 Arthroplasty "Total Hip" W/ Or W /O Graft Completed Medical Devices Description No Information Available Encounters Type Date Location Provider Dx Diagnosis Office Visit 07/20/2020 2:00p [place] Paras Elliott MD M1 6.12 Unilateral primary osteoarthritis, left hip Assessments Date Code Description Provider 09/05/2020 M16.12 Unilateral primary osteoarthriti s, left hip Moira Royal PA-C 09/05/2020 M16.12 Unilateral primary osteoarthriti s, left hip Paras Elliott MD 09/01/2020 Z01.818 Encounter for other preprocedura l examination Jhonny Patterson, P.A. 09/01/2020 M16.12 Unilateral primary osteoarthriti s, left hip Jhonny Patterson, P.A. 07/20/2020 M16.12 Unilateral primary osteoarthriti s, left hip Paras Elliott MD 04/01/2020 M16.12 Unilateral primary osteoarthriti s, left hip Paras Elliott MD Plan of Treatment Future Appointment(s):* 09/20/2020 3:30 pm - Kelvin Herbert PA-C at [place] Functional Status Description No Information Available Mental Status Description No Information Available Referrals Refer to Dr Reason for Referral Status Appt Date Kelvin Herbert PA-C SURGERY NO AUTH REQUIRED FOR TOTAL LEFT HIP([id number]) TO SURGERY NT Created [address] [place] [address] [phone] Kelvin Herbert PA-C SURGERY NO AUTH REQUIRED FOR LEFT TOTAL HIP([id number]) TO SURGERY NT Created [facility] [address] [address] [phone]
--- OUTSIDE RECORDS SUMMARY | 2020-09-30 14:25 | CCD | Continuity of Care Document ---
Author Author Silvestre HERBERT PA-C Organization Unknown Address [address] [place] [address] Phone [phone] Care Team Providers Care Salesperson Books Name Role Phone Melody Oakley AUTM [phone] Problems Description No Information Available Social [...] day for 5 days prior to surgery 22 Paras Elliott MD 08/29/2020 Amlodipine Besylate Tablets [...] bedtime Unknown Magnesium Oxide 250mg Tablets Unknown [place] 3 1000mg Capsules 1 by mouth every [...] Result H/L Range Note Prothrombin Time/Inr 09/01/2020 [facility] entr [address] [place] [address] (315)- - Prothrombin Time 13.2 seconds Normal 12.5-14.3 Inr 0.98 Normal 1 CBC With Differential 08/29/2020 [address] [place] [address] (315)- - White Blood Count 8.7 10 [...] 36.0-66.0 Lymph % 15.3 % Low 24.0-44.0 [place] % 10.0 % High 0.0-5.0 Eos % 0.6 % Normal 0.0-3.0 Baso % 0.3 % Normal 0.0-1.0 Immature Granulocyte % 0.2 % Normal 0-3.0 Nucleated Red Blood Cell % 0.0 % Normal 0-0 Neutrophils # 6.4 10 Normal 1.5-8.5 Lymph # 1.3 10 Low 1.5-5.0 [place] # 0.9 10 High 0.0-0.8 Eos # 0.1 10 Normal 0.0-0.5 Baso # 0.0 10 Normal 0.0-0.2 Laboratory test finding 08/29/2020 [facility] [address] [place] [address] (315)- - Erythrocyte Sedimentation Rate 7 mm/hr Normal 0-20 Comprehensive Metabolic Profil 08/29/2020 [facility] [address] [place] [address] (315)- - Glucose, Fasting 106 mg/dL High [...] Ratio 1.2 Normal Laboratory test finding 08/26/2020 [facility] [address] [place] [address] (315)- - Erythrocyte Sedimentation Rate <pending> Xray 08/26/2020 [facility] nter (315)- - Chest x-ray <pending> Order 08/26/2020 [facility] nter EKG <pending> 1 THERAPUTIC HUMAN INR [...] Little GFR Left 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 Z01.818 Encounter for other preprocedural examination M16.12 Unilateral primary osteoarth ritis, left hip Office Visit 07/20/2020 2:00p [place] Paras Elliott MD M1 6.12 Unilateral primary osteoarthritis, left hip Assessments Date Code Description Provider 09/20/2020 Z47.1 Aftercare following joint replac ement surgery Kelvin Herbert PA-C 09/20/2020 Z96.642 Presence of left artificial hip joint Kelvin Herbert PA-C 09/05/2020 M16.12 Unilateral primary osteoarthriti s, left hip Moira Mojica PA-C 09/05/2020 M16.12 Unilateral primary osteoarthriti s, left hip Paras Elliott MD 09/01/2020 Z01.818 Encounter for other preprocedura l examination Jhonny Patterson P.A. 09/01/2020 M16.12 Unilateral primary osteoarthriti s, left hip Jhonny Patterson P.A. 07/20/2020 M16.12 Unilateral primary osteoarthriti s, left hip Paras Elliott MD 04/01/2020 M16.12 Unilateral primary osteoarthriti s, left hip Paras Elliott MD Plan of Treatment Future Appointment(s):* 10/17/2020 1:00 pm - Kelvin Herbert PA-C at [place] 09/20/2020 - Kelvin Herbert PA-C* Z47.1 Aftercare following joint replacement surgery* Follow up:* in 4 weeks with BMS for left hip recheck with xrays of left hip please. * Z96.642 Presence of left artificial hip joint Functional Status Description No Information Available Mental Status Description No Information Available Referrals Refer to Reason for Referral Status Appt Date Kelvin Herbert PA-C SURGERY NO AUTH REQUIRED FOR TOTAL LEFT HIP([id number]) TO SURGERY NT Created [id number] [phone] Kelvin Herbert PA-C SURGERY NO AUTH REQUIRED FOR LEFT TOTAL HIP([id number]) TO SURGERY NT Created [facility] [address] [address] [phone]
--- OUTSIDE RECORDS SUMMARY | 2020-09-30 14:25 | CCD | Continuity of Care Document ---
Author Author Silvestre PATTERSON P.A. Organization Unknown Address [address] [place] [address], [address] [address] Phone [phone] Care Team Providers Care Endocrinology Physician Name Role Phone BjornMelody milligan JESSICA AUTM [phone] Problems Description No Information Available Social [...] bedtime Unknown Magnesium Oxide 250mg Tablets Unknown [place] 3 1000mg Capsules 1 by mouth every [...] Result H/L Range Note Prothrombin Time/Inr 09/01/2020 [facility] entr [address] [place] [address] (315)- - Prothrombin Time 13.2 seconds Normal 12.5-14.3 Inr 0.98 Normal 1 CBC With Differential 08/29/2020 [address] [place] [address] (315)- - White Blood Count 8.7 10 [...] 36.0-66.0 Lymph % 15.3 % Low 24.0-44.0 [place] % 10.0 % High 0.0-5.0 Eos % 0.6 % Normal 0.0-3.0 Baso % 0.3 % Normal 0.0-1.0 Immature Granulocyte % 0.2 % Normal 0-3.0 Nucleated Red Blood Cell % 0.0 % Normal 0-0 Neutrophils # 6.4 10 Normal 1.5-8.5 Lymph # 1.3 10 Low 1.5-5.0 [place] # 0.9 10 High 0.0-0.8 Eos # 0.1 10 Normal 0.0-0.5 Baso # 0.0 10 Normal 0.0-0.2 Laboratory test finding 08/29/2020 [facility] [address] [place] [address] (315)- - Erythrocyte Sedimentation Rate 7 mm/hr Normal 0-20 Comprehensive Metabolic Profil 08/29/2020 [address] [place] [address] (315)- - Glucose, Fasting 106 mg/dL High [...] Ratio 1.2 Normal Laboratory test finding 08/26/2020 [facility] [address] [place] [address] (315)- - Erythrocyte Sedimentation Rate <pending> Xray 08/26/2020 [facility] nter (315)- - Chest x-ray <pending> Order 08/26/2020 [facility] nter EKG <pending> 1 THERAPUTIC HUMAN INR [...] Little GFR Left 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 Z01.818 Encounter for other preprocedural examination M16.12 Unilateral primary osteoarth ritis, left hip Office Visit 07/20/2020 2:00p [place] Paras Elliott MD M1 6.12 Unilateral primary osteoarthritis, left hip Assessments Date Code Description Provider 09/05/2020 M16.12 Unilateral primary osteoarthriti s, left hip Moira Mojica PA-C 09/05/2020 M16.12 Unilateral primary osteoarthriti s, left hip Paras Elliott MD 09/01/2020 Z01.818 Encounter for other preprocedura l examination Jhonny Patterson PKenyaA. 09/01/2020 M16.12 Unilateral primary osteoarthriti s, left hip Raya MariscalA. 07/20/2020 M16.12 Unilateral primary osteoarthriti s, left hip Paras Elliott MD 04/01/2020 M16.12 Unilateral primary osteoarthriti s, left hip Paras Elliott MD Plan of Treatment Future Appointment(s):* 09/20/2020 3:30 pm - Kelvin Herbert PA-C at [place] Functional Status Description No Information Available Mental Status Description No Information Available Referrals Refer to Dr Reason for Referral Status Appt Date Kelvin Herbert PA-C SURGERY NO AUTH REQUIRED FOR TOTAL LEFT HIP([id number]) TO SURGERY NT Created [address] [place] [address] [address] [place] [address] [phone] Kelvin Herbert PA-C SURGERY NO AUTH REQUIRED FOR LEFT TOTAL HIP([id number]) TO SURGERY NT Created [facility] [address] [place] [address] [phone]
--- OUTSIDE RECORDS SUMMARY | 2020-09-30 14:25 | CCD | Continuity of Care Document ---
Author Silvestre Ingram PA-C Organization Unknown Address [address] [place] [address] Phone [phone] Care Team Providers Care Professor Computer Science Name Role Phone Melody Oakley AUTM [phone] Problems Description No Information Available Social History [...] bedtime Unknown Magnesium Oxide 250mg Tablets Unknown [place] 3 1000mg Capsules 1 by mouth every [...] Result H/L Range Note Prothrombin Time/Inr 09/01/2020 [facility] entr [address] [place] [address] (315)- - Prothrombin Time 13.2 seconds Normal 12.5-14.3 Inr 0.98 Normal 1 CBC With Differential 08/29/[address] [address] (315)- - White Blood Count 8.7 10 [...] 36.0-66.0 Lymph % 15.3 % Low 24.0-44.0 [place] % 10.0 % High 0.0-5.0 Eos % 0.6 % Normal 0.0-3.0 Baso % 0.3 % Normal 0.0-1.0 Immature Granulocyte % 0.2 % Normal 0-3.0 Nucleated Red Blood Cell % 0.0 % Normal 0-0 Neutrophils # 6.4 10 Normal 1.5-8.5 Lymph # 1.3 10 Low 1.5-5.0 [place] # 0.9 10 High 0.0-0.8 Eos # 0.1 10 Normal 0.0-0.5 Baso # 0.0 10 Normal 0.0-0.2 Laboratory test finding 08/29/2020 [facility] [address] [place] [address] (315)- - Erythrocyte Sedimentation Rate 7 mm/hr Normal 0-20 Comprehensive Metabolic Profil 08/29/[address] [address] (315)- - Glucose, Fasting 106 mg/dL High [...] Ratio 1.2 Normal Laboratory test finding 08/26/2020 [address] [place] [address] (315)- - Erythrocyte Sedimentation Rate <pending> Xray 08/26/2020 [facility] nter (315)- - Chest x-ray <pending> Order 08/26/2020 [facility] nter EKG <pending> 1 THERAPUTIC HUMAN INR [...] Little GFR Left 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 Z01.818 Encounter for other preprocedural examination M16.12 Unilateral primary osteoarth ritis, left hip Office Visit 07/20/2020 2:00p [place] Elliott MD M1 6.12 Unilateral primary osteoarthritis, [...] Z01.818 Encounter for other preprocedura l examination Junaid Mariscal. 09/01/2020 M16.12 Unilateral primary osteoarthriti s, left hip Kevin Mariscal 07/20/2020 M16.12 Unilateral primary osteoarthriti s, left hip Paras Elliott MD 04/01/2020 M16.12 Unilateral primary osteoarthriti s, left hip D. Micheal Elliott MD Plan of Treatment Future Appointment(s):* 10/17/2020 1:00 pm - Kelvin Herbert PA-C at [place] 09/23/2020 - Kelvin Herbert PA-C* Z47.1 Aftercare [...] SURGERY NO AUTH REQUIRED FOR TOTAL LEFT HIP([id number]) TO SURGERY NT Created [address] [place] [address] [phone] Kelvin Herbert PA-C SURGERY NO AUTH REQUIRED FOR LEFT TOTAL HIP([id number]) TO SURGERY NT Created [address] [place] [address] [phone]
--- OUTSIDE RECORDS SUMMARY | 2020-09-30 14:26 | CCD | Continuity of Care Document ---
Author Author Silvestre ELLIOTT MD Organization Unknown Address [address] [place] [address], [address] [place] [address] Phone [phone] Care Team Providers Care Director Of Curriculum And Instruction Name Role Phone Melody Oakley JESSICA AUTM [phone] Problems Description No Information Available Social [...] bedtime Unknown Magnesium Oxide 250mg Tablets Unknown [place] 3 1000mg Capsules 1 by mouth every [...] Result H/L Range Note Prothrombin Time/Inr 09/01/2020 [facility] entr [address] [place] [address] (315)- - Prothrombin Time 13.2 seconds Normal 12.5-14.3 Inr 0.98 Normal 1 CBC With Differential 08/29/2020 [facility] [address] [place] [address] (315)- - White Blood Count 8.7 10 [...] 36.0-66.0 Lymph % 15.3 % Low 24.0-44.0 [place] % 10.0 % High 0.0-5.0 Eos % 0.6 % Normal 0.0-3.0 Baso % 0.3 % Normal 0.0-1.0 Immature Granulocyte % 0.2 % Normal 0-3.0 Nucleated Red Blood Cell % 0.0 % Normal 0-0 Neutrophils # 6.4 10 Normal 1.5-8.5 Lymph # 1.3 10 Low 1.5-5.0 [place] # 0.9 10 High 0.0-0.8 Eos # 0.1 10 Normal 0.0-0.5 Baso # 0.0 10 Normal 0.0-0.2 Laboratory test finding 08/29/2020 [facility] [address] [place] [address] (315)- - Erythrocyte Sedimentation Rate 7 mm/hr Normal 0-20 Comprehensive Metabolic Profil 08/29/2020 [facility] [address] [place] [address] (315)- - Glucose, Fasting 106 mg/dL High [...] Ratio 1.2 Normal Laboratory test finding 08/26/2020 [facility] [address] [place] [address] (315)- - Erythrocyte Sedimentation Rate <pending> Xray 08/26/2020 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 Z01.818 Encounter for other preprocedural examination M16.12 Unilateral primary osteoarth ritis, left hip Office Visit 07/20/2020 2:00p [place] Paras Elliott MD M1 6.12 Unilateral primary osteoarthritis, left hip Assessments Date Code Description Provider 09/01/2020 Z01.818 Encounter for other preprocedura l examination Kevin Mariscal 09/01/2020 M16.12 Unilateral primary osteoarthriti s, left hip Raya MariscalAKenya 07/20/2020 M16.12 Unilateral primary osteoarthriti s, left hip Paras Elliott MD 04/01/2020 M16.12 Unilateral primary osteoarthriti s, left hip Paras Elliott MD Plan of Treatment Future Appointment(s):* 09/20/2020 3:30 pm - Kelvin Herbert PA-C at [place] 07/20/2020 - Paras Elliott MD* M16.12 Unilateral primary osteoarthritis, left hip* Follow up:* post op Functional Status Description No Information Available Mental Status Description No Information Available Referrals Refer to Dr Reason for Referral Status Appt Date Kelvin Herbert PA-C SURGERY NO AUTH REQUIRED FOR TOTAL LEFT HIP([id number]) TO SURGERY NT Created [address] [place] [address] [phone] Kelvin Herbert PA-C SURGERY NO AUTH REQUIRED FOR LEFT TOTAL HIP([id number]) TO SURGERY NT Created [facility] [place] [address] [phone]
--- OUTSIDE RECORDS SUMMARY | 2020-09-30 14:26 | CCD ---
Author Author [facility] Organization [facility] Address Unknown Phone Unavailable Care Team Providers Care Compliance Investigator Name Role Phone Scordo, M Melody PA [...] M Melody PA Unavailable Unavailable Scordo, M Mleody PA Unavailable Unavailable Scordo, M Melody PA Unavailable Unavailable Scordo, M Meloyd PA Unavailable Unavailable Scordo, M Melody PA Unavailable Unavailable MCELHERAN, JUSTINA PA Unavailable Unavailable MCELHERAN, JUSTINA PA Unavailable Unavailable MCELHERAN, JUSTINA PA Unavailable Unavailable MCELHERANTONIO, JUSTINA PA Unavailable Unavailable MCELHERANTONIO, JUSTINA PA Unavailable Unavailable MCELHERAN, JUSTINA PA Unavailable Unavailable MCELHERAN, JUSTINA PA Unavailable Unavailable MCELHERANTONIO, JUSTINA PA Unavailable Unavailable MCELHERJUSTINA ALVAREZ PA Unavailable Unavailable MCELHERJUSTINA ALVAREZ PA Unavailable Unavailable MCELHERANTONIO, JUSTINA PA Unavailable Unavailable MCELHERANTONIO, JUSTINA PA Unavailable Unavailable MCELHERAN, JUSTINA PA Unavailable Unavailable MCELHERAN, JUSTINA PA Unavailable Unavailable MCELHERANTONIO, JUSTINA PA Unavailable Unavailable MCELHERANTONIO, JUSITNA PA Unavailable Unavailable MCELHERANTONIO, JUSTINA PA Unavailable Unavailable MCELHERANTONIO, JUSTINA PA Unavailable Unavailable MCELHERANTONIO, JUSTINA PA Unavailable Unavailable MCELHERANTONIO, JUSTINA PA Unavailable Unavailable MCELHERAN, JUSTINA PA Unavailable Unavailable MCELHERANTONIO, JUSTINA PA Unavailable Unavailable MCELHERANTONIO, JUSTINA PA Unavailable Unavailable MCELHERANTONIO JUSTINA PA Unavailable Unavailable MCELHERAN, JUSTINA PA Unavailable Unavailable MCELHERAN, JUSTINA PA Unavailable Unavailable MCELHERAN, JUSTINA PA Unavailable Unavailable MCELHERAN, JUSTINA PA Unavailable Unavailable Pleskach, Lani ATHLETIC AGENT Unavailable Unavailable Pleskach, Lani ATHLETIC AGENT Unavailable Unavailable Pleskach, Lani ATHLETIC AGENT Unavailable Unavailable Pleskach, Lani ATHLETIC AGENT Unavailable Unavailable Pleskach, Lani ATHLETIC AGENT Unavailable Unavailable Pleskach, Lani ATHLETIC AGENT Unavailable Unavailable Pleskach, Lani ATHLETIC AGENT Unavailable Unavailable Pleskach, Lani ATHLETIC AGENT Unavailable Unavailable Pleskach, Lani ATHLETIC AGENT Unavailable Unavailable Pleskach, Lani ATHLETIC AGENT Unavailable Unavailable Pleskach, Lani ATHLETIC AGENT Unavailable Unavailable Pleskach, Lani ATHLETIC AGENT Unavailable Unavailable Pleskach, Lani ATHLETIC AGENT Unavailable Unavailable Pleskach, Lani ATHLETIC AGENT Unavailable Unavailable Pleskach, Lani ATHLETIC AGENT Unavailable Unavailable Pleskach, Lani ATHLETIC AGENT Unavailable Unavailable Pleskach, Lani ATHLETIC AGENT Unavailable Unavailable Pleskach, Lani ATHLETIC AGENT Unavailable Unavailable Pleskach, Lani ATHLETIC AGENT Unavailable Unavailable Pleskach, Lani ATHLETIC AGENT Unavailable Unavailable Pleskach, Lani ATHLETIC AGENT Unavailable Unavailable Pleskach, Lani ATHLETIC AGENT Unavailable Unavailable Pleskach, Lani ATHLETIC AGENT Unavailable Unavailable Pleskach, Lani ATHLETIC AGENT Unavailable Unavailable Pleskach, Lani ATHLETIC AGENT Unavailable Unavailable Pleskach, Lani ATHLETIC AGENT Unavailable Unavailable Pleskach, Lani ATHLETIC AGENT Unavailable Unavailable Pleskach, Lani ATHLETIC AGENT Unavailable Unavailable Pleskach, Lani ATHLETIC AGENT Unavailable Unavailable Pleskach, Lani ATHLETIC AGENT Unavailable Unavailable Herbert, M Barratt PA Unavailable [...] Unavailable Herbert, M Barratt PA Unavailable Unavailable Petrancosta, Chambers Mavis PA-C Unavailable Unavailabl e Petrancosta, Chambers Mavis PA-C Unavailable Unavailabl e Petrancosta, Chambers Mavis PA-C Unavailable Unavailabl e Petrancosta, Chambers Mavis PA-C Unavailable Unavailabl e Petrancosta, Chambers Mavis PA-C Unavailable Unavailabl e Petrancosta, Chambers Mavis PA-C Unavailable Unavailabl e Petrancosta, Chambers Mavis PA-C Unavailable Unavailabl e Petrancosta, Chambers Mavis PA-C Unavailable Unavailabl e Petrancosta, Chambers Mavis PA-C Unavailable Unavailabl e Petrancosta, Chambers Mavis PA-C Unavailable Unavailabl e Petrancosta, Chambers Mavis PA-C Unavailable Unavailabl e Petrancosta, Chambers Mavis PA-C Unavailable Unavailabl e Petrancosta, Chambers Mavis PA-C Unavailable Unavailabl e Petrancosta, Chambers Mavis PA-C Unavailable Unavailabl e Petrancosta, Chambers Mavis PA-C Unavailable Unavailabl e Petrancosta, Chambers Mavis PA-C Unavailable Unavailabl e Petrancosta, Chambers Mavis PA-C Unavailable Unavailabl e Petrancosta, Chambers Mavis PA-C Unavailable Unavailabl e Petrancosta, Chambers Mavis PA-C Unavailable Unavailabl e Petrancosta, Chambers Mavis PA-C Unavailable Unavailabl e Petrancosta, Chambers Mavis PA-C Unavailable Unavailabl e Petrancosta, Chambers Mavis PA-C Unavailable Unavailabl e Petrancosta, Chambers Mavis PA-C Unavailable Unavailabl e Kd Herbert PA Unavailable Unavailable Kd Herbert PA Unavailable Unavailable Kd Herbert PA Unavailable Unavailable Kd Herbert PA Unavailable Unavailable Kd Herbert PA Unavailable Unavailable Kd Herbert PA Unavailable Unavailable Kd Herbert PA Unavailable Unavailable Kd Herbert PA Unavailable Unavailable Kd Herbert PA Unavailable Unavailable Kd Herbert PA Unavailable Unavailable Kd Herbert PA Unavailable Unavailable Kd Herbert PA Unavailable Unavailable Kd Herbert PA Unavailable Unavailable Kd Herbert PA Unavailable Unavailable Kd Herbert PA Unavailable Unavailable Kd Herbert PA Unavailable Unavailable Kd Herbert PA Unavailable Unavailable Herbert, M Barratt PA Unavailable Unavailable Herbert, M Barratt PA Unavailable Unavailable Herbert, M Barratt PA Unavailable Unavailable Herbert, M Barratt PA Unavailable Unavailable Herbert, M Barratt PA Unavailable Unavailable Herbert, M Barratt PA Unavailable Unavailable Herbert, M Barratt PA Unavailable Unavailable Herbert, M Barratt PA Unavailable Unavailable Piedad, M Barratt PA Unavailable Unavailable Piedad M Kelvin PA Unavailable Unavailable Aviva Elliott MD Unavailable Unavailable Aviva Elliott MD Unavailable Unavailable VanurmilaamAviva MD Unavailable Unavailable VaneenpetraamAviva MD Unavailable Unavailable VaneenpetraamAviva MD Unavailable Unavailable VanAviva rodgers MD Unavailable [...] is protected by Article 27-F of the [facility] Public Health law. If you continue you may have access to information: Regarding HIV / AIDS; Provided by facilities licensed or operated by the [facility] Office of Mental Health; or Provided by the [facility] Office for People With Developmental Disabilities. If such information is present, then the following [facility] mandated warning applies: This information has been [...] law may result in a fine or prison sentence or both. A general authorization for the release of medical or other information is NOT sufficient authorization for further disc losure. Family History Family Member Name Family Member Gender Family Member Status Date o f Status Description Data Source(s) Unknown Female Problem [facility] ([facility]) Unknown Unknown Problem [facility] ([facility] Encounters Encounter Providers Location Date Indications Data Source(s ) Office Visit Attender: Kelvin LOPEZ Physical Therapy 01:15:00 PM EST [facility] ([facility]) Outpatient Attender: Mavis Gillespie PA-C Main Office 09/19/2020 09:45:00 AM EST [facility] ([facility] Office Visit Attender: JUSTINA LOPEZ Physical Therapy 09/01/2020 11:45:00 AM EST [facility] ([facility]) Outpatient Attender: Mavis Gillespie PA-C Main Office 08/29/2020 12:45:00 PM EST [facility] ([facility] Outpatient Attender: Aviva Elliott MD Physical Therap y 07/20/2020 01:00:00 PM EST [facility] ([facility]) Outpatient Attender: Mavis Gillespie PA-C Main Office 06/09/2020 09:15:00 AM EST [facility] ([facility] Outpatient Attender: Mavis Gillespie PA-C Main Office 04/06/2020 09:15:00 AM EDT [facility] ([facility] Outpatient Attender: Kelvin LOPEZ Physical Therapy 02:15:00 PM EDT [facility] ([facility]) Outpatient Attender: Melody LOPEZ Main Office 01/28/2020 11:40:00 AM EDT [facility] ([facility] [place] [address] [address] 01/18/2020 12:00:00 AM EDT eCW1 ([facility]) Outpatient Referrer: Kelvin LOPEZ 01/12/2020 04:54:0 0 PM EDT [facility] Outpatient Referrer: Kelvin LOPEZ 01/12/2020 03:13:0 0 PM EDT [facility] Outpatient Referrer: Kelvin LOPEZ 01/08/2020 02:27:0 0 PM EDT [facility] Outpatient Referrer: Kelvin LOPEZ 01/07/2020 12:01:0 0 PM EDT [facility] Outpatient Attender: Lani Borges [facility] Main Office 12/30/2019 0 2:30:00 PM EDT [facility] ([facility] Immunizations Vaccine Date Status Description Data Source(s) New in 2013. IIV4 05/18/2020 11:02:00 AM EDT completed [facility] ([facility] Medications Medication Brand Name Start Date Product Form Dose Route Admi nistrative Instructions Pharmacy Instructions Status Indications Reaction Description Data Source(s) 5-325 mg 09/25/2020 12:00:00 AM EST tablet 30 TAKE ONE TO TWO TABLETS BY MOUTH EVERY 4 HOURS NEEDED FOR PAIN, MAXIMUM DAILY DOSE = 8 TABLETS TAKE ONE TO TWO TABLETS BY MOUTH EVERY 4 HOURS NEEDED FOR PAIN, MAXIMUM DAILY DOSE = 8 TABLETS SOLD: 09/25/2020 [facility] Cephalexin 500 MG Oral Tablet Cephalexin 09/23/2020 12:00:00 AM EST active [facility] ([facility]) Cephalexin 500 MG Oral Capsule CEPHALEXIN 09/23/2020 12:00:00 AM EST capsule 40 TAKE ONE CAPSULE BY MOUTH FOUR TIMES A DAY FOR 10 DAYS TAKE ONE CAPSULE BY MOUTH FOUR TIMES A DAY FOR 10 DAYS SOLD: 09/23/2020 [facility] 50 mg 09/16/2020 12:00:00 AM EST tablet 30 TAKE ONE TABLET BY MOUTH AT BEDTIME NEEDED TAKE ONE TABLET BY MOUTH AT BEDTIME NEEDED SOLD: [facility] Hydroxyzine Hydrochloride 50 MG Oral Tablet Hydroxyzine HCL 09/15/2020 12:00:00 AM EST ORAL completed [facility] ([facility] Amlodipine 2.5 MG Oral Tablet Amlodipine Besylate 09/13/2020 12:00: 00 AM EST ORAL active [facility] ([facility] Acetaminophen 500 MG Oral Tablet [Tylenol] Tylenol Extra Str ength 09/13/2020 12:00:00 AM EST ORAL active M [facility] ([facility] Aspirin 81 MG Delayed Release Oral Tablet Aspir-81 09/13/2020 1 2:00:00 AM EST ORAL active Aspir-81 [facility] ([facility] 2 % 08/30/2020 12:00:00 AM EST ointment 22 APPLY A PEA SIZED AMOUNT TO NASAL PASSAGES THREE TIMES A DAY FOR 5 DAYS PRIOR TO SURGERY APPLY A PEA SIZED AMOUNT TO NASAL PASSAGES THREE TIMES A DAY FOR 5 DAYS PRIOR TO SURGERY SOLD: 08/30/2020 [facility] Mupirocin 0.02 MG/MG Topical Ointment Mupirocin 08/29/2020 12:00:00 AM EST active [facility] chlorhexidine gluconate 40 MG/ML Medicated Liquid Soap [Hibi clens] Hibiclens 08/29/2020 12:00:00 AM EST active [facility] ([facility]) 5 mg 08/11/2020 12:00:00 AM [...] Besylate 06/09/2020 12:00:00 A M EST ORAL completed [facility] ([facility] Donepezil hydrochloride [...] FOR BLOOD PRESSURE SOLD: 11/11/2019 [facility] 10 mg 08/14/2019 12:00:00 AM EST tablet 90 TAKE ONE TABLET BY MOUTH EVERY DAY FOR BLOOD PRESSURE TAKE ONE TABLET BY MOUTH EVERY DAY FOR BLOOD PRESSURE SOLD: 08/15/2019 [facility] 20 mg 05/12/2019 12:00:00 AM [...] FOR SCIATICA SYMPTOMS SOLD: 11/11/2019 [facility] 300 mg 02/09/2019 12:00:00 AM EDT capsule 90 TAKE ONE CAPSULE BY MOUTH EVERY EVENING FOR SCIATICA SYMPTOMS TAKE ONE CAPSULE BY MOUTH EVERY EVENING FOR SCIATICA SYMPTOMS SOLD: 08/15/2019 [facility] Insurance Providers Payer name Policy type / Coverage type Policy ID Covered green party ID Covered green party's relationship to nam Policy Nam Plan Information [facility] [id number] SP [id number] [employer] JANIE DIV [id number] SP [id number] MEDICARE [id number] SP [id number] [employer] JANIE DIV [id number] SP [id number] [facility] [id number] SP [id number] MEDICARE [id number] SP [id number] A MEDICARE C [id number] S [id number] EMPIRE ([facility]) O [id number] S [id number] [employer] JANIE DIV UNAVAILABLE UNAVAILABLE ANS-Medicare Part B [id number] ANSI-Commercial [id number] [facility] Part B [id number] Self [id number] [place] Primary [id number] Self [id number] ANSI-Commercial [id number] ANS-Medicare Part B [id number] ANS-Medicare Part B [id number] ANSI-Commercial [id number] ANSI-Commercial [id number] ANSI-Medicare Part B [id number] [employer] Medigap Part B [id number] Self [id number] Medicare [place] Medicare Primary [id number] Self [id number] [place] [employer] Medigap Part B [id number] Self [id number] [place] Medicare Primary [id number] Self [id number] [place] [employer] Medigap Part B [id number] Self [id number] Medicare [place] Medicare Primary [id number] Self [id number] [place] [employer] Medigap Part B [id number] Self [id number] [place] Medicare Primary [id number] Self [id number] [place] [employer] Medigap Part B [id number] Self [id number] [place] Medicare Primary [id number] Self [id number] [place] [employer] Medigap Part B [id number] Self [id number] Medicare [place] Medicare Primary [id number] Self [id number] Emp/[employer] Medigap Part B [id number] Self [id number] Medicare [place] Medicare Primary [id number] Self [id number] Emp/[employer] Medigap Part B [id number] Self [id number] [place] Medicare Primary [id number] Self [id number] UNITED HEALTHCARE [id number] SP [id number] [employer] EMPIRE JANIE DIV [id number] SP [id number] Emp/[employer] Medigap Part B [id number] Self [id number] Medicare [place] Medicare Primary [id number] Self [id number] Emp/[employer] Medigap Part B Self Medicare [place] Medicare Primary Self [place] [employer] Medigap Part B Self [place] Medicare Primary Self MEDICARE P [id number] S [id number] A [id number] A Surgeries/Procedures Procedure Description Date Indications Data Source(s) ARTHRP ACETBLR/PROX FEM PROSTC AGRFT/ALGRFT 09/05/2020 12:00:00 AM EST [facility] ([facility]) ARTHRP ACETBLR/PROX FEM PROSTC AGRFT/ALGRFT 09/05/2020 12:00:00 AM EST [facility] ([facility] X-Ray Hip Unilateral With Pelvis 2-3 Views 01/06/2020 12:00:00 AM EDT [facility] ([facility] Results ID Date Data Source [id number] 09/01/2020 04:35:00 PM EST [facility] ([facility] [...] MYOCARDIAL INFARCTION 2.5-3.5 ID Date Data Source [id number] 09/01/2020 02:40:00 PM EST [facility] ([facility]) Name Value Range Interpretation Code Description Data Di rce(s) Supporting Document(s) Prothrombin Time 13.2 s 12.5-14.3 [facility] ([facility]) Inr 0.98 [facility] ([facility]) THERAPUTIC HUMAN INR VALUES INDICATIONS NORMAL RANGES PROPHYLAXIS/TREATMENT OF: VENOUS THROMBOSIS 2.0-3.0 PULMONARY EMBOLISM 2.0-3.0 PREVENTION OF SYSTEMIC EMBOLISM FROM: TISSUE HEART VALVES 2.0-3.0 ACUTE MYOCARDIAL INFARCTION 2.0-3.0 VALVULAR HEART DISEASE 2.0-3.0 ATRIAL FIBRILLATION 2.0-3.0 MECHANICAL VALVES(HIGH RISK) 2.5-3.5 RECURRENT MYOCARDIAL INFARCTION 2.5-3.5 ID Date Data Source [id number] 08/31/2020 09:00:00 AM EST [facility] Name Value Range Interpretation Code Description Data Di rce(s) Supporting Document(s) SARS coronavirus 2 RNA Not Detected [facility] [place] This lab was ordered by [facility] and reported by [facility]. ID Date Data Source [id number] 08/29/2020 02:59:00 PM EST [facility] ([facility]) Name Value Range Interpretation Code Description Data Di rce(s) Supporting Document(s) Glucose, Fasting 106 mg/dL 70-100 [facility] ([facility]) Blood Urea Nitrogen 28 mg/dL 7-18 [facility] ([facility]) Sodium Level 141 meq/L 136-145 [facility] ([facility] ) Creatinine For GFR 1.10 mg/dL 0.70-1.30 [facility] ([facility]) Glomerular Filtration Rate Laboratory test result [facility] ([facility]) <content>Units are mL/min/1.73 m2</content>
<content></content>
<content>Chronic Kidney Disease Staging per NKF:</content>
<content></content>
<content>Stage I & II GFR >=60 Normal to Mildly Decreased</content>
<content>Stage III GFR 30- 59 Moderately Decreased</content>
<content>Stage IV GFR 15-29 Severely Decreased</content>
<content>Stage V GFR <15 Very Little GFR Left</content>
<content>ESRD GFR <15 on TRANSPORTATION INSPECTOR</content>
<content></content> Carbon Dioxide Level 32 meq/L 21-32 [facility] Chloride Level 102 meq/L 98-107 [facility] ([facility] Potassium Serum 4.3 meq/L 3.5-5.1 [facility] ([facility]) Calcium Level 9.3 mg/dL 8.8-10.2 [facility] ([facility]) Anion Gap 7 meq/L 8-16 [facility] ([facility] Ast/Sgot 12 U/L 7-37 [facility] ([facility] Bilirubin,Total 0.7 mg/dL 0.2-1.0 [facility] ([facility]) Alt/SGPT 26 U/L 12-78 [facility] ([facility]) Alkaline Phosphatase 53 U/L 45-117 [facility] Total Protein 7.4 GM/DL 6.4-8.2 [facility] ([facility]) Albumin/Globulin Ratio 1.2 [facility] ([facility]) Albumin 4.0 GM/DL 3.2-5.2 [facility] ([facility] ID Date Data Source [id number] 08/29/2020 02:59:00 PM EST [facility] ([facility]) Name Value Range Interpretation Code Description Data Di rce(s) Supporting Document(s) Erythrocyte sedimentation rate by Westergren method 7 mm/hr 0-20 [facility] ([facility]) ID Date Data Source [id number] 08/29/2020 02:59:00 PM EST [facility] ([facility]) Name Value Range Interpretation Code Description Data Di rce(s) Supporting Document(s) White Blood Count 8.7 10 4.0-10.0 [facility] ([facility] Hemoglobin 15.1 g/dL 13.5-17.5 [facility] ([facility] Red Blood Count 5.12 10 4.30-6.10 [facility] ([facility]) Hematocrit 45.5 % 42.0-52.0 [facility] ([facility] Mean Corpuscular Volume 88.9 fl 80.0-96.0 M EDENT ([facility]) Mean Corpuscular Hemoglobin 29.5 pg 27.0-33.0 [facility] ([facility]) Mean Corpuscular HGB Conc 33.2 g/dL 32.0-36.5 [facility] ([facility]) Red Cell Distribution Width 14.2 % 11.5-14.5 [facility] ([facility]) Platelet Count, Automated 204 10 150-450 [facility] ([facility]) Neutrophils % 73.6 % 36.0-66.0 [facility] ([facility]) Lymph % 15.3 % 24.0-44.0 [facility] ([facility]) [place] % 10.0 % 0.0-5.0 [facility] ([facility]) Immature Granulocyte % 0.2 % 0-3.0 [facility] ([facility]) Eos % 0.6 % 0.0-3.0 [facility] ([facility]) Baso % 0.3 % 0.0-1.0 [facility] ([facility]) Nucleated Red Blood Cell % 0.0 % 0-0 [facility] ([facility]) Lymph # 1.3 10 1.5-5.0 [facility] ([facility]) Neutrophils # 6.4 10 1.5-8.5 [facility] [place] # 0.9 10 0.0-0.8 [facility] ([facility] Baso # 0.0 10 0.0-0.2 [facility] ([facility] Eos # 0.1 10 0.0-0.5 [facility] ([facility] ID Date Data Source [id number] 08/29/2020 02:59:00 PM EST [facility] ([facility] Name Value Range Interpretation Code Description Data Di rce(s) Supporting Document(s) Glucose, Fasting 106 mg/dL 70-100 [facility] ([facility] Creatinine For GFR 1.10 mg/dL 0.70-1.30 [facility] ([facility] Blood Urea Nitrogen 28 mg/dL 7-18 [facility] ([facility] Glomerular Filtration Rate Laboratory test result [facility] ([facility] <content>Units are mL/min/1.73 m2</content>
<content></content>
<content>Chronic Kidney Disease Staging per NKF:</content>
<content></content>
<content>Stage I & II GFR >=60 Normal to Mildly Decreased</content>
<content>Stage III GFR 30- 59 Moderately Decreased</content>
<content>Stage IV GFR 15-29 Severely Decreased</content>
<content>Stage V GFR <15 Very Little GFR Left</content>
<content>ESRD GFR <15 on TRANSPORTATION INSPECTOR</content>
<content></content> Sodium Level 141 meq/L 136-145 [facility] ([facility] Chloride Level 102 meq/L 98-107 [facility] ([facility] Potassium Serum 4.3 meq/L 3.5-5.1 [facility] ([facility] Carbon Dioxide Level 32 meq/L 21-32 [facility] Calcium Level 9.3 mg/dL 8.8-10.2 [facility] ([facility] Anion Gap 7 meq/L 8-16 [facility] ([facility] Alt/SGPT 26 U/L 12-78 [facility] Ast/Sgot 12 U/L 7-37 [facility] Bilirubin,Total 0.7 mg/dL 0.2-1.0 [facility] ([facility] Alkaline Phosphatase 53 U/L 45-117 [facility] Total Protein 7.4 GM/DL 6.4-8.2 [facility] ([facility] Albumin/Globulin Ratio 1.2 [facility] ([facility] Albumin 4.0 GM/DL 3.2-5.2 [facility] ID Date Data Source [id number] 08/29/2020 02:59:00 PM EST [facility] ([facility] Name Value Range Interpretation Code Description Data Id rce(s) Supporting Document(s) Erythrocyte sedimentation rate by 2H Westergren method 7 mm/hr 0-2 0 [facility] ([facility] ID Date Data Source [id number] 08/29/2020 02:59:00 PM EST [facility] ([facility] Name Value Range Interpretation Code Description Data Di rce(s) Supporting Document(s) White Blood Count 8.7 10 4.0-10.0 [facility] ([facility] Red Blood Count 5.12 10 4.30-6.10 [facility] ([facility] Mean Corpuscular Volume 88.9 fl 80.0-96.0 M [facility] ([facility] Hemoglobin 15.1 g/dL 13.5-17.5 [facility] ([facility] Hematocrit 45.5 % 42.0-52.0 [facility] Mean Corpuscular Hemoglobin 29.5 pg 27.0-33.0 [facility] ([facility] Red Cell Distribution Width 14.2 % 11.5-14.5 [facility] ([facility] Mean Corpuscular HGB Conc 33.2 g/dL 32.0-36.5 [facility] ([facility] Lymph % 15.3 % 24.0-44.0 [facility] Platelet Count, Automated 204 10 150-450 [facility] ([facility] Neutrophils % 73.6 % 36.0-66.0 [facility] ([facility] Eos % 0.6 % 0.0-3.0 [facility] [place] % 10.0 % 0.0-5.0 [facility] Nucleated Red Blood Cell % 0.0 % 0-0 [facility] ([facility] Baso % 0.3 % 0.0-1.0 [facility] Immature Granulocyte % 0.2 % 0-3.0 [facility] ([facility] Lymph # 1.3 10 1.5-5.0 [facility] Neutrophils # 6.4 10 1.5-8.5 [facility] ([facility] [place] # 0.9 10 0.0-0.8 [facility] ([facility] Baso # 0.0 10 0.0-0.2 [facility] ([facility] Eos # 0.1 10 0.0-0.5 [facility] ([facility] ID Date Data Source [id number] 08/26/2020 11:09:00 AM EST [facility] ([facility]) Name Value Range Interpretation Code Description Data Di rce(s) Supporting Document(s) Erythrocyte sedimentation rate by Westergren method Laboratory test result [facility] ([facility]) ID Date Data Source [id number] 08/26/2020 11:07:00 AM EST [facility] ([facility]) Name Value Range Interpretation Code Description Data Di rce(s) Supporting Document(s) EKG Laboratory test result [facility] ([facility]) ID Date Data Source [id number] 08/26/2020 11:07:00 AM EST [facility] ([facility]) Name Value Range Interpretation Code Description Data Di rce(s) Supporting Document(s) Chest x-ray Laboratory test result MEDEN T ([facility]) ID Date Data Source [id number] 07/21/2020 01:05:00 PM EST [facility] ([facility]) Name Value Range Interpretation Code Description Data Di rce(s) Supporting Document(s) Laboratory test finding (navigational concept) Laboratory test result [facility] ([facility]) ID Date Data Source [id number] 06/07/2020 08:10:00 AM EST [facility] ([facility] Name Value Range Interpretation Code Description Data Di rce(s) Supporting Document(s) White Blood Count 4.8 10 4.0-10.0 [facility] ([facility] Red Blood Count 4.95 10 4.30-6.10 [facility] ([facility] Hematocrit 44.7 % 42.0-52.0 [facility] ([facility] Hemoglobin 14.2 g/dL 13.5-17.5 [facility] ([facility] Mean Corpuscular Volume 90.3 fl 80.0-96.0 M EDENT ([facility] Mean Corpuscular Hemoglobin 28.7 pg 27.0-33.0 [facility] ([facility] Red Cell Distribution Width 14.5 % 11.5-14.5 [facility] ([facility] Mean Corpuscular HGB Conc 31.8 g/dL 32.0-36.5 [facility] ([facility] Platelet Count, Automated 215 10 150-450 [facility] ([facility] Lymph % 35.7 % 24.0-44.0 [facility] ([facility] Neutrophils % 48.8 % 36.0-66.0 [facility] ([facility] [place] % 11.2 % 0.0-5.0 [facility] ([facility] Eos % 3.1 % 0.0-3.0 [facility] ([facility] Baso % 1.2 % 0.0-1.0 [facility] ([facility] Nucleated Red Blood Cell % 0.0 % 0-0 MED E[facility] ([facility] Immature Granulocyte % 0.0 % 0-3.0 [facility] ([facility] Lymph # 1.7 10 1.5-5.0 [facility] ([facility] [place] # 0.5 10 0.0-0.8 [facility] ([facility] Neutrophils # 2.4 10 1.5-8.5 [facility] ([facility] Baso # 0.1 10 0.0-0.2 [facility] ([facility] Eos # 0.2 10 0.0-0.5 [facility] ([facility] ID Date Data Source [id number] 06/07/2020 08:10:00 AM EST [facility] ([facility] Name Value Range Interpretation Code Description Data Di e(s) Supporting Document(s) Triglycerides Level 103 mg/dL [facility] ([facility] Cholesterol Level 159 mg/dL [facility] ([facility] LDL Cholesterol 92 mg/dL [facility] ([facility] Non-HDL-C 113 mg/dL [facility] ([facility] HDL Cholesterol 46 mg/dL [facility] ([facility] Cholesterol Risk Ratio 3.456 [facility] ([facility] ID Date Data Source [id number] 06/07/2020 08:10:00 AM EST [facility] ([facility] Name Value Range Interpretation Code Description Data [facility](s) Supporting Document(s) Glucose, Fasting 99 mg/dL 70-100 [...] Little GFR Left</content>
<content>ESRD GFR <15 on TRANSPORTATION INSPECTOR</content>
<content></content> Sodium Level 140 meq/L 136-145 [facility] ([facility] Chloride Level 105 meq/L 98-107 [facility] ([facility] Potassium Serum 4.5 meq/L 3.5-5.1 [facility] ([facility] Anion Gap 4 meq/L 8-16 [facility] ([facility] Calcium Level 8.5 mg/dL 8.8-10.2 [facility] ([facility] Carbon Dioxide Level 31 meq/L 21-32 [facility] ([facility] Alt/SGPT 21 U/L 12-78 [facility] ([facility] Ast/Sgot 15 U/L 7-37 [facility] ([facility] Bilirubin,Total 0.7 mg/dL 0.2-1.0 [facility] ([facility] Total Protein 7.0 GM/DL 6.4-8.2 [facility] ([facility] Alkaline Phosphatase 46 U/L 45-117 [facility] ([facility] Albumin/Globulin Ratio 1.3 [facility] ([facility] Albumin 3.9 GM/DL 3.2-5.2 [facility] ([facility] ID Date Data Source [id number] 01/29/2020 02:10:00 PM EDT [facility] ([facility] Rhoades [...] % 11.5-14.5 [facility] ([facility] [place] % 10.0 % 0.0-5.0 [facility] (Moira israel [...] 10 1.5-5.0 [facility] ([facility] [place] # 0.5 10 0.0-0.8 [facility] ([facility] Neutrophils # 3.1 10 1.5-8.5 [facility] ([facility] Baso # 0.0 10 0.0-0.2 [facility] ([facility] Eos # 0.1 10 0.0-0.5 [facility] ([facility] ID Date Data Source [id number] 01/29/2020 02:10:00 PM EDT [facility] ([facility] Name Value Range Interpretation Code Description Data Di rce(s) Supporting Document(s) Thyrotropin [Units/volume] in Serum or Plasma 1.180 uIU/ML 0.358-3.74 0 [facility] ([facility] ID Date Data Source [id number] 01/29/2020 02:10:00 PM EDT [facility] ([facility]oades [...] Little GFR Left</content>
<content>ESRD GFR <15 on TRANSPORTATION INSPECTOR</content>
<content></content> Anion Gap 5 meq/L 8-16 MED[facility] [...] [facility] ID Date Data Source [id number] 01/12/2020 12:00:[address] [facility] Patient Name: BAKARI [id number] [facility] Date of : 1940 Date of Exam: 01/12/2020[place] Mccl[place] [id number]#: Fax: [phone] EXAM: ARTHROCENTESIS LTHIP-ASPIR / INJ STEROID/PAIN MEDSCLINICAL INFORMATION: Unilateral primary osteoarthritis of the left hip.The procedure was performed by Anat Fisher [facility], under the directsupervision of Dr. Barton.The [...] a 75% reduction in radiation.Dictated by SUMANTH Reddy, with Dr. Barton.Alicia Barton, DIOMEDES/Angelito you for referring BAKARI HARDY to our office. Electronically Signed - ALICIA BARTON DO 01/13/20 17:09 Name Value Range Interpretation Code Description Data Di rce(s) Supporting Document(s) ID Date Data Source [id number] 01/12/2020 12:00:[address] [facility] Patient Name: BAKARI [id number] [facility] Date of : 1940 Date of Exam: 01/12/2020[place], [place] [id number]#: Fax: [phone] EXAM: ARTHROCENTESIS LTHIP-ASPIR / INJ [...] 75% reduction in radiation.Dictated by Anat Fisher, [facility], with Dr. Barton.DIOMEDES Sullivan/Angelito you for referring BAKARI HARDY to our office. Electronically Signed - ALICIA BARTON DO 01/13/20 17:09 Name Value Range Interpretation Code Description Data Di rce(s) Supporting Document(s) Procedure Social History Code Duration Value Status Description Data Source(s ) Smoking 09/19/2020 12:00:00 AM EST Patient has never smoked co mpleted Patient has never smoked [facility] ([facility] Vital Signs ID Date Data Source [id number] Name Value Range Interpretation Code Description Data Source(s) Body mass index (BMI) [Ratio] 24.2 kg/m2 24.2 k g/m2 [facility] ([facility] [place] body weight 196 [lb_av] 196 [lb_av] MED[facility] T ([facility] Oxygen saturation in Arterial blood by Pulse oximetry 97 % 97 % [facility] ([facility] Body weight 193.38 [lb_av] 193.38 [lb_av] MEDEN T ([facility] Body height 75 [in_i] 75 [in_i] [facility] ([facility] 6'3" Respiratory rate 18 /min 18 /min [facility] ( [facility] Body temperature 96.7 [degF] 96.7 [degF] [facility] ([facility] Heart rate 81 /min 81 /min [facility] ([facility] Diastolic blood pressure 73 mm[Hg] 73 mm[Hg] [facility] ([facility] Systolic blood pressure 139 mm[Hg] 139 mm[Hg] M EDENT ([facility] Respiratory rate 12 /min 12 /min [facility] ( [facility] Body mass index (BMI) [Ratio] 23.8 kg/m2 23.8 k g/m2 [facility] ([facility] Body weight 193.25 [lb_av] 193.25 [lb_av] [facility] T ([facility] Body height 75.5 [in_i] 75.5 [in_i] [facility] 6'3.50" Body temperature 97.1 [degF] 97.1 [degF] [facility] ([facility] Heart rate 76 /min 76 /min [facility] ([facility] Diastolic blood pressure 74 mm[Hg] 74 mm[Hg] [facility] ([facility] Systolic blood pressure 112 mm[Hg] 112 mm[Hg] M EDENT ([facility] Respiratory rate 15 /min 15 /min [facility] ( [facility] Body temperature 96.8 [degF] 96.8 [degF] [facility] ([facility] Heart rate 63 /min 63 /min [facility] ([facility] Diastolic blood pressure 70 mm[Hg] 70 mm[Hg] [facility] ([facility] Systolic blood pressure 155 mm[Hg] 155 mm[Hg] EDENT ([facility] Diastolic blood pressure 82 mm[Hg] 82 mm[Hg] [facility] ([facility] Systolic blood pressure 164 mm[Hg] 164 mm[Hg] EDENT ([facility] Body mass index (BMI) [Ratio] 24.3 kg/m2 24.3 k g/m2 [facility] ([facility] [place] body weight 196 [lb_av] 196 [lb_av] MED[facility] T ([facility] Oxygen saturation in Arterial blood by Pulse oximetry 98 % 98 % [facility] ([facility] Body weight 194.38 [lb_av] 194.38 [lb_av] MED[facility] T ([facility] Body height 75 [in_i] 75 [in_i] [facility] ([facility] 6'3" Body mass index (BMI) [Ratio] 24.6 kg/m2 24.6 k g/m2 [facility] ([facility] Body weight 196.50 [lb_av] 196.50 [lb_av] [facility] T ([facility] Body height 75 [in_i] 75 [in_i] [facility] ([facility] 6'3" Body temperature 96.2 [degF] 96.2 [degF] [facility] ([facility] Body mass index (BMI) [Ratio] 24.3 kg/m2 24.3 k g/m2 [facility] ([facility] [place] body weight 196 [lb_av] 196 [lb_av] MEDEN [...] k g/m2 [facility] ([facility] [place] body weight 202 [lb_av] 202 [lb_av] MED[facility] T ([facility] Oxygen saturation in Arterial blood by Pulse oximetry 98 % 98 % [facility] ([facility] Body weight 190.50 [lb_av] 190.50 [lb_av] MED[facility] T ([facility] [...] Systolic blood pressure 124 mm[Hg] 124 mm[Hg] M EDENT ([facility] Body mass index (BMI) [Ratio] 23.8 kg/m2 23.8 k g/m2 [facility] ([facility]) Body weight 190.50 [lb_av] 190.50 [lb_av] [facility] T ([facility]) Body height 75 [in_i] 75 [in_i] [facility] ([facility]) 6'3" Body temperature 96.6 [degF] 96.6 [degF] [facility] ([facility]) Respiratory rate 16 /min 16 /min [facility] ( [facility] Body temperature 97.1 [degF] 97.1 [degF] [facility] ([facility] Heart rate 58 /min 58 /min [facility] ([facility] Diastolic blood pressure 56 [...]
[2020-09-30 14:27] LABS: ALBUMIN 3.5 GM/DL (3.2-5.2); ALT/SGPT 26 U/L (12-78); BILIRUBIN,DIRECT 0.2 MG/DL (0.0-0.2); BILIRUBIN,TOTAL 0.4 MG/DL (0.2-1.0); BLOOD UREA NITROGEN 27 MG/DL (7-18); CARBON DIOXIDE LEVEL 30 MEQ/L (21-32); CHLORIDE LEVEL 107 MEQ/L (98-107); CK-MB VALUE MASS 1.8 NG/ML (<3.6); CPK CREATINE PHOSPHOKINASE 122 U/L (39-308); CREATININE FOR GFR 0.82 MG/DL (0.70-1.30); FREE T4 1.06 NG/DL (0.76-1.46); GLOMERULAR FILTRATION RATE > 60.0 (>35); GLUCOSE, FASTING 174 MG/DL (70-100); LIPASE 126 U/L (73-393); MAGNESIUM LEVEL 2.7 MG/DL (1.8-2.4); MB/CK RELATIVE INDEX 1.48 (< OR =4); NT-PRO BNP 317 PG/ML (<450); POTASSIUM SERUM 4.1 MEQ/L (3.5-5.1); SODIUM LEVEL 141 MEQ/L (136-145); THYROID STIMULATING HORMONE 0.816 uIU/ML (0.358-3.740); TROPONIN I < 0.02 NG/ML (< 0.10)
--- OUTSIDE RECORDS SUMMARY | 2020-09-30 14:31 | CCD ---
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 Name Role Phone Scordo, M Melody PA [...] MCELHERAN, JUSTINA PA Unavailable Unavailable Pleskach, Lani FILTER PULP WASHER Unavailable Unavailable Pleskach, Lani FILTER PULP WASHER Unavailable Unavailable Pleskach, Lani FILTER PULP WASHER Unavailable Unavailable Pleskach, Lani FILTER PULP WASHER Unavailable Unavailable Pleskach, Lani FILTER PULP WASHER Unavailable Unavailable Pleskach, Lani FILTER PULP WASHER Unavailable Unavailable Pleskach, Lani FILTER PULP WASHER Unavailable Unavailable Pleskach, Lani FILTER PULP WASHER Unavailable Unavailable Pleskach, Lani FILTER PULP WASHER Unavailable Unavailable Pleskach, Lani FILTER PULP WASHER Unavailable Unavailable Pleskach, Lani FILTER PULP WASHER Unavailable Unavailable Pleskach, Lani FILTER PULP WASHER Unavailable Unavailable Pleskach, Lani FILTER PULP WASHER Unavailable Unavailable Pleskach, Lani FILTER PULP WASHER Unavailable Unavailable Pleskach, Lani FILTER PULP WASHER Unavailable Unavailable Pleskach, Lani FILTER PULP WASHER Unavailable Unavailable Pleskach, Lani FILTER PULP WASHER Unavailable Unavailable Pleskach, Lani FILTER PULP WASHER Unavailable Unavailable Pleskach, Lani FILTER PULP WASHER Unavailable Unavailable Pleskach, Lani FILTER PULP WASHER Unavailable Unavailable Pleskach, Lain FILTER PULP WASHER Unavailable Unavailable Pleskach, Lani FILTER PULP WASHER Unavailable Unavailable Pleskach, Lani FILTER PULP WASHER Unavailable Unavailable Pleskach, Lani FILTER PULP WASHER Unavailable Unavailable Pleskach, Lani FILTER PULP WASHER Unavailable Unavailable Pleskach, Lani FILTER PULP WASHER Unavailable Unavailable Pleskach, Lani FILTER PULP WASHER Unavailable Unavailable Pleskach, Lani FILTER PULP WASHER Unavailable Unavailable Pleskach, Lani FILTER PULP WASHER Unavailable Unavailable Pleskach, Lani FILTER PULP WASHER Unavailable Unavailable Herbert, M Barratt PA Unavailable [...] Herbert, M Barratt PA Unavailable Unavailable Petrancosta, [place] Mavis PA-C Unavailable Unavailabl e Petrancosta, [place] Mavis PA-C Unavailable Unavailabl e Petrancosta, [place] Mavis PA-C Unavailable Unavailabl e Petrancosta, [place] Mavis PA-C Unavailable Unavailabl e Petrancosta, [place] Mavis PA-C Unavailable Unavailabl e Petrancosta, [place] Mavis PA-C Unavailable Unavailabl e Petrancosta, [place] Mavis PA-C Unavailable Unavailabl e Petrancosta, [place] Mavis PA-C Unavailable Unavailabl e Petrancosta, [place] Mavis PA-C Unavailable Unavailabl e Petrancosta, [place] Mavis PA-C Unavailable Unavailabl e Petrancosta, [place] Mavis PA-C Unavailable Unavailabl e Petrancosta, [place] Mavis PA-C Unavailable Unavailabl e Petrancosta, [place] Mavis PA-C Unavailable Unavailabl e Petrancosta, [place] Mavis PA-C Unavailable Unavailabl e Petrancosta, [place] Mavis PA-C Unavailable Unavailabl e Petrancosta, [place] Mavis PA-C Unavailable Unavailabl e Petrancosta, [place] Mavis PA-C Unavailable Unavailabl e Petrancosta, [place] Mavis PA-C Unavailable Unavailabl e Petrancosta, [place] Mavis PA-C Unavailable Unavailabl e Petrancosta, [place] Mavis PA-C Unavailable Unavailabl e Petrancosta, [place] Mavis PA-C Unavailable Unavailabl e Petrancosta, [place] Mavis PA-C Unavailable Unavailabl e Petrancosta, [place] Mavis PA-C Unavailable Unavailabl e Kd Herbert [...] Unavailable Unavailable Aviva Elliott MD Unavailable Unavailable Aviav Elliott MD Unavailable Unavailable Re-disclosure Warning The [...] is protected by Article 27-F of the [facility] Public Health law. If you continue you may have access to information: Regarding HIV / AIDS; Provided by facilities licensed or operated by the [facility] Office of Mental Health; or Provided by the [facility] Office for People With Developmental Disabilities. If such information is present, then the following [facility] mandated warning applies: This information has been [...] law may result in a fine or residential sentence or both. A general authorization for the release of medical or other information is NOT sufficient authorization for further disc losure. Family History Family Member Name Family Member Gender Family Member Status Date o f Status Description Data Source(s) Unknown Female Problem [facility] ([facility]) Unknown Unknown Problem [facility] ([facility] Encounters Encounter Providers Location Date Indications Data Source(s ) Office Visit Attender: Kelvin LOPEZ Physical Therapy 01:15:00 PM EST [facility] ([facility]) Outpatient Attender: Mavis Gillespie PA-C Main Office 09/19/2020 09:45:00 AM EST [facility] ([facility] Office Visit Attender: JUSTINA LOPEZ Physical Therapy 09/01/2020 11:45:00 AM EST [facility] ([facility]) Outpatient Attender: Mavis Gillespie PA-C Main Office 08/29/2020 12:45:00 PM EST [facility] ([facility] Outpatient Attender: Aviva Elliott MD Physical Therap y 07/20/2020 01:00:00 PM EST [facility] ([facility]) Outpatient Attender: Mavis Gillespie PA-C Main Office 06/09/2020 09:15:00 AM EST [facility] ([facility] Outpatient Attender: Mavis Gillespie PA-C Main Office 04/06/2020 09:15:00 AM EDT [facility] ([facility] Outpatient Attender: Kelvin LOPEZ Physical Therapy 02:15:00 PM EDT [facility] ([facility]) Outpatient Attender: Melody LOPEZ Main Office 01/28/2020 11:40:00 AM EDT [facility] ([facility] Unknown [id number] [address] 01/18/2020 12:00:00 AM EDT eCW1 ([facility]) Outpatient Referrer: Kelvin LOPEZ 01/12/2020 04:54:0 0 PM EDT [facility] Outpatient Referrer: Kelvin LOPEZ 01/12/2020 03:13:0 0 PM EDT [facility] Outpatient Referrer: Kelvin LOPEZ 01/08/2020 02:27:0 0 PM EDT [facility] Outpatient Referrer: Kelvin LOPEZ 01/07/2020 12:01:0 0 PM EDT [facility] Outpatient Attender: Lani Borges [facility] Main Office 12/30/2019 0 2:30:00 PM [...] Cephalexin 09/23/2020 12:00:00 AM EST active [facility] ([facility]) Cephalexin 500 MG Oral Capsule CEPHALEXIN 09/23/2020 [...] Hibiclens 08/29/2020 12:00:00 AM EST active [facility] ([facility]) 5 mg 08/11/2020 12:00:00 [...] 06/09/2020 12:00:00 AM EST ORAL active [facility] ([facility] 20 mg 05/13/2020 12:00:00 [...] type / Coverage type Policy ID Covered constitution party ID Covered constitution party's relationship to nma Policy Nam Plan Information [facility] [id number] SP [id number] [facility] JANIE DIV [id number] SP [id number] MEDICARE [id number] SP [id number] [facility] EMPIRE JANIE DIV [id number] SP [id number] [facility] [id number] SP [id number] MEDICARE [id number] SP [id number] A MEDICARE C [id number] S [id number] EMPIRE ([facility]) O [id number] S [id number] [facility] EMPIRE JANIE DIV UNAVAILABLE UNAVAILABLE ANS-Medicare Part B [id number] ANSI-Commercial [id number] [facility] Part B [id number] Self [id number] [place] Primary [id number] Self [id number] ANSI-Commercial [id number] ANS-Medicare Part B [id number] ANS-Medicare Part B [id number] ANSI-Commercial [id number] ANSI-Commercial [id number] ANSI-Medicare Part B [id number] [employer] Medigap Part B [id number] Self [id number] Medicare [place] Medicare Primary [id number] Self [id number] [employer] Medigap Part B [id number] Self [id number] Medicare [place] Medicare Primary [id number] Self [id number] [employer] Medigap Part B [id number] Self [id number] Medicare [place] Medicare Primary [id number] Self [id number] [employer] Medigap Part B [id number] Self [id number] Medicare [place] Medicare Primary [id number] Self [id number] [employer] Medigap Part B [id number] Self [id number] Medicare [place] Medicare Primary [id number] Self [id number] [employer] Medigap Part B [id number] Self [id number] Medicare [place] Medicare Primary [id number] Self [id number] Emp/United [employer] Medigap Part B [id number] Self [id number] Medicare [place] Medicare Primary [id number] Self [id number] Emp/[employer] Medigap Part B [id number] Self [id number] Medicare [place] Medicare Primary [id number] Self [id number] UNITED HEALTHCARE [id number] SP [id number] BCBS EMPIRE JANIE DIV [id number] SP [id number] Emp/[employer] Medigap Part B [id number] Self [id number] Medicare [place] Medicare Primary [id number] Self [id number] Emp/[employer] Medigap Part B Self Medicare [place] Medicare Primary Self [employer] Medigap Part B Self Medicare [place] Medicare Primary Self MEDICARE P [id number] S [id number] A [id number] A Surgeries/Procedures Procedure Description Date Indications Data Source(s) ARTHRP ACETBLR/PROX FEM PROSTC AGRFT/ALGRFT 09/05/2020 12:00:00 AM EST [facility] ([facility]) ARTHRP ACETBLR/PROX FEM PROSTC AGRFT/ALGRFT 09/05/2020 12:00:00 AM EST [facility] ([facility] X-Ray Hip Unilateral With Pelvis 2-3 Views 01/06/2020 12:00:00 AM EDT [facility] ([facility] Results ID Date Data Source [id number] 09/01/2020 04:35:00 PM EST [facility] ([facility] [...] MYOCARDIAL INFARCTION 2.5-3.5 ID Date Data Source [id number] 09/01/2020 02:40:00 PM EST [facility] ([facility]) Name Value Range Interpretation Code Description Data Di rce(s) Supporting Document(s) Prothrombin Time 13.2 s 12.5-14.3 [facility] ([facility]) Inr 0.98 [facility] ([facility]) THERAPUTIC HUMAN INR VALUES INDICATIONS NORMAL RANGES PROPHYLAXIS/TREATMENT OF: VENOUS THROMBOSIS 2.0-3.0 PULMONARY EMBOLISM 2.0-3.0 PREVENTION OF SYSTEMIC EMBOLISM FROM: TISSUE HEART VALVES 2.0-3.0 ACUTE MYOCARDIAL INFARCTION 2.0-3.0 VALVULAR HEART DISEASE 2.0-3.0 ATRIAL FIBRILLATION 2.0-3.0 MECHANICAL VALVES(HIGH RISK) 2.5-3.5 RECURRENT MYOCARDIAL INFARCTION 2.5-3.5 ID Date Data Source [id number] 08/31/2020 09:00:00 AM EST [facility] Name Value Range Interpretation Code Description Data Di rce(s) Supporting Document(s) SARS coronavirus 2 RNA Not Detected [facility] [place] This lab was ordered by [facility] and reported by [facility]. ID Date Data Source [id number] 08/29/2020 02:59:00 PM EST [facility] ([facility]) Name Value Range Interpretation Code Description Data Di rce(s) Supporting Document(s) Glucose, Fasting 106 mg/dL 70-100 [facility] ([facility]) Blood Urea Nitrogen 28 mg/dL 7-18 [facility] ([facility]) Sodium Level 141 meq/L 136-145 [facility] ([facility] Creatinine For GFR 1.10 mg/dL 0.70-1.30 [facility] ([facility]) Glomerular Filtration Rate Laboratory test result [facility] ([facility]) <content>Units are mL/min/1.73 m2</content>
<content></content>
<content>Chronic Kidney Disease Staging per NKF:</content>
<content></content>
<content>Stage I & II GFR >=60 Normal to Mildly Decreased</content>
<content>Stage III GFR 30- 59 Moderately Decreased</content>
<content>Stage IV GFR 15-29 Severely Decreased</content>
<content>Stage V GFR <15 Very Little GFR Left</content>
<content>ESRD GFR <15 on METAL TECHNICIAN</content>
<content></content> Carbon Dioxide Level 32 meq/L 21-32 [facility] Chloride Level 102 meq/L 98-107 [facility] ([facility] Potassium Serum 4.3 meq/L 3.5-5.1 [facility] ([facility]) Calcium Level 9.3 mg/dL 8.8-10.2 [facility] ([facility]) Anion Gap 7 meq/L 8-16 [facility] ([facility] Ast/Sgot 12 U/L 7-37 [facility] ([facility]) Bilirubin,Total 0.7 mg/dL 0.2-1.0 [facility] ([facility]) Alt/SGPT 26 U/L 12-78 [facility] ([facility]) Alkaline Phosphatase 53 U/L 45-117 [facility] Total Protein 7.4 GM/DL 6.4-8.2 [facility] ([facility]) Albumin/Globulin Ratio 1.2 [facility] ([facility]) Albumin 4.0 GM/DL 3.2-5.2 [facility] ([facility]) ID Date Data Source [id number] 08/29/2020 02:59:00 PM EST [facility] ([facility]) Name Value Range Interpretation Code Description Data Di rce(s) Supporting Document(s) Erythrocyte sedimentation rate by Westergren method 7 mm/hr 0-20 [facility] ([facility]) ID Date Data Source [id number] 08/29/2020 02:59:00 PM EST [facility] ([facility]) Name Value Range Interpretation Code Description Data Di rce(s) Supporting Document(s) White Blood Count 8.7 10 4.0-10.0 [facility] ([facility]) Hemoglobin 15.1 g/dL 13.5-17.5 [facility] ([facility]) Red Blood Count 5.12 10 4.30-6.10 [facility] ([facility]) Hematocrit 45.5 % 42.0-52.0 [facility] ([facility]) Mean Corpuscular Volume 88.9 fl 80.0-96.0 M EDENT ([facility]) Mean Corpuscular Hemoglobin 29.5 pg 27.0-33.0 [facility] ([facility]) Mean Corpuscular HGB Conc 33.2 g/dL 32.0-36.5 [facility] ([facility]) Red Cell Distribution Width 14.2 % 11.5-14.5 [facility] ([facility]) Platelet Count, Automated 204 10 150-450 [facility] ([facility]) Neutrophils % 73.6 % 36.0-66.0 [facility] ([facility]) Lymph % 15.3 % 24.0-44.0 [facility] ([facility]) [place] % 10.0 % 0.0-5.0 [facility] ([facility]) Immature Granulocyte % 0.2 % 0-3.0 [facility] ([facility]) Eos % 0.6 % 0.0-3.0 [facility] ([facility]) Baso % 0.3 % 0.0-1.0 [facility] ([facility]) Nucleated Red Blood Cell % 0.0 % 0-0 MED E[facility] ([facility]) Lymph # 1.3 10 1.5-5.0 [facility] ([facility]) Neutrophils # 6.4 10 1.5-8.5 [facility] [place] # 0.9 10 0.0-0.8 [facility] ([facility]) Baso # 0.0 10 0.0-0.2 [facility] ([facility] Eos # 0.1 10 0.0-0.5 [facility] ([facility]) ID Date Data Source [id number] 08/29/2020 02:59:00 PM EST [facility] ([facility] [...] Little GFR Left</content>
<content>ESRD GFR <15 on METAL TECHNICIAN</content>
<content></content> Sodium Level 141 meq/L 136-145 [facility] [...] [facility] ID Date Data Source [id number] 08/29/2020 02:59:00 PM EST [facility] ([facility] Name Value Range Interpretation Code Description Data Di rce(s) Supporting Document(s) Erythrocyte sedimentation rate by 2H Westergren method 7 mm/hr 0-2 0 [facility] ([facility] ID Date Data Source [id number] 08/29/2020 02:59:00 PM EST [facility] ([facility] [...] % 0.0-3.0 [facility] ([facility] [place] % 10.0 % 0.0-5.0 [facility] ([facility] [...] 10 1.5-8.5 [facility] ([facility] [place] # 0.9 10 0.0-0.8 [facility] ([facility] Baso # 0.0 10 0.0-0.2 [facility] ([facility] Eos # 0.1 10 0.0-0.5 [facility] ([facility] ID Date Data Source [id number] 08/26/2020 11:09:00 AM EST [facility] ([facility]) Name Value Range Interpretation Code Description Data Di rce(s) Supporting Document(s) Erythrocyte sedimentation rate by Westergren method Laboratory test result [facility] ([facility]) ID Date Data Source [id number] 08/26/2020 11:07:00 AM EST [facility] ([facility]) Name Value Range Interpretation Code Description Data Di rce(s) Supporting Document(s) EKG Laboratory test result [facility] ([facility]) ID Date Data Source [id number] 08/26/2020 11:07:00 AM EST [facility] ([facility]) Name Value Range Interpretation Code Description Data Di rce(s) Supporting Document(s) Chest x-ray Laboratory test result MED[facility] T ([facility]) ID Date Data Source [id number] 07/21/2020 01:05:00 PM EST [facility] ([facility]) Name Value Range Interpretation Code Description Data Di rce(s) Supporting Document(s) Laboratory test finding (navigational concept) Laboratory test result [facility] ([facility]) ID Date Data Source [id number] 06/07/2020 08:10:00 AM EST [facility] ([facility] [...] % 36.0-66.0 [facility] ([facility] [place] % 11.2 % 0.0-5.0 [facility] ([facility] is[facility] [...] 10 1.5-5.0 [facility] ([facility] [place] # 0.5 10 0.0-0.8 [facility] ([facility] Neutrophils # 2.4 10 1.5-8.5 [facility] ([facility] Baso # 0.1 10 0.0-0.2 [facility] ([facility] Eos # 0.2 10 0.0-0.5 [facility] ([facility] ID Date Data Source [id number] 06/07/2020 08:10:00 AM EST [facility] ([facility] [...] [facility] ID Date Data Source [id number] 06/07/2020 08:10:00 AM EST [facility] ([facility] Name Value Range Interpretation Code Description Data [facility](s) Supporting Document(s) Glucose, Fasting 99 [...] Little GFR Left</content>
<content>ESRD GFR <15 on METAL TECHNICIAN</content>
<content></content> Sodium Level 140 meq/L 136-145 [facility] [...] [facility] ID Date Data Source [id number] 01/29/2020 02:10:00 PM EDT [facility] ([facility] [...] % 11.5-14.5 [facility] ([facility] [place] % 10.0 % 0.0-5.0 [facility] ([facility] israel [...] 10 1.5-5.0 [facility] ([facility] [place] # 0.5 10 0.0-0.8 [facility] ([facility] Neutrophils # 3.1 10 1.5-8.5 [facility] ([facility] Baso # 0.0 10 0.0-0.2 [facility] ([facility] Eos # 0.1 10 0.0-0.5 [facility] ([facility] ID Date Data Source [id number] 01/29/2020 02:10:00 PM EDT [facility] ([facility] Name Value Range Interpretation Code Description Data Di rce(s) Supporting Document(s) Thyrotropin [Units/volume] in Serum or Plasma 1.180 uIU/ML 0.358-3.74 0 [facility] ([facility] ID Date Data Source [id number] 01/29/2020 02:10:00 PM EDT [facility] ([facility] [...] Little GFR Left</content>
<content>ESRD GFR <15 on METAL TECHNICIAN</content>
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 Barton.The benefits [...] rce(s) Supporting Document(s) ID Date Data Source [id number] 01/12/2020 12:00:00 AM EDT [facility] Kelvin Herbert Pa-C Patient Name: BAKARI [id number] [facility] Date of : 1940 Date of Exam: 01/12/2020[place], [place] [id number]#: Fax: [phone] EXAM: ARTHROCENTESIS LTHIP-ASPIR / INJ [...] 75% reduction in radiation.Dictated by Anat Fisher, [facility], with Dr. Barton.DIOMEDES Sullivan/Angelito you for referring [...] k g/m2 [facility] ([facility] [place] body weight 196 [lb_av] 196 [lb_av] MEDEN [...] rate 12 /min 12 /min [facility] ( [facility] Body mass index (BMI) [Ratio] 23.8 kg/m2 23.8 k g/m2 [facility] ([facility] Body weight 193.25 [lb_av] 193.25 [lb_av] MEDEN T ([facility] Body height 75.5 [in_i] 75.5 [in_i] [facility] ([facility] 6'3.50" Body temperature 97.1 [degF] 97.1 [degF] [facility] ([facility] Heart rate 76 /min 76 /min [facility] ([facility] Diastolic blood pressure 74 mm[Hg] 74 mm[Hg] [facility] ([facility] Systolic blood pressure 112 mm[Hg] 112 mm[Hg] M EDENT ([facility] ) Respiratory rate 15 /min [...] k g/m2 [facility] ([facility] [place] body weight 196 [lb_av] 196 [lb_av] MEDEN [...] [Ratio] 24.6 kg/m2 24.6 k g/m2 [facility] ([facility] Body weight 196.50 [lb_av] 196.50 [lb_av] MED[facility] T ([facility] Body height 75 [in_i] 75 [in_i] [facility] ([facility] 6'3" Body temperature 96.2 [degF] 96.2 [degF] [facility] ([facility] Body mass index (BMI) [Ratio] 24.3 kg/m2 24.3 k g/m2 [facility] ([facility] [place] body weight 196 [lb_av] 196 [lb_av] MEDEN [...] k g/m2 [facility] ([facility] [place] body weight 202 [lb_av] 202 [lb_av] MEDEN [...] [Ratio] 23.8 kg/m2 23.8 k g/m2 [facility] ([facility]) Body weight 190.50 [lb_av] 190.50 [lb_av] MEDEN T ([facility]) Body height 75 [in_i] 75 [in_i] [facility] ([facility]) 6'3" Body temperature 96.6 [degF] 96.6 [degF] [facility] ([facility]) Respiratory rate 16 /min 16 [...]
[2020-09-30 16:36] VITALS: BP 135/68
--- NOTE | 2020-09-30 17:19 | ECGEPIP ---
[facility] - ED Test Date: 2020-09-30 Pat Name: SILVESTRE DAVID Department: Room: - Gender: Male Weigher And Crusher: LUCERO : 1940 Requested By: SILVESTRE FRAZIER Order Number: [id number] Reading MD: Silvestre Kahn Measurements Intervals [place] Rate: 64 P: 0 UT: 184 QRS: 84 QRSD: 160 T: 23 QT: 454 QTc: 468 Interpretive Statements Sinus rhythm with occasional premature ventricular complexes Right bundle branch block Similar to tracing done 08-29-20 Electronically Signed on 09-30-2020 17:19:06 EST by Silvestre Kahn
== END 2020-09-30 16:51 | disposition home or self-care (01) ==
LOC: M ED 13:06
DX: I49.3 Ventricular premature depolarization (principal); I45.10 Unspecified right bundle-branch block; I10 Essential (primary) hypertension; E78.5 Hyperlipidemia, unspecified; F03.90 Unspecified dementia, unspecified severity, without behavioral disturbance, psychotic disturbance, mood disturbance, and anxiety; H40.9 Unspecified glaucoma; Z79.82 Long term (current) use of aspirin; Z79.899 Other long term (current) drug therapy

== ENCOUNTER → 2021-01-16 | Outpatient (REF) | payer MEDICARE, OTHER ==
[~2021-01-16] MED LIST changes: +ASPI-569 PO; -ASPI81TAEC PO; +CEPH500C PO
== END ==
LOC: M SFHCADAM 11:02
PROVIDERS: ATTEND Nurse Practitioner Women's Health
DX: R97.20 Elevated prostate specific antigen [PSA] (principal); Z87.898 Personal history of other specified conditions

== ENCOUNTER → 2021-07-03 | Outpatient (REF) | payer MEDICARE, OTHER ==
[~2021-07-03] MED LIST changes: +DONE5TAB86 PO; -DONETAB5 PO
[2021-07-03 13:01] LABS: BASO # 0.1 10^3/uL (0.0-0.2); BASO % 1.3 % (0.0-1.0); EOS # 0.1 10^3/uL (0.0-0.5); HEMATOCRIT 46.8 % (42.0-52.0); HEMOGLOBIN 14.9 g/dl (13.5-17.5); LYMPH # 1.7 10^3/uL (1.5-5.0); LYMPH % 31.2 % (24.0-44.0); MEAN CORPUSCULAR HEMOGLOBIN 28.7 pg (27.0-33.0); MEAN CORPUSCULAR HGB CONC 31.8 g/dl (32.0-36.5); MEAN CORPUSCULAR VOLUME 90.2 fl (80.0-96.0); MONO # 0.5 10^3/uL (0.0-0.8); MONO % 9.6 % (2.0-8.0); NEUTROPHILS % 55.7 % (36.0-66.0); PLATELET COUNT, AUTOMATED 212 10^3/uL (150-450); RED BLOOD COUNT 5.19 10^6/uL (4.30-6.10); WHITE BLOOD COUNT 5.4 10^3/uL (4.0-10.0)
[2021-07-03 13:38] LABS: ALBUMIN 3.9 GM/DL (3.2-5.2); ALT/SGPT 22 U/L (12-78); BILIRUBIN,TOTAL 0.8 MG/DL (0.2-1.0); BLOOD UREA NITROGEN 21 MG/DL (7-18); CALCIUM LEVEL 8.9 MG/DL (8.8-10.2); CARBON DIOXIDE LEVEL 30 MEQ/L (21-32); CHLORIDE LEVEL 107 MEQ/L (98-107); CHOLESTEROL LEVEL 167 MG/DL (<200); CHOLESTEROL RISK RATIO 3.036 (<5); CREATININE FOR GFR 0.84 MG/DL (0.70-1.30); GLOMERULAR FILTRATION RATE > 60.0 (>35); GLUCOSE, FASTING 82 MG/DL (70-100); HDL CHOLESTEROL 55 MG/DL (>40); LDL CHOLESTEROL 86 MG/DL (<100); NON-HDL-C 112 MG/DL; POTASSIUM SERUM 4.2 MEQ/L (3.5-5.1); SODIUM LEVEL 143 MEQ/L (136-145); TOTAL PROTEIN 7.5 GM/DL (6.4-8.2); TRIGLYCERIDES LEVEL 129 MG/DL (<150)
== END ==
LOC: M LABDRWAD 12:39
PROVIDERS: ATTEND Family Medicine
DX: I10 Essential (primary) hypertension (principal)

== ENCOUNTER → 2022-01-22 | Outpatient (REF) | payer MEDICARE, OTHER | LOC: M SFHCADAM 11:25 | PROVIDERS: ATTEND Nurse Practitioner Women's Health | DX: Z87.898 Personal history of other specified conditions (principal); N40.0 Benign prostatic hyperplasia without lower urinary tract symptoms ==

== ENCOUNTER → 2022-07-05 | Outpatient (REF) | payer MEDICARE, OTHER ==
[2022-07-05 14:45] LABS: BASO # 0.1 10^3/uL (0.0-0.2); BASO % 1.5 % (0.0-1.0); EOS # 0.2 10^3/uL (0.0-0.5); EOS % 3.8 % (0.0-3.0); HEMATOCRIT 46.1 % (42.0-52.0); HEMOGLOBIN 14.7 g/dl (13.5-17.5); LYMPH # 1.7 10^3/uL (1.5-5.0); LYMPH % 32.1 % (24.0-44.0); MEAN CORPUSCULAR HEMOGLOBIN 28.9 pg (27.0-33.0); MEAN CORPUSCULAR HGB CONC 31.9 g/dl (32.0-36.5); MEAN CORPUSCULAR VOLUME 90.7 fl (80.0-96.0); MONO # 0.6 10^3/uL (0.0-0.8); NEUTROPHILS # 2.7 10^3/uL (1.5-8.5); NEUTROPHILS % 50.4 % (36.0-66.0); PLATELET COUNT, AUTOMATED 201 10^3/uL (150-450); RED BLOOD COUNT 5.08 10^6/uL (4.30-6.10); WHITE BLOOD COUNT 5.3 10^3/uL (4.0-10.0)
[2022-07-05 14:58] LABS: THYROID STIMULATING HORMONE 1.339 uIU/ML (0.55-4.78)
[2022-07-05 14:59] LABS: FREE T4 1.15 NG/DL (0.89-1.76)
[2022-07-05 15:01] LABS: ALKALINE PHOSPHATASE 47 U/L (46-116); ALT/SGPT 19 U/L (7.0-40); AST/SGOT 20 U/L (<34); BLOOD UREA NITROGEN 29 MG/DL (9-23); CARBON DIOXIDE LEVEL 29 MMOL/L (20-31); CHLORIDE LEVEL 105 MMOL/L (98-107); CHOLESTEROL LEVEL 149 MG/DL (<200); CHOLESTEROL RISK RATIO 3.03 (<5); CREATININE FOR GFR 0.85 MG/DL (0.70-1.30); GLOMERULAR FILTRATION RATE > 60.0 (>35); GLUCOSE, FASTING 98 MG/DL (74-106); HDL CHOLESTEROL 49.1 MG/DL (>40); LDL CHOLESTEROL 87.3 MG/DL (<100); NON-HDL-C 100 MG/DL; POTASSIUM SERUM 4.1 MMOL/L (3.5-5.1); SODIUM LEVEL 143 MMOL/L (136-145); TOTAL PROTEIN 7.2 G/DL (5.7-8.2); TRIGLYCERIDES LEVEL 63 MG/DL (<150)
== END ==
LOC: M LABDRWAD 12:43
PROVIDERS: ATTEND Nurse Practitioner Family
DX: I10 Essential (primary) hypertension (principal); E78.2 Mixed hyperlipidemia; R53.83 Other fatigue

== ENCOUNTER → 2022-12-26 | Outpatient (CLI) | payer MEDICARE, BC, OTHER | LOC: M RAD 14:26 | PROVIDERS: ATTEND Registered Nurse | DX: M79.672 Pain in left foot (principal); M19.071 Primary osteoarthritis, right ankle and foot; M19.072 Primary osteoarthritis, left ankle and foot ==

== ENCOUNTER 2023-01-13 08:28 | Emergency (ER) | payer MEDICARE, BC, OTHER ==
[~2023-01-13] VITALS: Ht 193 cm; Wt 84.8 kg
[2023-01-13] MEDS ORDERED: LIDO5DIS41 TD (09:32)
[2023-01-13 09:55] VITALS: BP 189/88; TEMP 97.2; O2SAT 98
== END 2023-01-13 10:08 | disposition home or self-care (01) ==
LOC: EDBD 08:28 → M ED 08:28
DX: M16.11 Unilateral primary osteoarthritis, right hip (principal); I48.91 Unspecified atrial fibrillation; I10 Essential (primary) hypertension; F03.90 Unspecified dementia, unspecified severity, without behavioral disturbance, psychotic disturbance, mood disturbance, and anxiety; Z96.642 Presence of left artificial hip joint; Z79.899 Other long term (current) drug therapy

== ENCOUNTER → 2023-01-16 | Outpatient (REF) | payer MEDICARE, BC, OTHER ==
[~2023-01-16] MED LIST changes: +ACET-683 PO; +COLA100C5; +LIDO5DIS41 TD; +LIDO5DIS41 TOP; +MIRA3350 PO; +NAPR-849 PO; +VALI2TAB PO
== END ==
LOC: M LAB REF 16:59
PROVIDERS: ATTEND Nurse Practitioner Family
DX: R30.0 Dysuria (principal)

== ENCOUNTER 2023-01-17 10:19 | Emergency (ER) | payer MEDICARE, BC, OTHER ==
[~2023-01-17] VITALS: Ht 193 cm; Wt 84.1 kg
[~2023-01-17 10:19] MED LIST changes: -ACET-683 PO; -COLA100C5; -LIDO5DIS41 TOP; -MIRA3350 PO; -NAPR-849 PO; -VALI2TAB PO
[2023-01-17] MEDS ORDERED: NAPROXEN 250 MG TAB PO ONE (13:50)
[2023-01-17] MEDS ORDERED: diazePAM 2 MG TAB PO ONE (13:50)
[2023-01-17] MEDS ORDERED: VALI2TAB PO (15:56)
[2023-01-17] MEDS ORDERED: LIDO5DIS41 TOP (15:56)
[2023-01-17] MEDS ORDERED: NAPR-849 PO (15:56)
[2023-01-17 16:08] VITALS: BP 152/77; TEMP 97.6; O2SAT 99
== END 2023-01-17 16:09 | disposition home or self-care (01) ==
LOC: M ED 10:19
DX: S32.020A Wedge compression fracture of second lumbar vertebra, initial encounter for closed fracture (principal); S32.030A Wedge compression fracture of third lumbar vertebra, initial encounter for closed fracture; M51.26 Other intervertebral disc displacement, lumbar region; M47.9 Spondylosis, unspecified; I10 Essential (primary) hypertension; E78.00 Pure hypercholesterolemia, unspecified; M43.16 Spondylolisthesis, lumbar region; Z79.899 Other long term (current) drug therapy

== ENCOUNTER 2023-01-19 10:12 | Emergency (ER) | payer MEDICARE, BC, OTHER ==
[~2023-01-19] VITALS: Ht 193 cm; Wt 84.1 kg
[~2023-01-19 10:12] MED LIST changes: +LIDO5DIS41 TOP; +NAPR-849 PO; +VALI2TAB PO
[2023-01-19 10:34] VITALS: TEMP 98.2
[2023-01-19] MEDS ORDERED: ACET-683 PO (10:45)
[2023-01-19] MEDS ORDERED: COLA100C5 (10:45)
[2023-01-19] MEDS ORDERED: MIRA3350 PO (10:45)
[2023-01-19 14:15] VITALS: BP 144/74; O2SAT 98
== END 2023-01-19 14:25 | disposition home or self-care (01) ==
LOC: EDBD 10:12 → M ED 10:12
DX: M25.551 Pain in right hip (principal); I10 Essential (primary) hypertension; M19.90 Unspecified osteoarthritis, unspecified site; Z96.642 Presence of left artificial hip joint; Z79.899 Other long term (current) drug therapy

== ENCOUNTER → 2023-02-13 | Outpatient (REF) | payer MEDICARE, OTHER ==
[~2023-02-13] MED LIST changes: +ACET-683 PO; +COLA100C5; +MIRA3350 PO
[2023-02-13 13:06] LABS: BASO # 0.1 10^3/uL (0.0-0.2); BASO % 0.7 % (0.0-1.0); EOS # 0.2 10^3/uL (0.0-0.5); EOS % 2.2 % (0.0-3.0); HEMATOCRIT 41.2 % (42.0-52.0); HEMOGLOBIN 13.2 g/dl (13.5-17.5); LYMPH # 1.2 10^3/uL (1.5-5.0); LYMPH % 18.4 % (24.0-44.0); MEAN CORPUSCULAR HEMOGLOBIN 29.3 pg (27.0-33.0); MEAN CORPUSCULAR VOLUME 91.4 fl (80.0-96.0); MONO # 0.7 10^3/uL (0.0-0.8); MONO % 11.1 % (2.0-8.0); NEUTROPHILS # 4.5 10^3/uL (1.5-8.5); NEUTROPHILS % 67.3 % (36.0-66.0); PLATELET COUNT, AUTOMATED 238 10^3/uL (150-450); RED BLOOD COUNT 4.51 10^6/uL (4.30-6.10); WHITE BLOOD COUNT 6.7 10^3/uL (4.0-10.0)
[2023-02-13 13:16] LABS: ALKALINE PHOSPHATASE 131 U/L (46-116); ALT/SGPT 45 U/L (7.0-40); AST/SGOT 27 U/L (<34); BILIRUBIN,TOTAL 0.7 MG/DL (0.3-1.2); BLOOD UREA NITROGEN 38 MG/DL (9-23); CARBON DIOXIDE LEVEL 33 MMOL/L (20-31); CHLORIDE LEVEL 105 MMOL/L (98-107); CREATININE FOR GFR 0.81 MG/DL (0.70-1.30); GLOMERULAR FILTRATION RATE > 60.0 (>35); GLUCOSE, FASTING 86 MG/DL (74-106); POTASSIUM SERUM 4.4 MMOL/L (3.5-5.1); SODIUM LEVEL 142 MMOL/L (136-145); TOTAL PROTEIN 6.8 G/DL (5.7-8.2)
== END ==
LOC: M LABDRWAD 12:35
PROVIDERS: ATTEND Nurse Practitioner Family
DX: R19.5 Other fecal abnormalities (principal); Z87.898 Personal history of other specified conditions

== ENCOUNTER → 2023-09-13 | Outpatient (CLI) | payer MEDICARE, BC, OTHER | LOC: M RAD 14:00 | PROVIDERS: ATTEND Physician Assistant | DX: S32.038D Other fracture of third lumbar vertebra, subsequent encounter for fracture with routine healing (principal); M48.062 Spinal stenosis, lumbar region with neurogenic claudication ==

== ENCOUNTER 2023-11-29 11:02 | Inpatient (IN) | payer MEDICARE, BC ==
[~2023-11-29] VITALS: Ht 188 cm; Wt 82.7 kg
[~2023-11-29 11:02] MED LIST changes: -COLA100C5; +COLA100C5 PO
[2023-11-29 11:28] LABS: VENOUS BASE EXCESS 0.2 (-2.0-2.0); VENOUS HCO3 25.5 MMOL/L (23.0-27.0); VENOUS O2 SATURATION 65.7 % (60.0-80.0); VENOUS PARTIAL PRESSURE CO2 43.9 mmHg (38.0-50.0); VENOUS PARTIAL PRESSURE O2 32.1 mmHg (30.0-50.0); VENOUS PH 7.382 UNITS (7.330-7.430); VENOUS STANDARD HCO3 23.9 MMOL/L; VENOUS TOTAL CO2 26.9 MMOL/L (24.0-28.0)
[2023-11-29 11:37] LABS: BASO % 0.3 % (0.0-1.0); EOS % 0.2 % (0.0-3.0); HEMATOCRIT 40.7 % (42.0-52.0); HEMOGLOBIN 13.5 g/dl (13.5-17.5); LYMPH # 0.7 10^3/uL (1.5-5.0); LYMPH % 10.9 % (24.0-44.0); MEAN CORPUSCULAR HEMOGLOBIN 29.6 pg (27.0-33.0); MEAN CORPUSCULAR HGB CONC 33.2 g/dl (32.0-36.5); MEAN CORPUSCULAR VOLUME 89.3 fl (80.0-96.0); MONO # 0.7 10^3/uL (0.0-0.8); MONO % 10.5 % (2.0-8.0); NEUTROPHILS # 5.1 10^3/uL (1.5-8.5); NEUTROPHILS % 77.5 % (36.0-66.0); PLATELET COUNT, AUTOMATED 161 10^3/uL (150-450); RED BLOOD COUNT 4.56 10^6/uL (4.30-6.10); WHITE BLOOD COUNT 6.6 10^3/uL (4.0-10.0)
[2023-11-29 11:54] LABS: OSMOLALITY SERUM 296 MOSM/KG (280-301)
[2023-11-29 12:09] LABS: ALBUMIN 3.9 G/DL (3.2-5.2); ALKALINE PHOSPHATASE 65 U/L (46-116); ALT/SGPT 16 U/L (7.0-40); AST/SGOT 21 U/L (<34); BILIRUBIN,DIRECT 0.2 MG/DL (<0.4); BILIRUBIN,TOTAL 0.6 MG/DL (0.3-1.2); BLOOD UREA NITROGEN 21 MG/DL (9-23); CALCIUM LEVEL 8.8 MG/DL (8.3-10.6); CARBON DIOXIDE LEVEL 28 MMOL/L (20-31); CHLORIDE LEVEL 98 MMOL/L (98-107); CREATININE FOR GFR 0.85 MG/DL (0.70-1.30); GLOMERULAR FILTRATION RATE > 60.0 (>35); GLUCOSE, FASTING 101 MG/DL (74-106); POTASSIUM SERUM 3.8 MMOL/L (3.5-5.1); SODIUM LEVEL 134 MMOL/L (136-145); TOTAL PROTEIN 7.2 G/DL (5.7-8.2)
[2023-11-29 12:12] LABS: THYROID STIMULATING HORMONE 1.372 uIU/ML (0.55-4.78)
[2023-11-29] MEDS ORDERED: ENTER DRUG NAME HERE (PATIENT'S OWN MED) PO PRN (13:30)
[2023-11-29] MEDS ORDERED: MELA3TAB30 PO (14:00)
[2023-11-29] MEDS ORDERED: PRES10CA2 PO (14:00)
[2023-11-29] MEDS ORDERED: QC F0.52 PO (14:00)
[2023-11-29] MEDS ORDERED: AMLO25TA PO (14:00)
[2023-11-29] MEDS ORDERED: DONE5TAB86 PO (14:00)
[2023-11-29] MEDS ORDERED: HOME MED LIST COMPLETE! XX SCH (14:05)
[2023-11-29] MEDS ORDERED: IPRATROPIUM 0.5MG/ALBUTEROL 2.5MG INH SOL UD 3ML (DUONEB) NEB PRN (14:05)
[2023-11-29 15:30] VITALS: BP 138/72; TEMP 98.4; O2SAT 94
[2023-11-29] MEDS: guaiFENesin ER TABLET 600 MG TAB PO SCH (15:55)
[2023-11-29] MEDS: OXYMETAZOLINE 0.05% NASAL SPRAY (AFRIN) SCH (15:56)
[2023-11-29] MEDS: NS 1,000 ML IV SCH (16:16)
[2023-11-29] MEDS: MONTELUKAST 10 MG TAB PO SCH (16:18)
[2023-11-29] MEDS: FLUTICASONE PROP 0.05% NASAL SPRAY 16 GM (FLONASE) NARES SCH (16:19)
[2023-11-29 16:43] LABS: AMPHETAMINES LEVEL URINE NEGATIVE (NEGATIVE); BARBITURATES URINE NEGATIVE (NEGATIVE); BENZODIAZEPINES URINE NEGATIVE (NEGATIVE); CANNABINOIDS URINE NEGATIVE (NEGATIVE); COCAINE METABOLITE URINE NEGATIVE (NEGATIVE); METHADONE URINE NEGATIVE (NEGATIVE); OPIATES URINE NEGATIVE (NEGATIVE); PHENCYCLIDINE URINE NEGATIVE (NEGATIVE)
[2023-11-29 21:10] VITALS: BP 137/69; TEMP 98.2; O2SAT 95
[2023-11-29] MEDS: GABAPENTIN 100 MG CAP PO SCH (21:13)
[2023-11-29] MEDS: LATANOPROST 0.005% OPHTH SOLN 2.5 ML OU SCH (21:14)
[2023-11-30 05:33] VITALS: BP 126/63; TEMP 98.1; O2SAT 94
[2023-11-30] MEDS: OMEGA-3 1000MG CAPSULE PO SCH (08:58)
[2023-11-30 14:57] VITALS: BP 111/55; TEMP 98.1; O2SAT 93
[2023-11-30 19:36] VITALS: BP 124/58; TEMP 99; O2SAT 95
[2023-11-30 20:55] VITALS: BP 138/62; O2SAT 95
[2023-11-30 20:58] VITALS: BP 138/62
[2023-12-01 05:40] VITALS: BP 122/55; TEMP 98.1; O2SAT 93
== END 2023-12-01 10:47 | disposition home or self-care (01) | DRG 153 ==
LOC: M ED 11:02 → EDBD 11:02 → M ED INP 13:26 → M MSPAV 15:29
PROVIDERS: ADMIT General Practice; ATTEND General Practice
DX: J11.1 Influenza due to unidentified influenza virus with other respiratory manifestations (principal); E87.1 Hypo-osmolality and hyponatremia; F03.90 Unspecified dementia, unspecified severity, without behavioral disturbance, psychotic disturbance, mood disturbance, and anxiety; I10 Essential (primary) hypertension; E78.5 Hyperlipidemia, unspecified; N40.0 Benign prostatic hyperplasia without lower urinary tract symptoms; M54.9 Dorsalgia, unspecified; T42.6X5A Adverse effect of other antiepileptic and sedative-hypnotic drugs, initial encounter; G89.29 Other chronic pain; F41.9 Anxiety disorder, unspecified; Z96.642 Presence of left artificial hip joint; R26.89 Other abnormalities of gait and mobility; G47.00 Insomnia, unspecified; Z79.899 Other long term (current) drug therapy; Z11.52 Encounter for screening for COVID-19; Z74.1 Need for assistance with personal care

== ENCOUNTER → 2024-01-14 | Outpatient (REF) | payer MEDICARE, OTHER ==
[~2024-01-14] MED LIST changes: +PRES10CA2 PO; +QC F0.52 PO
[2024-01-14 18:26] LABS: BASO # 0.1 10^3/uL (0.0-0.2); BASO % 1.3 % (0.0-1.0); EOS # 0.1 10^3/uL (0.0-0.5); EOS % 1.7 % (0.0-3.0); HEMATOCRIT 42.1 % (42.0-52.0); HEMOGLOBIN 13.5 g/dl (13.5-17.5); LYMPH # 1.5 10^3/uL (1.5-5.0); LYMPH % 27.6 % (24.0-44.0); MEAN CORPUSCULAR HEMOGLOBIN 29.7 pg (27.0-33.0); MEAN CORPUSCULAR HGB CONC 32.1 g/dl (32.0-36.5); MEAN CORPUSCULAR VOLUME 92.5 fl (80.0-96.0); MONO # 0.6 10^3/uL (0.0-0.8); MONO % 11.5 % (2.0-8.0); NEUTROPHILS # 3.1 10^3/uL (1.5-8.5); NEUTROPHILS % 57.7 % (36.0-66.0); PLATELET COUNT, AUTOMATED 208 10^3/uL (150-450); RED BLOOD COUNT 4.55 10^6/uL (4.30-6.10); WHITE BLOOD COUNT 5.4 10^3/uL (4.0-10.0)
[2024-01-14 18:35] LABS: ALBUMIN 3.9 G/DL (3.2-5.2); ALKALINE PHOSPHATASE 57 U/L (46-116); ALT/SGPT 18 U/L (7.0-40); AST/SGOT 9 U/L (<34); BILIRUBIN,TOTAL 0.7 MG/DL (0.3-1.2); BLOOD UREA NITROGEN 35 MG/DL (9-23); CALCIUM LEVEL 9.2 MG/DL (8.3-10.6); CARBON DIOXIDE LEVEL 30 MMOL/L (20-31); CHLORIDE LEVEL 105 MMOL/L (98-107); CREATININE FOR GFR 0.89 MG/DL (0.70-1.30); GLOMERULAR FILTRATION RATE > 60.0 (>35); GLUCOSE, FASTING 121 MG/DL (74-106); POTASSIUM SERUM 4.3 MMOL/L (3.5-5.1); SODIUM LEVEL 142 MMOL/L (136-145); TOTAL PROTEIN 7.2 G/DL (5.7-8.2)
== END ==
LOC: M LABDRWAD 17:19
PROVIDERS: ATTEND Nurse Practitioner Family
DX: I10 Essential (primary) hypertension (principal)

== ENCOUNTER → 2024-04-29 | Outpatient (REF) | payer MEDICARE, OTHER ==
[2024-04-29 15:25] LABS: APPEARANCE, URINE HAZY (CLEAR); BACTERIA, URINE AUTO NEGATIVE (NEGATIVE); BILIRUBIN, URINE AUTO NEGATIVE (NEGATIVE); BLOOD, URINE BLOOD NEGATIVE (NEGATIVE); COLOR, URINE AMBER (YELLOW); GLUCOSE, URINE (UA) AUTO NEGATIVE (NEGATIVE); KETONE, URINE AUTO TRACE mg/dL (NEGATIVE); LEUKOCYTE ESTERASE, URINE AUTO NEGATIVE (NEGATIVE); MUCUS, URINE SMALL (NEGATIVE); NITRITE, URINE AUTO NEGATIVE (NEGATIVE); PROTEIN, URINE AUTO 1+ mg/dL (NEGATIVE); RBC, URINE AUTO 1 /HPF (0-3); SPECIFIC GRAVITY URINE AUTO 1.018 (1.002-1.035); SQUAMOUS EPITHELIAL CELL UR AU 0 /HPF (0-6); WBC, URINE AUTO 4 /HPF (0-3)
== END ==
LOC: M LAB REF 15:10
PROVIDERS: ATTEND Nurse Practitioner Family
DX: R30.0 Dysuria (principal)

== ENCOUNTER → 2024-08-27 | Outpatient (CLI) | payer MEDICARE, OTHER ==
[~2024-08-27] MED LIST changes: +GABA-1172 PO; -GABA-282 PO
== END ==
LOC: M ADAMS 11:06
PROVIDERS: ATTEND Nurse Practitioner Family
DX: R06.02 Shortness of breath (principal); J98.11 Atelectasis

== ENCOUNTER → 2024-09-18 | Outpatient (REF) | payer MEDICARE, OTHER ==
[2024-09-18 14:33] LABS: BASO % 0.7 % (0.0-1.0); EOS # 0.1 10^3/uL (0.0-0.5); EOS % 2.1 % (0.0-3.0); HEMATOCRIT 43.8 % (42.0-52.0); LYMPH # 1.7 10^3/uL (1.5-5.0); LYMPH % 30.5 % (24.0-44.0); MEAN CORPUSCULAR HEMOGLOBIN 29.2 pg (27.0-33.0); MEAN CORPUSCULAR VOLUME 91.4 fl (80.0-96.0); MONO # 0.6 10^3/uL (0.0-0.8); MONO % 10.9 % (2.0-8.0); NEUTROPHILS # 3.1 10^3/uL (1.5-8.5); NEUTROPHILS % 55.4 % (36.0-66.0); PLATELET COUNT, AUTOMATED 266 10^3/uL (150-450); RED BLOOD COUNT 4.79 10^6/uL (4.30-6.10); WHITE BLOOD COUNT 5.7 10^3/uL (4.0-10.0)
[2024-09-18 15:01] LABS: ALBUMIN 3.6 G/DL (3.2-5.2); ALKALINE PHOSPHATASE 53 U/L (40-129); ALT/SGPT 25 U/L (7.0-40); AST/SGOT 14 U/L (<34); BILIRUBIN,TOTAL 0.8 MG/DL (0.3-1.2); BLOOD UREA NITROGEN 28 MG/DL (9-23); CALCIUM LEVEL 9.2 MG/DL (8.3-10.6); CARBON DIOXIDE LEVEL 32 MMOL/L (20-31); CHLORIDE LEVEL 104 MMOL/L (98-107); CREATININE FOR GFR 0.95 MG/DL (0.70-1.30); GLOMERULAR FILTRATION RATE > 60.0 (>35); GLUCOSE, FASTING 65 MG/DL (74-106); IRON (FE) 130 UG/DL (65-175); MAGNESIUM LEVEL 2.5 MG/DL (1.8-2.4); PERCENT SATURATION 51.6 % (19.7-50.0); POTASSIUM SERUM 4.7 MMOL/L (3.5-5.1); SODIUM LEVEL 144 MMOL/L (136-145); TOTAL IRON BINDING CAPACITY 252 UG/DL (250-425); TOTAL PROTEIN 7.1 G/DL (5.7-8.2)
[2024-09-18 15:02] LABS: THYROID STIMULATING HORMONE 2.008 uIU/ML (0.55-4.78); TOTAL 25(OH) VITAMIN D 50.6 NG/ML (20.0-100.0)
[2024-09-18 15:03] LABS: FERRITIN 204.5 NG/ML (10.5-307.3); FREE T4 1.23 NG/DL (0.89-1.76)
== END ==
LOC: M LABDRWAD 13:25
PROVIDERS: ATTEND Nurse Practitioner Family
DX: R53.83 Other fatigue (principal); Z79.899 Other long term (current) drug therapy